=== PATIENT | male | born 1945 | race Caucasian/White ===

== ENCOUNTER 2019-05-11 13:28 | Observation (INO) | payer MEDICARE ==
[~2019-05-11 13:28] MED LIST: ISOVUE-370 76%-LOCM 1 ML ONE
[2019-05-11 14:02] LABS: #Lymphocytes 1.1 thou/uL (1.20-3.40); #Monocytes 0.6 thou/uL (0.11-0.59); #Neutrophils 6.2 thou/uL (1.40-6.50); %Basophils 0.3 % (0.0-1.0); %Eosinophils 0.6 % (0.0-10.0); %Lymphocytes 14.1 % (21.0-51.0); %Monocytes 7.1 % (0.0-10.0); Hemoglobin 13.5 g/dL (14.0-18.0); Mean Corpuscular HGB CONC 34.3 g/dL (32.0-36.0); Mean Corpuscular Hemoglobin 34.5 pg (27.0-31.0); Mean Platelet Volume 9.3 fL (7.4-10.4); Platelet Count 173 thou/uL (130-400); RBC Distribution Width 12.9 % (11.5-14.5); Red Blood Cell (RBC) Count 3.92 mill/uL (4.70-6.10); White Blood Cell (WBC) Count 7.9 thou/uL (4.8-10.8)
[2019-05-11 14:22] LABS: ALT (SGPT) 16 U/L (8-55); AST (SGOT) 32 U/L (5-34); Albumin 4.2 g/dL (3.4-4.8); Alkaline Phosphatase 74 U/L (40-150); Anion Gap 12 mmol/L (10-20); BUN (Urea Nitrogen) 15 mg/dL (8.4-25.7); Bilirubin, Total 0.6 mg/dL (0.2-1.2); Calc. Creatinine Clearance 0 mL/min (70-130); Carbon Dioxide 24 mmol/L (23-31); Chloride 108 mmol/L (98-107); Estimated GFR-MDRD 73; Globulin 2.3 g/dL (2.4-3.5); Glucose 122 mg/dL (83-110); Potassium 3.8 mmol/L (3.5-5.1); Protein, Total 6.5 g/dL (5.8-8.1); Sodium 140 mmol/L (136-145)
[2019-05-11 14:50] LABS: CKMB 19.3 ng/mL (0-6.6)
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
[2019-05-11] MEDS ORDERED: Nitroglycerin 2% Ointment 1 INCH/1 GM Packet ONE (15:46)
[2019-05-11] MEDS ORDERED: Cyclobenzaprine 10 MG TAB ONE (15:46)
[2019-05-11] MEDS ORDERED: Morphine 2 MG/ML SYRINGE SLOW IVP PRN (16:03)
[2019-05-11] MEDS ORDERED: Dextrose 5% in Water 1,000 ML IV PRN (16:03)
[2019-05-11] MEDS ORDERED: hydrALAZINE 20 MG/ML VIAL SLOW IVP PRN (16:03)
[2019-05-11] MEDS ORDERED: Promethazine HCl 25 MG/ML VIAL IM PRN (16:03)
[2019-05-11] MEDS ORDERED: Ondansetron PF 4 MG/2 ML Vial IVP PRN (16:03)
[2019-05-11] MEDS ORDERED: Dextrose 50% Abboject 50 ML SYRINGE SLOW IVP PRN (16:03)
[2019-05-11] MEDS ORDERED: Rib Fracture Protocol PO SCH (16:15)
[2019-05-11] MEDS ORDERED: Ketorolac Tromethamine 30 MG/ML VIAL ONE (17:24)
[2019-05-11 18:46] VITALS: BMI 20.4
[2019-05-11] MEDS ORDERED: Sodium Chloride 0.9% 1,000 ML IV SCH (18:46)
[2019-05-11] MEDS ORDERED: Cyclobenzaprine 10 MG TAB PO PRN (19:00)
[2019-05-11] MEDS: Famotidine 20 MG TAB PO SCH (20:04)
[2019-05-11] MEDS: Gabapentin 100 MG CAP PO SCH (20:04)
[2019-05-11 20:56] LABS: Troponin I 0.074 ng/mL (< 0.028)
[2019-05-11] MEDS: Ibuprofen 600 MG TAB PO SCH (22:20)
[2019-05-12] MEDS: Acetaminophen 500 MG TAB PO SCH ×2 (00:57→05:18)
[2019-05-12] MEDS: traMADol HCl 50 MG TAB PO SCH ×2 (00:57→05:19)
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
[2019-05-12 02:52] LABS: #Basophils 0.1 thou/uL (0.0-0.2); #Lymphocytes 1.5 thou/uL (1.20-3.40); #Monocytes 0.7 thou/uL (0.11-0.59); #Neutrophils 4.2 thou/uL (1.40-6.50); %Eosinophils 0.8 % (0.0-10.0); %Lymphocytes 23.1 % (21.0-51.0); %Neutrophils 64.1 % (42.0-75.0); Hemoglobin 12.7 g/dL (14.0-18.0); Mean Corpuscular Hemoglobin 34.4 pg (27.0-31.0); Mean Platelet Volume 9.3 fL (7.4-10.4); Platelet Count 160 thou/uL (130-400); RBC Distribution Width 13.1 % (11.5-14.5); Red Blood Cell (RBC) Count 3.68 mill/uL (4.70-6.10); White Blood Cell (WBC) Count 6.5 thou/uL (4.8-10.8)
[2019-05-12 03:19] LABS: Troponin I 0.072 ng/mL (< 0.028)
[2019-05-12 03:20] LABS: Anion Gap 13 mmol/L (10-20); BUN (Urea Nitrogen) 16 mg/dL (8.4-25.7); Calc. Creatinine Clearance 61 mL/min (70-130); Carbon Dioxide 24 mmol/L (23-31); Chloride 107 mmol/L (98-107); Estimated GFR-MDRD 76; Glucose 120 mg/dL (83-110); Phosphorus 3.8 mg/dL (2.3-4.7); Potassium 3.8 mmol/L (3.5-5.1); Sodium 140 mmol/L (136-145)
[2019-05-12] MEDS: Ibuprofen 600 MG TAB PO SCH (05:18)
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
[2019-05-12] MEDS: Gabapentin 100 MG CAP PO SCH (08:58)
[2019-05-12] MEDS: Famotidine 20 MG TAB PO SCH (08:59)
[2019-05-12] MEDS ORDERED: traMADol HCl 50 MG TAB PO PRN ×2 (09:11)
[2019-05-12 11:59] VITALS: BP 116/54
[2019-05-12 12:30] VITALS: TEMP 96.2
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
[2019-05-12] MEDS ORDERED: Prevnar 13-Val Conj/PF 0.5 ML SYRINGE IM ONE (21:00)
--- NOTE | 2019-05-16 17:06 | EKG ---
Test Reason : Blood Pressure : / mmHG Vent. Rate : 060 BPM Atrial Rate : 060 BPM P-R Int : 170 ms QRS Dur : 090 ms QT Int : 440 ms P-R-T Axes : 084 064 085 degrees QTc Int : 440 ms Normal sinus rhythm T wave abnormality, consider anterior ischemia Abnormal ECG T wave inversion V1-V3 Confirmed by KHADIJAH DUKE DO ([id number]), book editor JIMMIE CHUNG ([id number]) on 05/16/2019 5:06:34 PM Referred By: Confirmed By:KHADIJAH DUKE DO
== END 2019-05-12 12:46 | disposition home or self-care (01) ==
LOC: ERS 13:28 → 2SW 18:38
PROVIDERS: ADMIT Surgery; ATTEND Surgery
DX: S22.31XA Fracture of one rib, right side, initial encounter for closed fracture (principal); I10 Essential (primary) hypertension; I25.10 Atherosclerotic heart disease of native coronary artery without angina pectoris; Z87.891 Personal history of nicotine dependence; Z95.1 Presence of aortocoronary bypass graft; V54.5XXA Driver of pick-up truck or van injured in collision with heavy transport vehicle or bus in traffic accident, initial encounter
CPT/HCPCS: 71045; 71260; 72125; 74177; 80048; 80053; 82553; 83735; 84100; 84484 ×3; 85025 ×2; 93005; 94640 ×2; 96361 ×2; 97139; G0378 ×2; 36415; 96374; G0390; J1885; J7620

== ENCOUNTER 2020-12-06 12:41 | Inpatient (IN) | payer MEDICARE ==
--- NOTE | 2020-12-06 14:34 | RAD ---
Exam: Chest one view HISTORY:Shortness of breath. Cough. Comparison: 05/12/2019 FINDINGS: Cardiac silhouette:Normal cardiac silhouette. Stable sternotomy wires Aorta: Atherosclerotic Pulmonary vessels: Normal Costophrenic angles: Clear LUNGS: Hyperinflation with chronic changes. No mass or consolidation. Stable emphysematous changes pr edominate in the left upper lobe. Pneumothorax: None Osseous abnormalities: None IMPRESSION: 1. COPD. Emphysema. 2. Atherosclerosis.
--- NOTE | 2020-12-06 14:36 | RAD ---
Exam:3 views left hand HISTORY: Previous trauma to left thumb. COMPARISON: None FINDINGS: Severe degenerative change involving the first carpal metacarpal joint space. There is disl ocation of the first digit at the interphalangeal joint space. There is mild bone demineralization. There is narrowing of the radiocarpal joint space. No acute fractures. IMPRESSION: 1. Dislocation of the first digit at the interphalangeal joint space 2. Chronic severe degenerative changes involving the first carpometacarpal articulation.
[2020-12-06 14:38] LABS: #Lymphocytes 0.4 thou/uL (1.20-3.40); #Monocytes 0.4 thou/uL (0.11-0.59); #Neutrophils 2.9 thou/uL (1.40-6.50); %Basophils 0.3 % (0.0-1.0); %Eosinophils 0.2 % (0.0-10.0); %Lymphocytes 11.8 % (21.0-51.0); %Monocytes 9.2 % (0.0-10.0); %Neutrophils 78.5 % (42.0-75.0); Hemoglobin 12.3 g/dL (14.0-18.0); Mean Corpuscular HGB CONC 30.9 g/dL (32.0-36.0); Mean Corpuscular Hemoglobin 27.4 pg (27.0-31.0); Mean Corpuscular Volume 88.7 fL (78.0-98.0); Mean Platelet Volume 11.3 fL (7.4-10.4); Platelet Count 122 thou/uL (130-400); RBC Distribution Width 18.1 % (11.5-14.5); Red Blood Cell (RBC) Count 4.49 mill/uL (4.70-6.10); White Blood Cell (WBC) Count 3.7 thou/uL (4.8-10.8)
[2020-12-06 14:59] LABS: ALT (SGPT) 79 U/L (8-55); AST (SGOT) 84 U/L (5-34); Albumin 3.4 g/dL (3.4-4.8); Alkaline Phosphatase 118 U/L (40-110); Anion Gap 15 mmol/L (10-20); BUN (Urea Nitrogen) 16 mg/dL (8.4-25.7); CK (CPK) 119 U/L (30-200); Calc. Creatinine Clearance 0 mL/min (70-130); Calcium 8.3 mg/dL (7.8-10.44); Carbon Dioxide 22 mmol/L (23-31); Chloride 105 mmol/L (98-107); Globulin 3.5 g/dL (2.4-3.5); Glucose 93 mg/dL (83-110); Potassium 3.7 mmol/L (3.5-5.1); Protein, Total 6.9 g/dL (5.8-8.1); Sodium 138 mmol/L (136-145)
[2020-12-06] MEDS ORDERED: Vancomycin 1 GM/200 ML BAG ONE (15:14)
[2020-12-06] MEDS ORDERED: Cefepime 2 GM VIAL ONE (15:14)
[2020-12-06] MEDS ORDERED: Acetaminophen 325 MG TAB PO PRN (16:48)
[2020-12-06 16:56] LABS: SARS-CoV-2 NAA Rapid Test DETECTED (NotDetected)
[2020-12-06] MEDS ORDERED: Vancomycin HCl 1 GM in Sodium Chloride 0.9% 250 ML 250 ML IVPB SCH (17:00)
[2020-12-06] MEDS ORDERED: PROVENTIL INHALER 6.7 G (200 INHALATIONS) INH PRN (17:00)
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
[2020-12-06] MEDS ORDERED: Aspirin 81 mg Enteric Coated Tablet PO SCH (17:45)
[2020-12-06 17:52] LABS: Troponin I 0.111 ng/mL (< 0.028)
[2020-12-06 20:44] LABS: Troponin I 0.108 ng/mL (< 0.028)
[2020-12-06] MEDS: Cholecalciferol 1,000 UNITS (25 MCG) TAB PO SCH (20:52)
[2020-12-06] MEDS: Sodium Chloride 0.9% 1,000 ML IV SCH (20:52)
[2020-12-06] MEDS ORDERED: Losartan 25 MG TAB PO SCH (23:45)
[2020-12-06] MEDS ORDERED: Atorvastatin Calcium 20 MG TAB PO SCH (23:45)
[2020-12-07] MEDS: Cefepime 1 GM in Sodium Chloride 0.9% 100 ML IVPB SCH ×2 (03:20→15:51)
[2020-12-07] MEDS: Vancomycin HCl 750 MG in Sodium Chloride 0.9% 250 ML 250 ML IVPB SCH ×2 (05:08→17:18)
[2020-12-07 06:01] LABS: #Lymphocytes 0.7 thou/uL (1.20-3.40); #Monocytes 0.3 thou/uL (0.11-0.59); #Neutrophils 2.1 thou/uL (1.40-6.50); %Basophils 0.3 % (0.0-1.0); %Eosinophils 0.5 % (0.0-10.0); %Lymphocytes 21.4 % (21.0-51.0); %Neutrophils 66.8 % (42.0-75.0); Hemoglobin 9.9 g/dL (14.0-18.0); Mean Corpuscular HGB CONC 30.5 g/dL (32.0-36.0); Mean Corpuscular Hemoglobin 26.8 pg (27.0-31.0); Mean Corpuscular Volume 87.9 fL (78.0-98.0); Platelet Count 151 thou/uL (130-400); RBC Distribution Width 17.6 % (11.5-14.5); White Blood Cell (WBC) Count 3.1 thou/uL (4.8-10.8)
[2020-12-07 06:07] LABS: ALT (SGPT) 69 U/L (8-55); AST (SGOT) 76 U/L (5-34); Albumin 3.1 g/dL (3.4-4.8); Alkaline Phosphatase 100 U/L (40-110); Anion Gap 10 mmol/L (10-20); BUN (Urea Nitrogen) 15 mg/dL (8.4-25.7); Bilirubin, Total 0.9 mg/dL (0.2-1.2); Calc. Creatinine Clearance 64 mL/min (70-130); Calcium 7.8 mg/dL (7.8-10.44); Carbon Dioxide 26 mmol/L (23-31); Chloride 105 mmol/L (98-107); Globulin 3.4 g/dL (2.4-3.5); Glucose 99 mg/dL (83-110); Potassium 3.4 mmol/L (3.5-5.1); Protein, Total 6.5 g/dL (5.8-8.1); Sodium 138 mmol/L (136-145)
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
[2020-12-07] MEDS: Ascorbic Acid 500 mg Chewable Tablet PO SCH (08:11)
[2020-12-07] MEDS: Zinc Sulfate 220 MG CAP PO SCH (08:11)
[2020-12-07] MEDS: Aspirin 81 mg Enteric Coated Tablet PO SCH (08:11)
[2020-12-07] MEDS: Enoxaparin Sodium 40 MG/0.4 ML SYRINGE SC SCH (08:11)
--- NOTE | 2020-12-07 08:47 | PDOC.HOSPP ---
- Subjective Encounter Date: 12/07/20 Subjective: No acute events overnight except for mild right sided chest wall and shoulder pain. Lidocaine patch ordered. Otherwise, he is NPO pending wash out of L thumb infection - Objective Vital Signs & Weight: Vital Signs (12 hours) Temp Pulse Resp BP Pulse Ox 12/07/20 08:15 97.8 F 70 32 H 155/75 H 94 L 12/07/20 03:35 99.5 F 72 20 130/60 91 L Weight Weight 134 lb 4.8 oz I&O: 12/06/20 12/07/20 12/08/20 06:59 06:59 06:59 Intake Total 644 Output Total 100 Balance 544 Result Diagrams: 12/07/20 04:54 12/07/20 04:53 Hospitalist ROS - Medication Medications: Active Medications Generic Name Dose Route Start Last Admin Trade Name Freq PRN Reason Stop Dose Admin Acetaminophen 650 mg 12/06/20 16:48 12/07/20 08:21 Acetaminophen 325 Mg Tab PO 650 mg Q4H PRN Administration Headache/Fever/Mild Pain (1-3) Ascorbic Acid 1,000 mg 12/07/20 09:00 12/07/20 08:11 Ascorbic Acid 500 Mg Chewable Tablet PO 1,000 mg DAILY MIREILLE Administration Aspirin 81 mg 12/07/20 09:00 12/07/20 08:11 Aspirin 81 Mg Enteric Coated Tablet PO 81 mg DAILY MIREILLE Administration Cholecalciferol 1,000 units 12/06/20 21:00 12/06/20 20:52 Cholecalciferol 1,000 Units (25 Mcg) Tab PO 1,000 units HS MIREILLE Administration Enoxaparin Sodium 40 mg 12/07/20 09:00 12/07/20 08:11 Enoxaparin Sodium 40 Mg/0.4 Ml Syringe SC Not Given 0900 MIREILLE Sodium Chloride 1,000 mls @ 50 mls/hr 12/06/20 17:00 12/06/20 20:52 Normal Saline 0.9% IV 1,000 mls .Q20H MIREILLE Administration Cefepime HCl 1 gm/ Sodium 100 mls @ 200 mls/hr 12/07/20 04:00 12/07/20 03:20 Chloride IVPB 100 mls 0400,1600 MIREILLE Administration Vancomycin HCl 750 mg/ Sodium 250 mls @ 250 mls/hr 12/07/20 05:00 01/13/21 05:08 Chloride IVPB 250 mls 0500,1700 MIREILLE Administration Zinc Sulfate 220 mg 12/07/20 09:00 12/07/20 08:11 Zinc Sulfate 220 Mg Cap PO 220 mg DAILY MIREILLE Administration - Exam General Appearance: NAD, awake alert Eye: anicteric sclera ENT: normocephalic atraumatic Neck: supple, symmetric Heart: murmur present Respiratory: CTAB, no wheezes Respiratory - other findings: nasal congestion Extremities: no clubbing, no edema Neurological - other findings: Memory deficits Psychiatric: normal affect Hosp A/P (1) COVID-19 virus infection Code(s): U07.1 - COVID-19 Status: Acute (2) Coronary artery disease Code(s): I25.10 - ATHSCL HEART DISEASE OF [place] CORONARY ARTERY W/O ANG PCTRS Status: Acute (3) Dementia Code(s): F03.90 - UNSPECIFIED DEMENTIA WITHOUT BEHAVIORAL DISTURBANCE Status: Acute (4) Dislocation of left thumb Code(s): S63.105A - UNSPECIFIED DISLOCATION OF LEFT THUMB, INITIAL ENCOUNTER Status: Acute (5) Infected bite wound of finger Code(s): S61.259A - OPEN BITE OF UNSP FINGER WITHOUT DAMAGE TO NAIL, INIT ENCNTR; L08.9 - LOCAL INFECTION OF THE SKIN AND SUBCUTANEOUS TISSUE, UNSP Status: Acute (6) Elevated troponin I level Code(s): R74.8 - ABNORMAL LEVELS OF OTHER SERUM ENZYMES Status: Acute - Plan Assessment Patient is a 75 year old male with a PMH of CAD s/p CABG, Alzheimer's dementia and COPD. He was brought in by EMS after activating the emergency service. Patient is complaining of some shortness of breath and cough. During this visit, he was also found to have a dislocated and infected left thumb. Hand surgery evaluated the patient and plans for surgery on 12/07. Patient himself is a poor historian and it's unclear if there was an underlying traumatic event that can explain his symptoms. CXR was without mention of rib fractures. Dislocated L thumb and infection NPO pending OR today Holding lovenox preoperatively Continue broad spectrum antibiotics perioperatively Rib and shoulder pain I will obtain a dedicated R shoulder x-ray to assess for injuries Occupational therapy post op COVID 19 infection Without hypoxia Currently on vitamins C, D and zinc I will add thiamine today COPD Emphysematous changes as per CXR Not in acute exacerbation Will place on PRN DuoNeb Elevated troponin History of CAD Currently on ASA and atorvastatin Alzheimer's dementia Continue supportive care
[2020-12-07] MEDS ORDERED: Albuterol 200 PUFF (6.7GM INHALER) INH PRN (09:04)
--- NOTE | 2020-12-07 10:02 | RAD ---
RIGHT SHOULDER 3 VIEWS: HISTORY: Right shoulder pain. FINDINGS: There is marked arthritic change of the AC joint. Also, some mild arthritic changes of the glenohume ral joint space. There are no signs of fracture. IMPRESSION: Arthritic changes of the shoulder. No acute injury. POS: [facility]
[2020-12-07] MEDS: Thiamine 100 MG TAB PO SCH (11:41)
[2020-12-07] MEDS: Lidocaine 5% Patch TD SCH (11:41)
[2020-12-07] MEDS ORDERED: Lidocaine 1% PF 5 ML VIAL ONE (12:39)
[2020-12-07] MEDS ORDERED: ePHEDrine 50 MG/ML VIAL ONE (12:39)
[2020-12-07] MEDS ORDERED: PROPOFOL 200 MG/20 ML VIAL ONE (12:39)
[2020-12-07] MEDS ORDERED: Dexamethasone 20 MG/5 ML VIAL ONE (12:39)
[2020-12-07] MEDS ORDERED: Ondansetron PF 4 MG/2 ML Vial ONE (12:39)
[2020-12-07] MEDS ORDERED: Ketorolac Tromethamine 30 MG/ML VIAL ONE (12:39)
[2020-12-07] MEDS ORDERED: Fentanyl 100 MCG/2 ML VIAL ONE ×2 (16:04→17:46)
[2020-12-07] MEDS ORDERED: Tobramycin Sulfate 1.2 GM VIAL ONE (16:27)
[2020-12-07] MEDS ORDERED: Bupivacaine PF 0.5% 30 ML VIAL ONE (16:35)
[2020-12-07] MEDS ORDERED: Mineral Oil Sterile 10ML 10 ML UDCUP ONE (16:35)
[2020-12-07] MEDS ORDERED: Thrombin 5000 UNITS/5 ML VIAL ONE (16:36)
[2020-12-07] MEDS ORDERED: Sodium Chloride 0.9% 20 ML ONE (16:36)
[2020-12-07] MEDS: Sodium Chloride 0.9% 1,000 ML IV SCH (16:36)
[2020-12-07] MEDS ORDERED: Bacitracin Zinc Ointment 30 gm TUBE ONE (16:36)
[2020-12-07] MEDS ORDERED: Sodium Chloride 0.9% 10 ML ONE (17:18)
[2020-12-07] MEDS ORDERED: Ondansetron HCl/PF 4 MG/2 ML Vial IVP PRN (17:49)
[2020-12-07] MEDS ORDERED: Promethazine HCl 25 MG/ML VIAL SLOW IVP PRN (17:49)
[2020-12-07] MEDS ORDERED: Promethazine HCl 25 MG/ML VIAL IM PRN (17:49)
--- NOTE | 2020-12-07 18:47 | RAD ---
3 intraoperative images of the left thumb: : 12/07/2020 COMPARISON: 12/06/2020 HISTORY: ORIF FINDINGS: The previously noted dislocation of the first interphalangeal joint has been reduced and tr eated with percutaneous pinning. IMPRESSION: ORIF as above.
[2020-12-07] MEDS ORDERED: MORPHINE 5 MG/10 ML PF VIAL IV SCH (20:00)
[2020-12-07] MEDS: Atorvastatin Calcium 20 MG TAB PO SCH (20:07)
[2020-12-07] MEDS: Losartan 25 MG TAB PO SCH (20:07)
[2020-12-07] MEDS: Cholecalciferol 1,000 UNITS (25 MCG) TAB PO SCH (20:07)
[2020-12-07] MEDS: Lidocaine Patch Removal 1 EACH TOP SCH (20:12)
[2020-12-07] MEDS ORDERED: FLU VACC QS2020-21(65YR UP)/PF 240 MCG/0.7 ML SYRINGE IM ONE (21:00)
[2020-12-08] MEDS: Cefepime 1 GM in Sodium Chloride 0.9% 100 ML IVPB SCH ×2 (04:35→16:08)
[2020-12-08 05:50] LABS: Vancomycin, Trough 9.7 ug/mL
[2020-12-08] MEDS: Vancomycin HCl 750 MG in Sodium Chloride 0.9% 250 ML 250 ML IVPB SCH (06:14)
--- NOTE | 2020-12-08 07:58 | OP ---
DATE OF PROCEDURE: 12/07/2020 PREOPERATIVE DIAGNOSIS: Left thumb 1.5 cm wound with open dislocation of the interphalangeal joint (proximal phalanx with palmar and the distal phalanx with dorsal with exposed bone subacute nature because we did not know the exact etiology of the injury). POSTOPERATIVE DIAGNOSES: 1. Left thumb subacute open dorsal dislocation of the interphalangeal joint of the left thumb. 2. Volar plate rupture with missing palmar aspects/material. 3. Compression because of the locked dislocation of the neurovascular bundle leading to spasm. PROCEDURES PERFORMED: 1. Neuroplasty of digital nerve, radial and ulnar under magnification. 2. Debridement of wound and material associated with open fracture. 3. Open treatment of the dislocation, thumb interphalangeal with pinning. 4. Thumb metacarpal head chondroplasty and culture and joint culture . FINDINGS: Gross dry blood with exposed metacarpal area palmar aspect that was dislocated as well as no gross infection seen. DESCRIPTION OF PROCEDURE: After successful general endotracheal anesthesia, the limb was prepped and draped. The patient had the laceration over what would be the volar plate area with a frame protection around it and exposure. We then, after exsanguination of the limb, extended the incision 1 cm distal and 8 mm proximally until we saw the neurovascular bundles, performed a neuroplasty, assured that the rami were intact and they were. We went deep to the metacarpal head, which would be the dorsum of the joint, did a debridement using tenotomy scissors, heavy suture, and then once we had done, identified that the volar plate was lacerated and did not have a proximal portion, we decided we need stabilization as well as debridement. In order to do that, the patient had the chondral head completely exposed. We resected with a rongeur the collateral ligament portion, which was now gunter soft tissue and we were able to remove all the chondral surface that was still stained with products of probable bleeding from the chondral exposure. We then used tenotomy scissors, Seneca blade, Adson's, 4 L of Pulsavac irrigation with antibiotics inside, continued to clear the joint and surrounding surfaces. We then noticed there was still some chondral surface still slightly discolored under magnification. We removed with a combination of rongeur and a small curette. We then were able to finish the irrigation with 2 L of normal saline with antibiotics inside and Pulsavac pressure until we had glistening surfaces on each side of the joint. We then reduced the joint and held it, but it was unstable with another interphalangeal joint extension, hyperextension of that joint. The tourniquet was deflated. We had done the chondral resection using a combination of Seneca blade, tenotomy scissors, curettes. We had some exposed cartilage on the posterior curvature and especially in the sagittal plane of the bone, but we did not have any gross infection. We finished our debridement of the neurovascular area without removing any K-wire or removing any sutures. Then, here we visualized the volar plate as being somewhat incompetent, so we felt that once reduction took place, we would need to release to protect the volar plate with partial flexion. Tourniquet was deflated. We irrigated again. At this time, the chondral surface completely clear of any gross staining as well as any potential infection, enough that we felt comfortable with closure due to inspecting and found no collateral instability, but we were able to obtain hemostasis of the available area. With tourniquet time 18 minutes, it was released. We controlled the blood flow to the point of only 10 mL blood loss and we closed with 4-0 nylon only the portion of the incision that was totally new and left the remaining transverse limb on the radial ulnar aspect completely open. The wire was advanced and pulled back 6 mm and from here, the K-wire that was used to hold reduction was inspected, no abnormality, and we were able to obtain and maintain stability. Job ID: [id number]
[2020-12-08] MEDS: Lidocaine 5% Patch TD SCH (08:03)
[2020-12-08] MEDS: Zinc Sulfate 220 MG CAP PO SCH (08:04)
[2020-12-08] MEDS: Ascorbic Acid 500 mg Chewable Tablet PO SCH (08:04)
[2020-12-08] MEDS: Aspirin 81 mg Enteric Coated Tablet PO SCH (08:04)
[2020-12-08] MEDS: Thiamine 100 MG TAB PO SCH (08:04)
[2020-12-08] MEDS: Enoxaparin Sodium 40 MG/0.4 ML SYRINGE SC SCH (08:04)
[2020-12-08] MEDS: Sodium Chloride 0.9% 1,000 ML IV SCH ×2 (08:18→14:49)
[2020-12-08 09:39] LABS: #Lymphocytes 0.2 thou/uL (1.20-3.40); #Monocytes 0.2 thou/uL (0.11-0.59); #Neutrophils 1.3 thou/uL (1.40-6.50); %Basophils 0.8 % (0.0-1.0); %Eosinophils 0.1 % (0.0-10.0); %Monocytes 11.1 % (0.0-10.0); %Neutrophils 74.9 % (42.0-75.0); Hemoglobin 9.3 g/dL (14.0-18.0); Mean Corpuscular HGB CONC 30.3 g/dL (32.0-36.0); Mean Corpuscular Hemoglobin 26.7 pg (27.0-31.0); Mean Corpuscular Volume 88.2 fL (78.0-98.0); Platelet Count 134 thou/uL (130-400); RBC Distribution Width 17.6 % (11.5-14.5); Red Blood Cell (RBC) Count 3.47 mill/uL (4.70-6.10); White Blood Cell (WBC) Count 1.7 thou/uL (4.8-10.8)
[2020-12-08 10:02] LABS: Anion Gap 13 mmol/L (10-20); BUN (Urea Nitrogen) 14 mg/dL (8.4-25.7); CRP (Inflammatory) 10.02 mg/dL (= or < 0.5); Calc. Creatinine Clearance 68 mL/min (70-130); Calcium 7.6 mg/dL (7.8-10.44); Carbon Dioxide 21 mmol/L (23-31); Chloride 109 mmol/L (98-107); Glucose 138 mg/dL (83-110); Potassium 3.5 mmol/L (3.5-5.1); Sodium 139 mmol/L (136-145)
--- NOTE | 2020-12-08 13:43 | PDOC.HOSPP ---
- Subjective Encounter Date: 12/08/20 Subjective: POD #1 s/p repair of L thumb dislocation, and I&D. Procedure well tolerated. RN suspects that he's having issues swallowing. - Objective Vital Signs & Weight: Vital Signs (12 hours) Temp Pulse Resp BP Pulse Ox 12/08/20 06:15 95 12/08/20 03:45 97.6 F 63 24 H 144/65 H 95 Weight Admit Weight 134 lb 4.8 oz Weight 134 lb 4.8 oz I&O: 12/07/20 12/08/20 12/09/20 06:59 06:59 06:59 Intake Total 644 628 Output Total 100 Balance 544 628 Result Diagrams: 12/08/20 09:29 12/08/20 09:29 Hospitalist ROS - Medication Medications: Active Medications Generic Name Dose Route Start Last Admin Trade Name Freq PRN Reason Stop Dose Admin Acetaminophen 650 mg 12/06/20 16:48 12/07/20 08:21 Acetaminophen 325 Mg Tab PO 650 mg Q4H PRN Administration Headache/Fever/Mild Pain (1-3) Ascorbic Acid 1,000 mg 12/07/20 09:00 12/08/20 08:04 Ascorbic Acid 500 Mg Chewable Tablet PO 1,000 mg DAILY MIREILLE Administration Aspirin 81 mg 12/07/20 09:00 12/08/20 08:04 Aspirin 81 Mg Enteric Coated Tablet PO 81 mg DAILY MIREILLE Administration Atorvastatin Calcium 20 mg 12/07/20 21:00 12/07/20 20:07 Atorvastatin Calcium 20 Mg Tab PO 20 mg HS MIREILLE Administration Cholecalciferol 1,000 units 12/06/20 21:00 12/07/20 20:07 Cholecalciferol 1,000 Units (25 Mcg) Tab PO 1,000 units HS MIREILLE Administration Enoxaparin Sodium 40 mg 12/07/20 09:00 12/08/20 08:04 Enoxaparin Sodium 40 Mg/0.4 Ml Syringe SC 40 mg 0900 MIREILLE Administration Sodium Chloride 1,000 mls @ 50 mls/hr 12/06/20 17:00 12/08/20 08:18 Normal Saline 0.9% IV Not Given .Q20H MIREILLE Cefepime HCl 1 gm/ Sodium 100 mls @ 200 mls/hr 12/07/20 04:00 12/08/20 04:35 Chloride IVPB 100 mls 0400,1600 MIREILLE Administration Lidocaine 2 patch 12/07/20 09:00 12/08/20 08:03 Lidocaine 5% Patch TD 2 patch DAILY MIREILLE Administration Losartan Potassium 25 mg 12/07/20 21:00 12/07/20 20:07 Losartan 25 Mg Tab PO 25 mg HS MIREILLE Administration Miscellaneous Medication 2 each 12/07/20 21:00 12/07/20 20:12 Lidocaine Patch Removal 1 Each TOP Not Given 2100 MIREILLE Thiamine HCl 100 mg 12/07/20 09:00 12/08/20 08:04 Thiamine 100 Mg Tab PO 100 mg DAILY MIREILLE Administration Zinc Sulfate 220 mg 12/07/20 09:00 12/08/20 08:04 Zinc Sulfate 220 Mg Cap PO 220 mg DAILY MIREILLE Administration - Exam General Appearance: NAD ENT: normocephalic atraumatic Neck: supple, symmetric Heart: murmur present Respiratory: CTAB, no wheezes, no rales, no ronchi Extremities: no cyanosis, no clubbing, no edema Extremities - other findings: L thumb wrapped. Gauze clean and dry. Musculoskeletal: normal strength Psychiatric: normal affect, normal behavior Hosp A/P (1) COVID-19 virus infection Code(s): U07.1 - COVID-19 Status: Acute (2) Coronary artery disease Code(s): I25.10 - ATHSCL HEART DISEASE OF [place] CORONARY ARTERY W/O ANG PCTRS Status: Acute (3) Dementia Code(s): F03.90 - UNSPECIFIED DEMENTIA WITHOUT BEHAVIORAL DISTURBANCE Status: Acute (4) Dislocation of left thumb Code(s): S63.105A - UNSPECIFIED DISLOCATION OF LEFT THUMB, INITIAL ENCOUNTER Status: Acute (5) Infected bite wound of finger Code(s): S61.259A - OPEN BITE OF UNSP FINGER WITHOUT DAMAGE TO NAIL, INIT ENCNTR; L08.9 - LOCAL INFECTION OF THE SKIN AND SUBCUTANEOUS TISSUE, UNSP Status: Acute (6) Elevated troponin I level Code(s): R74.8 - ABNORMAL LEVELS OF OTHER SERUM ENZYMES Status: Acute - Plan Assessment Patient is a 75 year old male with a PMH of CAD s/p CABG, Alzheimer's dementia and COPD. He was brought in by EMS after activating the emergency service. Found to have dislocated L thumb on arrival, s/p ORIF and I&D on 12/07. Hypoxic on arrival, tested + for COVID 19. NO consolidations on CXR. He is requiring supplemental O2. Patient himself is a poor historian and it's unclear if there was an underlying traumatic event that can explain his symptoms. Dislocated L thumb and infection POD#1 s/p ORIF and I&D Continue MMP regimen Resume lovenox due to DVT ppx Follow up IOP cultures Continue broad spectrum antibiotics perioperatively Rib and shoulder pain Fractures or injuries have been ruled out Occupational therapy and PT ordered on 12/07 Acute hypoxemic respiratory failure No consolidation on CXR except for emphysematous changes Now with increased O2 requirement I will order a CTA chest due to high D dimers in the setting of COVID 19 infection Continue supplemental O2 COVID 19 pna Currently on vitamins B1, C, D and zinc I will start him on dexamethasone on 12/08 Suspected Dysphagia 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
[2020-12-08] MEDS ORDERED: Dexamethasone 6 MG in Sodium Chloride 0.9% 50 ML IVPB SCH (14:00)
[2020-12-08] MEDS ORDERED: Iopamidol-370 76% 500 ML 1 ML ONE (14:24)
[2020-12-08] MEDS ORDERED: Lorazepam 2 MG/ML VIAL SLOW IVP SCH (16:00)
[2020-12-08] MEDS: Vancomycin HCl 1.25 GM in Sodium Chloride 0.9% 250 ML 250 ML IVPB SCH (17:27)
--- NOTE | 2020-12-08 17:44 | CT ---
CT arteriogram chest with IV contrast and 3-D imaging HISTORY: Dyspnea. COVID positive. COMPARISON: 05/11/2019. FINDINGS: There is good contrast opacification of the pulmonary arteries. Aortic arch not opacified. Normal branching great vessels. Stents within the aortic valve and coronary arteries. Injected IV contrast extends into the inferior vena cava and hepatic veins. Peripheral interstitial scarring and thickening is more pronounced in the right lung than the left. L ungs are hyperinflated with linear interstitial scarring. No lobar consolidation. Nonenlarged, nonspecific mediastinal lymph nodes. No pleural fluid or pneumothorax. IMPRESSION : No evidence of pulmonary embolus. Pulmonary hyperinflation with interval progression of bilateral interstitial scarring, right greater than left. Acute inflammation not reliably demonstrated. Reflux of IV contrast into the hepatic veins suggestive of poor cardiac output.
[2020-12-08] MEDS: Losartan 25 MG TAB PO SCH (22:18)
[2020-12-08] MEDS: Lidocaine Patch Removal 1 EACH TOP SCH (22:19)
[2020-12-08] MEDS: Cholecalciferol 1,000 UNITS (25 MCG) TAB PO SCH (22:19)
[2020-12-08] MEDS: Atorvastatin Calcium 20 MG TAB PO SCH (22:19)
[2020-12-09] MEDS: Sodium Chloride 0.9% 1,000 ML IV SCH (03:22)
[2020-12-09] MEDS: Cefepime 1 GM in Sodium Chloride 0.9% 100 ML IVPB SCH ×2 (05:07→15:27)
[2020-12-09] MEDS: Vancomycin HCl 1.25 GM in Sodium Chloride 0.9% 250 ML 250 ML IVPB SCH ×2 (06:10→17:49)
[2020-12-09] MEDS: Ascorbic Acid 500 mg Chewable Tablet PO SCH (07:54)
[2020-12-09] MEDS: Dexamethasone 4 mg/ml Vial SLOW IVP SCH (07:54)
[2020-12-09] MEDS: Aspirin 81 mg Enteric Coated Tablet PO SCH (07:54)
[2020-12-09] MEDS: Lidocaine 5% Patch TD SCH (07:55)
[2020-12-09] MEDS: Enoxaparin Sodium 40 MG/0.4 ML SYRINGE SC SCH (07:55)
[2020-12-09] MEDS: Zinc Sulfate 220 MG CAP PO SCH (07:56)
[2020-12-09] MEDS: Thiamine 100 MG TAB PO SCH (07:56)
[2020-12-09] MEDS ORDERED: Dexamethasone 6 MG in Sodium Chloride 0.9% 50 ML IVPB SCH (09:00)
[2020-12-09 11:56] LABS: #Lymphocytes 0.4 thou/uL (1.20-3.40); #Monocytes 0.3 thou/uL (0.11-0.59); #Neutrophils 5.4 thou/uL (1.40-6.50); %Eosinophils 0.1 % (0.0-10.0); %Lymphocytes 6.1 % (21.0-51.0); %Monocytes 5.6 % (0.0-10.0); %Neutrophils 88.2 % (42.0-75.0); Hemoglobin 9.9 g/dL (14.0-18.0); Mean Corpuscular Hemoglobin 28.5 pg (27.0-31.0); Mean Corpuscular Volume 89.1 fL (78.0-98.0); Mean Platelet Volume 11.6 fL (7.4-10.4); Platelet Count 146 thou/uL (130-400); RBC Distribution Width 17.6 % (11.5-14.5); Red Blood Cell (RBC) Count 3.48 mill/uL (4.70-6.10); White Blood Cell (WBC) Count 6.1 thou/uL (4.8-10.8)
[2020-12-09 12:17] LABS: ALT (SGPT) 54 U/L (8-55); AST (SGOT) 60 U/L (5-34); Albumin 3.2 g/dL (3.4-4.8); Alkaline Phosphatase 117 U/L (40-110); Bilirubin, Direct 0.6 mg/dL (0.1-0.3); Bilirubin, Total 0.8 mg/dL (0.2-1.2); Protein, Total 6.3 g/dL (5.8-8.1)
[2020-12-09 12:22] LABS: Troponin I 0.102 ng/mL (< 0.028)
--- NOTE | 2020-12-09 15:54 | PDOC.HOSPP ---
- Subjective Encounter Date: 12/09/20 Subjective: Overnight. Patient is currently on room air and comfortable. He is however confused due to underlying dementia. I have consulted case management because I am concerned about his ability to care for himself. Is very tangential when you talk to him, hardly staying on subject. - Objective Vital Signs & Weight: Vital Signs (12 hours) Temp Pulse Resp BP Pulse Ox 12/09/20 10:35 97.4 F L 65 24 H 138/64 95 12/09/20 08:26 96.2 F L 64 24 H 158/68 H 98 Weight Admit Weight 134 lb 4.8 oz Weight 134 lb 4.8 oz I&O: 12/08/20 12/09/20 12/10/20 06:59 06:59 06:59 Intake Total 628 2223 480 Output Total 1773 300 Balance 628 450 180 Result Diagrams: 12/09/20 11:32 12/08/20 09:29 Hospitalist ROS - Medication Medications: Active Medications Generic Name Dose Route Start Last Admin Trade Name Freq PRN Reason Stop Dose Admin Acetaminophen 650 mg 12/06/20 16:48 12/07/20 08:21 Acetaminophen 325 Mg Tab PO 650 mg Q4H PRN Administration Headache/Fever/Mild Pain (1-3) Ascorbic Acid 1,000 mg 12/07/20 09:00 12/09/20 07:54 Ascorbic Acid 500 Mg Chewable Tablet PO 1,000 mg DAILY MIREILLE Administration Aspirin 81 mg 12/07/20 09:00 12/09/20 07:54 Aspirin 81 Mg Enteric Coated Tablet PO 81 mg DAILY MIREILLE Administration Atorvastatin Calcium 20 mg 12/07/20 21:00 12/08/20 22:19 Atorvastatin Calcium 20 Mg Tab PO 20 mg HS MIREILLE Administration Cholecalciferol 1,000 units 12/06/20 21:00 12/08/20 22:19 Cholecalciferol 1,000 Units (25 Mcg) Tab PO 1,000 units HS MIREILLE Administration Dexamethasone 6 mg 12/09/20 09:00 12/09/20 07:54 Dexamethasone 4 Mg/Ml Vial SLOW IVP 6 mg DAILY MIREILLE Administration Enoxaparin Sodium 40 mg 12/07/20 09:00 12/09/20 07:55 Enoxaparin Sodium 40 Mg/0.4 Ml Syringe SC 40 mg 0900 MIREILLE Administration Sodium Chloride 1,000 mls @ 50 mls/hr 12/06/20 17:00 12/09/20 03:22 Normal Saline 0.9% IV 1,000 mls .Q20H MIREILLE Administration Cefepime HCl 1 gm/ Sodium 100 mls @ 200 mls/hr 12/07/20 04:00 12/09/20 15:27 Chloride IVPB 100 mls 0400,1600 MIREILLE Administration Vancomycin HCl 1.25 gm/ Sodium 250 mls @ 166.667 mls/hr 12/08/20 17:00 12/09/20 06:10 Chloride IVPB 250 mls 0500,1700 MIREILLE Administration Lidocaine 2 patch 12/07/20 09:00 12/09/20 07:55 Lidocaine 5% Patch TD 2 patch DAILY MIREILLE Administration Losartan Potassium 25 mg 12/07/20 21:00 12/08/20 22:18 Losartan 25 Mg Tab PO 25 mg HS MIREILLE Administration Miscellaneous Medication 2 each 12/07/20 21:00 12/08/20 22:19 Lidocaine Patch Removal 1 Each TOP 2 each 2100 MIREILLE Administration Thiamine HCl 100 mg 12/07/20 09:00 12/09/20 07:56 Thiamine 100 Mg Tab PO 100 mg DAILY MIREILLE Administration Zinc Sulfate 220 mg 12/07/20 09:00 12/09/20 07:56 Zinc Sulfate 220 Mg Cap PO 220 mg DAILY MIREILLE Administration - Exam General Appearance: NAD, awake alert Eye: PERRL ENT: normocephalic atraumatic Neck: supple, symmetric Heart: RRR, no murmur, no gallops, no rubs Respiratory: no wheezes, rhonchi Gastrointestinal: soft, non-tender, non-distended, normal bowel sounds Extremities: no cyanosis, no clubbing, no edema Musculoskeletal: normal tone, normal strength, no muscle wasting Psychiatric - other findings: Demented Hosp A/P (1) COVID-19 virus infection Code(s): U07.1 - COVID-19 Status: Acute (2) Coronary artery disease Code(s): I25.10 - ATHSCL HEART DISEASE OF [place] CORONARY ARTERY W/O ANG PCTRS Status: Acute (3) Dementia Code(s): F03.90 - UNSPECIFIED DEMENTIA WITHOUT BEHAVIORAL DISTURBANCE Status: Acute (4) Dislocation of left thumb Code(s): S63.105A - UNSPECIFIED DISLOCATION OF LEFT THUMB, INITIAL ENCOUNTER Status: Acute (5) Infected bite wound of finger Code(s): S61.259A - OPEN BITE OF UNSP FINGER WITHOUT DAMAGE TO NAIL, INIT ENCNTR; L08.9 - LOCAL INFECTION OF THE SKIN AND SUBCUTANEOUS TISSUE, UNSP Status: Acute (6) Elevated troponin I level Code(s): R74.8 - ABNORMAL LEVELS OF OTHER SERUM ENZYMES Status: Acute - Plan Assessment Patient is a 75 year old male with a PMH of CAD s/p CABG, Alzheimer's dementia and COPD. He was brought in by EMS after activating the emergency service. Found to have dislocated L thumb on arrival, s/p ORIF and I&D on 12/07. Hypoxic on arrival, tested + for COVID 19. NO consolidations on CXR. Is currently on systemic steroids and has been weaned off supplemental oxygen. Patient is a poor historian and it's unclear if there was an underlying traumatic event that can explain his symptoms. Dislocated L thumb and infection POD#2 s/p ORIF and I&D Broad-spectrum antibiotics pending finalization of intraoperative cultures Continue MMP regimen Lovenox for DVT prophylaxis Resume lovenox due to DVT ppx Rib and shoulder pain Other x-ray ruled out fractures or injuries Occupational therapy and PT board corporate operations compliance manager has been consulted and we are contemplating SNF placement Appreciate assistance from case management Acute hypoxemic respiratory failure No consolidation on CXR except for emphysematous changes Currently on room air. Pulmonary embolism ruled out. COVID 19 pna Day 2 of dexamethasone Continue multivitamins and zinc DVT prophylaxis with Lovenox currently on vitamins B1, C, D and zinc Suspected Dysphagia CAT HOOKER ordered COPD Emphysematous changes as per CXR Not in acute exacerbation As needed albuterol sulfate inhaler on board Elevated troponin History of CAD Currently on ASA and atorvastatin Alzheimer's dementia Continue supportive care
[2020-12-09] MEDS: Haloperidol Lactate 5 MG/ML VIAL SLOW IVP PRN ×2 (16:28→21:49)
--- NOTE | 2020-12-09 17:37 | RAD ---
XR Chest 1 View HISTORY: Chest pain COMPARISON: 12/06/2020 FINDINGS: The heart size is normal. Changes of median sternotomy again seen. The aorta is tortuous. T here are changes of COPD. The lungs are well expanded without focal areas of consolidation, pneumothorax or pleural effusions. IMPRESSION: No radiographic evidence of acute cardiopulmonary process.
[2020-12-09 18:26] LABS: Troponin I 0.104 ng/mL (< 0.028)
[2020-12-09] MEDS ORDERED: Mag-Al Plus 1200 MG/1200 MG/120 MG/30 ML UDCUP PO PRN (18:28)
[2020-12-09] MEDS ORDERED: Nitroglycerin 0.4 MG TAB (25 Tab Bottle) SL PRN (18:33)
[2020-12-09 18:58] LABS: #Lymphocytes 0.5 thou/uL (1.20-3.40); #Monocytes 0.6 thou/uL (0.11-0.59); %Basophils 0.1 % (0.0-1.0); %Eosinophils 0.2 % (0.0-10.0); %Lymphocytes 5.3 % (21.0-51.0); %Monocytes 6.1 % (0.0-10.0); %Neutrophils 88.4 % (42.0-75.0); Hemoglobin 10.9 g/dL (14.0-18.0); Mean Corpuscular HGB CONC 31.8 g/dL (32.0-36.0); Mean Corpuscular Hemoglobin 27.8 pg (27.0-31.0); Mean Corpuscular Volume 87.6 fL (78.0-98.0); Mean Platelet Volume 11.2 fL (7.4-10.4); Platelet Count 236 thou/uL (130-400); RBC Distribution Width 17.9 % (11.5-14.5); Red Blood Cell (RBC) Count 3.91 mill/uL (4.70-6.10); White Blood Cell (WBC) Count 10.2 thou/uL (4.8-10.8)
[2020-12-09] MEDS: Atorvastatin Calcium 20 MG TAB PO SCH (19:51)
[2020-12-09] MEDS: Losartan 25 MG TAB PO SCH (19:51)
[2020-12-09] MEDS: Cholecalciferol 1,000 UNITS (25 MCG) TAB PO SCH (19:52)
[2020-12-09] MEDS ORDERED: Pantoprazole 40 MG VIAL IVP SCH (20:00)
[2020-12-09] MEDS ORDERED: Metoprolol Tartrate 25 MG TAB PO SCH (20:00)
[2020-12-09] MEDS ORDERED: Lorazepam 2 MG/ML VIAL SLOW IVP SCH (23:45)
--- NOTE | 2020-12-09 23:45 | PDOC.EVN ---
Event Note - Event Note Event Note: Nursing called, patient anxious, s/p haldol without improvement of symptoms. EKG showed prolong QT. D/Cd haldol. Check Mag level. Gave ativan 0.25mg IVP x 1 dose.
[2020-12-10] MEDS: Lidocaine Patch Removal 1 EACH TOP SCH ×2 (00:14→21:09)
[2020-12-10 01:44] LABS: Troponin I 0.217 ng/mL (< 0.028)
[2020-12-10] MEDS ORDERED: Albuterol 200 PUFF (6.7GM INHALER) INH PRN (04:20)
[2020-12-10] MEDS ORDERED: Furosemide 40 MG/4 ML VIAL SLOW IVP SCH ×2 (04:30→09:00)
[2020-12-10 04:54] LABS: Vancomycin, Trough 20.5 ug/mL
[2020-12-10 04:56] LABS: Anion Gap 15 mmol/L (10-20); BUN (Urea Nitrogen) 18 mg/dL (8.4-25.7); CRP (Inflammatory) 4.73 mg/dL (= or < 0.5); Calc. Creatinine Clearance 67 mL/min (70-130); Carbon Dioxide 23 mmol/L (23-31); Chloride 111 mmol/L (98-107); Glucose 161 mg/dL (83-110); Magnesium 2.1 mg/dL (1.6-2.6); Potassium 3.5 mmol/L (3.5-5.1); Sodium 145 mmol/L (136-145)
[2020-12-10 05:08] LABS: Actual Bicarbonate (HCO3a) 23.7 mEq/L (22-28); Base Excess (BEa) -1.1 mEq/L (-2.0 to +3.0); CO2 Tension 39.7 mmHg (35.0-45.0); Calcium, Ionized (arterial) 1.13 mmol/L (1.12-1.30); Carboxyhemoglobin (COHb) 0.7 gm% (0.0-3.0); Hemoglobin (Hb) 12.4 g/dL (14.0-18.0); O2 Tension (PaO2), arterial 95.5 mmHg (> 70.0); Potassium - ABG Lab 4.16 mmol/L (3.70-5.30); pH, Arterial 7.39 (7.35-7.45)
[2020-12-10 05:11] LABS: ALV-art Gradient 567.875 mmHg (0-20); Puncture Site RBA
[2020-12-10] MEDS: Cefepime 1 GM in Sodium Chloride 0.9% 100 ML IVPB SCH ×2 (05:48→15:56)
[2020-12-10] MEDS: Vancomycin HCl 1.25 GM in Sodium Chloride 0.9% 250 ML 250 ML IVPB SCH (05:49)
[2020-12-10 08:58] LABS: Cardiac Risk 3.4 (Less than 4.5)
[2020-12-10] MEDS ORDERED: Metoprolol Tartrate 25 MG TAB PO SCH (09:00)
[2020-12-10 09:04] LABS: Troponin I 0.439 ng/mL (< 0.028)
[2020-12-10] MEDS: Ascorbic Acid 500 mg Chewable Tablet PO SCH (10:21)
[2020-12-10] MEDS: Zinc Sulfate 220 MG CAP PO SCH (10:22)
[2020-12-10] MEDS: Aspirin 81 mg Enteric Coated Tablet PO SCH (10:22)
[2020-12-10] MEDS: Thiamine 100 MG TAB PO SCH (10:22)
[2020-12-10] MEDS: Dexamethasone 4 mg/ml Vial SLOW IVP SCH (10:24)
[2020-12-10] MEDS: Enoxaparin Sodium 40 MG/0.4 ML SYRINGE SC SCH (10:26)
[2020-12-10] MEDS: Pantoprazole 40 MG VIAL IVP SCH (10:27)
[2020-12-10] MEDS: Lidocaine 5% Patch TD SCH (10:27)
--- NOTE | 2020-12-10 11:44 | PDOC.HOSPP ---
- Subjective Encounter Date: 12/10/20 Subjective: Agitated over the past 24 hours. Received low dose IV haldol. He unforunatley developed chest pain afterwards. EKG showing QT prolongation and Twi, troponin jarrod to 0.41. - Objective Vital Signs & Weight: Vital Signs (12 hours) Temp Pulse Resp BP Pulse Ox 12/10/20 10:35 60 28 H 143/67 H 100 12/10/20 08:46 97 12/10/20 08:40 92 38 H 153/75 H 95 12/10/20 08:00 143/75 H 12/10/20 07:29 97.0 F L 94 30 H 143/65 H 95 12/10/20 07:22 100 12/10/20 03:47 88 46 H 155/77 H 83 L Weight Admit Weight 134 lb 4.8 oz Weight 134 lb 4.8 oz I&O: 12/09/20 12/10/20 12/11/20 06:59 06:59 06:59 Intake Total 2223 600 Output Total 1773 600 500 Balance 450 0 -500 Result Diagrams: 12/09/20 18:49 12/10/20 04:15 Hospitalist ROS - Medication Medications: Active Medications Generic Name Dose Route Start Last Admin Trade Name Freq PRN Reason Stop Dose Admin Acetaminophen 650 mg 12/06/20 16:48 12/07/20 08:21 Acetaminophen 325 Mg Tab PO 650 mg Q4H PRN Administration Headache/Fever/Mild Pain (1-3) Albuterol Sulfate 1 puff 12/10/20 04:20 12/10/20 04:34 Albuterol 200 Puff (6.7gm Inhaler) INH 1 puff Q4H PRN Administration SOB/WHEEZE Ascorbic Acid 1,000 mg 12/07/20 09:00 12/10/20 10:21 Ascorbic Acid 500 Mg Chewable Tablet PO Not Given DAILY MIREILLE Aspirin 81 mg 12/07/20 09:00 12/10/20 10:22 Aspirin 81 Mg Enteric Coated Tablet PO Not Given DAILY MIRE[facility]LE Atorvastatin Calcium 20 mg 12/07/20 21:00 12/09/20 19:51 Atorvastatin Calcium 20 Mg Tab PO 20 mg HS MIREILLE Administration Cholecalciferol 1,000 units 12/06/20 21:00 12/09/20 19:52 Cholecalciferol 1,000 Units (25 Mcg) Tab PO 1,000 units HS MIRE[facility]LE Administration Dexamethasone 6 mg 12/09/20 09:00 12/10/20 10:24 Dexamethasone 4 Mg/Ml Vial SLOW IVP 6 mg DAILY MIRE[facility]LE Administration Enoxaparin Sodium 40 mg 12/07/20 09:00 12/10/20 10:26 Enoxaparin Sodium 40 Mg/0.4 Ml Syringe SC 40 mg 0900 [facility] Administration Cefepime HCl 1 gm/ Sodium 100 mls @ 200 mls/hr 12/07/20 04:00 12/10/20 05:48 Chloride IVPB 100 mls 0400,1600 [facility]RE[facility] Administration Lidocaine 2 patch 12/07/20 09:00 12/10/20 10:27 Lidocaine 5% Patch TD 2 patch DAILY MIRE[facility]LE Administration Losartan Potassium 25 mg 12/07/20 21:00 12/09/20 19:51 Losartan 25 Mg Tab PO 25 mg HS MIRE[facility]LE Administration Metoprolol Tartrate 25 mg 12/10/20 09:00 12/10/20 10:22 Metoprolol Tartrate 25 Mg Tab PO Not Given BID [facility] Miscellaneous Medication 2 each 12/07/20 21:00 12/10/20 00:14 Lidocaine Patch Removal 1 Each TOP Not Given 2100 [facility]RE[place] Pantoprazole Sodium 40 mg 12/10/20 09:00 12/10/20 10:27 Pantoprazole 40 Mg Vial IVP 40 mg DAILY MIRE[facility]LE Administration Thiamine HCl 100 mg 12/07/20 09:00 12/10/20 10:22 Thiamine 100 Mg Tab PO Not Given DAILY MIRE[facility] Zinc Sulfate 220 mg 12/07/20 09:00 12/10/20 10:22 Zinc Sulfate 220 Mg Cap PO Not Given DAILY MIRE[place]LE - Exam General - other findings: Lethargic and somnolent. Neck: JVD Heart: murmur present Respiratory: rhonchi Respiratory - other findings: Moderate respiratory distress Gastrointestinal: soft, non-tender, non-distended Extremities: no cyanosis, no clubbing, no edema Psychiatric: somnolent Hosp A/P (1) COVID-19 virus infection Code(s): U07.1 - COVID-19 Status: Acute (2) Coronary artery disease Code(s): I25.10 - ATHSCL HEART DISEASE OF [place] CORONARY ARTERY W/O ANG PCTRS Status: Acute (3) Dementia Code(s): F03.90 - UNSPECIFIED DEMENTIA WITHOUT BEHAVIORAL DISTURBANCE Status: Acute (4) Dislocation of left thumb Code(s): S63.105A - UNSPECIFIED DISLOCATION OF LEFT THUMB, INITIAL ENCOUNTER Status: Acute (5) Infected bite wound of finger Code(s): S61.259A - OPEN BITE OF UNSP FINGER WITHOUT DAMAGE TO NAIL, INIT ENCNTR; L08.9 - LOCAL INFECTION OF THE SKIN AND SUBCUTANEOUS TISSUE, UNSP Status: Acute (6) Elevated troponin I level Code(s): R74.8 - ABNORMAL LEVELS OF OTHER SERUM ENZYMES Status: Acute - Plan Assessment Patient is a 75 year old male with a PMH of CAD s/p CABG, Alzheimer's dementia and COPD. He was brought in by EMS after activating the emergency service. Found to have dislocated L thumb on arrival, s/p ORIF and I&D on 12/07. Hypoxic on arrival, tested + for COVID 19. Hospital course complicated by acute decline in mental status and respiratory failure. He has been complaining of chest pain and shortness of breath. Cardiology was consulted due to rising troponins NSTEMI 0.4 troponin, acute Twi V3-V5 Having chest pain Currently on ASA, atorvastatin and PRN nitroglycerin Echo was ordered due to hx of CAD. I also consulted cardiology today Continue telemetry monitoring for now Acute hypoxemic respiratory failure Cardiac vs pulmonary due to worsening COVID 19 infection His cxr has no consolidation, only emphysematous changes PE has been rule dout Doing better on BiPAP at this time Patient given diuresis challenge due to ronchorous breath sounds this morning Will wean down as tolerated COVID 19 pna Day 3 of dexamethasone I will add remdesivir due to acute worsening of symptoms Continue multivitamins and zinc Delirium S/P haldol, poorly tolerated Will discontinue haldol Monitor QT QT prologation Medication-induced as evidenced by serial EKG Dislocated L thumb and infection POD#3 s/p ORIF and I&D, IOP showing polymicrobial infection and yeast He is currently on broad-spectrum antibiotics Im hesitant to start fluconazole due to high QT and torsade Continue MMP regimen and Lovenox for DVT prophylaxis Rib and shoulder pain Other x-ray ruled out fractures or injuries Occupational therapy and PT board rail manager has been consulted and we are contemplating SNF placement Dysphagia Passed swallow evaluation I will keep NPO for now due to AMS COPD Emphysematous changes as per CXR Not in acute exacerbation As needed albuterol sulfate inhaler on board Alzheimer's dementia Continue supportive care
[2020-12-10] MEDS: Furosemide 40 MG/4 ML VIAL SLOW IVP SCH (11:51)
[2020-12-10] MEDS ORDERED: REMDESIVIR (EUA) 200 MG in Sodium Chloride 0.9% 250 ML 210 ML IV SCH (12:15)
--- NOTE | 2020-12-10 14:21 | EKG ---
Test Reason : CP Blood Pressure : / mmHG Vent. Rate : 084 BPM Atrial Rate : 084 BPM P-R Int : 130 ms QRS Dur : 104 ms QT Int : 452 ms P-R-T Axes : 058 086 082 degrees QTc Int : 534 ms Normal sinus rhythm Prolonged QT Abnormal ECG Confirmed by KRYSTAL MIKE DO ([id number]), news videotape editor JIMMIE CHUNG ([id number]) on 12/10/2020 2:20:44 PM Referred By: Confirmed By:KRYSTAL MIKE DO
[2020-12-10 14:25] LABS: Troponin I 0.656 ng/mL (< 0.028)
[2020-12-10] MEDS: Vancomycin 1 GM in Premix Bag 1 BAG IVPB SCH (17:28)
[2020-12-10] MEDS ORDERED: Potassium Chloride 20 MEQ TAB PO SCH (17:30)
[2020-12-10] MEDS ORDERED: Magnesium Sulfate 3 GM in Sodium Chloride 0.9% 100 ML IVPB SCH (17:45)
--- NOTE | 2020-12-10 17:57 | CON ---
DATE OF CONSULTATION: CONSULTING PHYSICIAN: Hospitalist Group. REASON FOR CONSULTATION: COVID-19 pneumonia and acute respiratory failure requiring BiPAP. HISTORY OF PRESENT ILLNESS: This patient is a 75-year-old male who was admitted on 12/06/2020 with some shortness of breath. COVID test was positive. He was found to have a dislocation of his left thumb, which required operative therapy. Today, he decompensated to the point where he had to be placed on BiPAP. It was not really hypoxia as much as it was rapid respiratory rate. He is only requiring about 35% oxygen on a BiPAP. PAST MEDICAL HISTORY: Coronary artery disease. He has dementia. PAST SURGICAL HISTORY: Coronary artery bypass grafting surgery. FAMILY MEDICAL HISTORY: Unremarkable. SOCIAL HISTORY: Former smoker. Apparently does drink alcohol at home, but not sure how much. MEDICATIONS: Prior to admission: 1. Tamsulosin. 2. Potassium. 3. Vitamin C. 4. Protonix. 5. Toprol. 6. Mag oxide. 7. Iron complex. 8. Eliquis. 9. Pacerone. 10. Losartan. Current inpatient medications reviewed. See active medication section in chart. REVIEW OF SYSTEMS: Cannot be obtained as he is disoriented. PHYSICAL EXAMINATION: VITAL SIGNS: Temperature pulse 69, respirations 30, O2 saturation 98% on BiPAP 36%, blood pressure 126/69. HEENT: Unremarkable. NECK: No adenopathy or JVD. LUNGS: Fairly clear. CARDIAC: S1 and S2. Regular. ABDOMEN: Soft and nontender. EXTREMITIES: No edema. He has severe muscle wasting. LABORATORY DATA: White blood cell count 10.2, hematocrit 34.2, and platelet count 236. Sodium 145, potassium 3.5, chloride 111, CO2 of 23, BUN 18, creatinine 0.8, glucose 161. BNP was 3776. X-ray shows scant infiltrate, actually fairly clear x-ray for a COVID patient. ASSESSMENT: 1. COVID-19 pneumonia. 2. Encephalopathy/delirium, which is likely aggravated by use of the Haldol and Ativan. RECOMMENDATION: 1. Continue BiPAP as you are. 2. Judicious use of steroids. 3. Anticoagulation. 4. If he gets worse, I think the next step would be to put him on a Precedex drip, but that would necessitate transfer to the critical care unit. Thank you for the referral. Job ID: [id number]
[2020-12-10] MEDS: Nitroglycerin 2% Ointment 1 INCH/1 GM Packet TOP SCH (18:18)
--- NOTE | 2020-12-10 19:53 | CON ---
DATE OF CONSULTATION: 12/10/2020 REASON FOR CONSULTATION: [id number] myocardial infarction in a patient with COVID-19. HISTORY OF PRESENT ILLNESS: Mr. Kat is a 75-year-old gentleman admitted to the hospital with weakness and fatigue, found to have COVID. The patient has deteriorated since he has been here. Now, he is on BiPAP, is not responding, and is found to have a non-ST elevation infarction. The patient as mentioned is unresponsive. PAST HISTORY: He has had a history of coronary artery bypass grafting. Details not available. REVIEW OF SYSTEMS: Not available. He is not responsive. PHYSICAL EXAMINATION: VITAL SIGNS: Blood pressure 120/60, pulse 60. NECK: Veins are normal. Carotid, normal upstrokes. LUNGS: Somewhat distant breath sounds. I do not hear any wheezing. Does have some scattered rales. CARDIAC: Somewhat distant. I do not hear any murmur, rub, or gallop. ABDOMEN: Soft, nontender. EXTREMITIES: Warm, dry. No clubbing, cyanosis, or edema. PERTINENT LABORATORY DATA: Troponin is 0.65. Serology positive for COVID. EKG does show what looks like ischemia especially on the EKG on 10/13. There is QT prolongation with T-wave inversion. ASSESSMENT: 1. COVID infection. 2. Ischemic heart disease with probably diffuse ischemia based on EKG. 3. Unresponsive. PLAN: 1. Unable to take aspirin. He is unresponsive. 2. We will increase Lovenox. 3. Did take aspirin yesterday. 4. We will give him magnesium in view of the prolonged QT. 5. Add nitroglycerin paste. 6. Would consider code status if prognosis appears very poor in this unfortunate gentleman. Conservative medical therapy appears most appropriate in this gentleman. There is also history of dementia per the records, but as mentioned, he is unresponsive currently. Job ID: [id number]
[2020-12-10] MEDS: Atorvastatin Calcium 20 MG TAB PO SCH (21:08)
[2020-12-10] MEDS: Cholecalciferol 1,000 UNITS (25 MCG) TAB PO SCH (21:09)
[2020-12-10] MEDS: Losartan 25 MG TAB PO SCH (21:10)
[2020-12-10] MEDS: Enoxaparin Sodium 60 MG/0.6 ML SYRINGE SC SCH (22:02)
[2020-12-11] MEDS: Nitroglycerin 2% Ointment 1 INCH/1 GM Packet TOP SCH ×3 (01:49→17:25)
[2020-12-11] MEDS: Cefepime 1 GM in Sodium Chloride 0.9% 100 ML IVPB SCH ×2 (04:15→15:38)
[2020-12-11] MEDS: Vancomycin 1 GM in Premix Bag 1 BAG IVPB SCH ×2 (05:30→17:25)
[2020-12-11] MEDS: Lidocaine 5% Patch TD SCH (07:20)
[2020-12-11] MEDS: Enoxaparin Sodium 60 MG/0.6 ML SYRINGE SC SCH ×2 (07:20→21:12)
[2020-12-11] MEDS: Pantoprazole 40 MG VIAL IVP SCH (07:20)
[2020-12-11] MEDS: Dexamethasone 4 mg/ml Vial SLOW IVP SCH (07:20)
[2020-12-11 07:51] LABS: #Lymphocytes 0.4 thou/uL (1.20-3.40); #Monocytes 0.4 thou/uL (0.11-0.59); #Neutrophils 6.5 thou/uL (1.40-6.50); %Basophils 0.1 % (0.0-1.0); %Lymphocytes 5.9 % (21.0-51.0); %Monocytes 5.4 % (0.0-10.0); %Neutrophils 88.7 % (42.0-75.0); Hemoglobin 10.9 g/dL (14.0-18.0); Mean Corpuscular HGB CONC 30.5 g/dL (32.0-36.0); Mean Corpuscular Hemoglobin 27.3 pg (27.0-31.0); Mean Corpuscular Volume 89.5 fL (78.0-98.0); Mean Platelet Volume 11.5 fL (7.4-10.4); Platelet Count 191 thou/uL (130-400); RBC Distribution Width 18.2 % (11.5-14.5); Red Blood Cell (RBC) Count 3.98 mill/uL (4.70-6.10); White Blood Cell (WBC) Count 7.4 thou/uL (4.8-10.8)
[2020-12-11] MEDS: Aspirin 81 mg Enteric Coated Tablet PO SCH (09:28)
[2020-12-11] MEDS: Thiamine 100 MG TAB PO SCH (09:28)
[2020-12-11] MEDS: Ascorbic Acid 500 mg Chewable Tablet PO SCH (09:28)
[2020-12-11] MEDS: Zinc Sulfate 220 MG CAP PO SCH (09:28)
--- NOTE | 2020-12-11 11:29 | PDOC.HOSPP ---
- Subjective Encounter Date: 12/11/20 Subjective: Patient is doing significantly better. Calm, no agitation. His mental status is back to baseline, which is dementia. He is still - Objective Vital Signs & Weight: Vital Signs (12 hours) Temp Pulse Resp BP Pulse Ox 12/11/20 09:55 84 38 H 173/77 H 94 L 12/11/20 07:45 98.3 F 96 28 H 164/70 H 97 12/11/20 06:00 97.9 F 74 30 H 149/65 H 94 L 12/11/20 04:30 98 12/11/20 04:00 97.9 F 60 30 H 117/58 L 98 12/11/20 02:00 97.3 F L 56 L 24 H 96/50 L 100 12/11/20 01:33 59 L 100 12/11/20 00:00 97.9 F 60 20 115/56 L 100 Weight Admit Weight 134 lb 4.8 oz Weight 132 lb 8 oz I&O: 12/10/20 12/11/20 12/12/20 06:59 06:59 06:59 Intake Total 600 720 Output Total 600 1400 Balance 0 -680 Result Diagrams: 12/11/20 04:41 12/10/20 04:15 Hospitalist ROS - Medication Medications: Active Medications Generic Name Dose Route Start Last Admin Trade Name Freq PRN Reason Stop Dose Admin Acetaminophen 650 mg 12/06/20 16:48 12/07/20 08:21 Acetaminophen 325 Mg Tab PO 650 mg Q4H PRN Administration Headache/Fever/Mild Pain (1-3) Albuterol Sulfate 1 puff 12/10/20 04:20 12/10/20 04:34 Albuterol 200 Puff (6.7gm Inhaler) INH 1 puff Q4H PRN Administration SOB/WHEEZE Ascorbic Acid 1,000 mg 12/07/20 09:00 12/11/20 09:28 Ascorbic Acid 500 Mg Chewable Tablet PO 1,000 mg DAILY [place]RE[place] Administration Aspirin 81 mg 12/07/20 09:00 12/11/20 09:28 Aspirin 81 Mg Enteric Coated Tablet PO 81 mg DAILY [place] Administration Atorvastatin Calcium 20 mg 12/07/20 21:00 12/10/20 21:08 Atorvastatin Calcium 20 Mg Tab PO Not Given HS [facility] Cholecalciferol 1,000 units 12/06/20 21:00 12/10/20 21:09 Cholecalciferol 1,000 Units (25 Mcg) Tab PO Not Given HS [place]RE[place] Dexamethasone 6 mg 12/09/20 09:00 12/11/20 07:20 Dexamethasone 4 Mg/Ml Vial SLOW IVP 6 mg DAILY [place] Administration Enoxaparin Sodium 60 mg 12/10/20 21:00 12/11/20 07:20 Enoxaparin Sodium 60 Mg/0.6 Ml Syringe SC 60 mg 0900,2100 [place] Administration Furosemide 40 mg 12/10/20 12:00 12/10/20 11:51 Furosemide 40 Mg/4 Ml Vial SLOW IVP 40 mg 1200 [place] Administration Cefepime HCl 1 gm/ Sodium 100 mls @ 200 mls/hr 12/07/20 04:00 12/11/20 04:15 Chloride IVPB 100 mls 0400,1600 [facility] Administration Vancomycin HCl 1 gm/ Device 200 mls @ 200 mls/hr 12/10/20 17:00 12/11/20 05:30 IVPB 200 mls 0500,1700 [place] Administration Lidocaine 2 patch 12/07/20 09:00 12/11/20 07:20 Lidocaine 5% Patch TD 2 patch DAILY [place] Administration Losartan Potassium 25 mg 12/07/20 21:00 12/10/20 21:10 Losartan 25 Mg Tab PO Not Given HS [facility] Miscellaneous Medication 2 each 12/07/20 21:00 12/10/20 21:09 Lidocaine Patch Removal 1 Each TOP Not Given 2100 [facility] Nitroglycerin 1 inch 12/10/20 18:00 12/11/20 09:29 Nitroglycerin 2% Ointment 1 Inch/1 Gm Packet TOP 1 inch 0200,1000,1800 [place] Administration Pantoprazole Sodium 40 mg 12/10/20 09:00 12/11/20 07:20 Pantoprazole 40 Mg Vial IVP 40 mg DAILY [place] Administration Sodium Chloride 10 ml 12/09/20 20:00 12/11/20 07:21 Flush - Normal Saline 10 Ml Syringe IVF 10 ml PRN PRN Administration Saline Flush Thiamine HCl 100 mg 12/07/20 09:00 12/11/20 09:28 Thiamine 100 Mg Tab PO 100 mg DAILY [place] Administration Zinc Sulfate 220 mg 12/07/20 09:00 12/11/20 09:28 Zinc Sulfate 220 Mg Cap PO 220 mg DAILY [place]RE[place] Administration - Exam General - other findings: In mild respiratory distress ENT: normocephalic atraumatic Heart: RRR, murmur present Respiratory: no wheezes, rales Respiratory - other findings: Bilateral crackles Gastrointestinal: soft, non-tender, non-distended Extremities: no clubbing, no edema Psychiatric: normal affect, normal behavior Psychiatric - other findings: Dementia Hosp A/P (1) COVID-19 virus infection Code(s): U07.1 - COVID-19 Status: Acute (2) Coronary artery disease Code(s): I25.10 - ATHSCL HEART DISEASE OF [place] CORONARY ARTERY W/O ANG PCTRS Status: Acute (3) Dementia Code(s): F03.90 - UNSPECIFIED DEMENTIA WITHOUT BEHAVIORAL DISTURBANCE Status: Acute (4) Dislocation of left thumb Code(s): S63.105A - UNSPECIFIED DISLOCATION OF LEFT THUMB, INITIAL ENCOUNTER Status: Acute (5) Infected bite wound of finger Code(s): S61.259A - OPEN BITE OF UNSP FINGER WITHOUT DAMAGE TO NAIL, INIT ENCNTR; L08.9 - LOCAL INFECTION OF THE SKIN AND SUBCUTANEOUS TISSUE, UNSP Status: Acute (6) Elevated troponin I level Code(s): R74.8 - ABNORMAL LEVELS OF OTHER SERUM ENZYMES Status: Acute - Plan Assessment Patient is a 75 year old male with a PMH of CAD s/p CABG, Alzheimer's dementia and COPD. He was brought in by EMS after activating the emergency service. Found to have dislocated L thumb on arrival, s/p ORIF and I&D on 12/07. Hypoxic on arrival, tested + for COVID 19. Hospital course complicated by acute decline in mental status and respiratory failure. He has also been complaining of chest pain and shortness of breath shortly after receiving haldol injection for agitation. Cardiology was consulted. Acute QT prolongation on jasso bsequent EKGs, troponin rise (max 0.6). He received 3 g MagSO4. He is significantly better today NSTEMI with Hx of CAD s/p CABG 0.4 troponin, acute Twi V3-V5 Chest pain resolved for the most part Cardiology recommends medical therapy Currently on ASA, atorvastatin, metoprolol and PRN nitroglycerin Also on full dose lovenox Case management/Palliative care consulted for goals of care discussion QT prologation Medication-induced as evidenced by serial EKG Received 3 g of MagSO4 Repeat EKG pending Acute hypoxemic respiratory failure Cardiac vs pulmonary due to worsening COVID 19 infection His cxr has no consolidation, only emphysematous changes PE has been ruled out Successfully transitioned from BIPAP to nasal cannula Responded to diuresis challenge yesterday I will give another dose today, and recheck BNP Will wean down as tolerated COVID 19 pna Day 4 of dexamethasone Did not qualify for Remdesivir as per pharmacy I will continue multivitamins and zinc Trend CRP and D dimers Delirium Possibly haldol-induced Medication discontinued Monitor QT Dislocated L thumb and infection POD#4 s/p ORIF and I&D, IOP showing polymicrobial infection and yeast He is currently on broad-spectrum antibiotics Im hesitant to start fluconazole due to high QT and torsade ID consulted to recommend anti-fungal treatment Continue MMP regimen and Lovenox for DVT prophylaxis Rib and shoulder pain Other x-ray ruled out fractures or injuries Occupational therapy and PT board greenhouse manager has been consulted and we are contemplating SNF placement Dysphagia Passed swallow evaluation Resume diet as mental status improved COPD Emphysematous changes as per CXR Not in acute exacerbation As needed albuterol sulfate inhaler on board Alzheimer's dementia Continue supportive care
--- NOTE | 2020-12-11 11:59 | PRG ---
DATE OF SERVICE: 12/11/2020 SUBJECTIVE: Mr. Kat is much improved today. He is now responsive. He is still confused and disoriented, but is responsive. He is able to stand up at the bedside with the respiratory therapist. OBJECTIVE: VITAL SIGNS: Blood pressure is variable, earlier today it was 196/50, then most recently 160 systolic, pulse is in the 80s. LUNGS: Clear. CARDIAC: Normal S1, normal S2. ABDOMEN: Soft, nontender. EXTREMITIES: There is no edema. Reviewing the records, he is on apixaban and amiodarone indicating he likely has paroxysmal atrial fibrillation. He has also had previous bypass. The QT interval on the EKG has improved. ASSESSMENT: 1. COVID infection. 2. Prolonged QT, improved, probably related to ischemic heart disease. 3. History of paroxysmal atrial fibrillation based on the medicines he is on. PLAN: 1. Resume beta eddy. 2. Continue to give potassium and can intake oral potassium. 3. He got magnesium yesterday. 4. Resume amiodarone tomorrow. Job ID: [id number]
[2020-12-11] MEDS ORDERED: Potassium Chloride 20 MEQ TAB PO SCH (12:00)
[2020-12-11] MEDS ORDERED: Furosemide 20 MG/2 ML VIAL SLOW IVP SCH (12:15)
[2020-12-11] MEDS ORDERED: REMDESIVIR (EUA) 100 MG in Sodium Chloride 0.9% 250 ML 230 ML IV SCH (12:15)
[2020-12-11] MEDS: Furosemide 40 MG/4 ML VIAL SLOW IVP SCH (12:27)
--- NOTE | 2020-12-11 14:18 | PDOC.PALCO ---
Palliative Care Consult - Consult Details Requesting Physician: Dr Dickson Reason for Consult: goals of care, complex decision-making - Pertinent HPI 75 year old male with dementia who lives independently in an apartment setting. MPOA and friend who lives by and assists with ADL Maria Alejandra. In review of history it was noted he activated EMS secondary to shortness of breath, Maria Alejandra and her spouse are Covid + and have not been able to assist Mr Kat. Transported to [facility] for evaluation. Identified to be Covid + in the emergency room and admitted for further care and medical management. Surgery to left thumb wound, dressing currently intact. Increase in agitation was given Haldol. event of Bradycardia 12/10. Palliative care RN initiated contact with ISREAL Bess 12/10/2020. - Pertinent PMH CAD, CABG, Dementia - Social History Smoking Status: Former smoker Smoking: no tobacco exposure Alcohol Use: occasional Drug Use History: none Living Situation: independent - Medications MAR Reviewed: Yes - Allergies Allergies/Adverse Reactions: Allergies Allergy/AdvReac Type Severity Reaction Status Date / Time No Known Allergies Allergy Verified 12/06/20 20:14 - Subjective Ill appearing, confused. Verbal, but answers nonsensical. Weakness. Assist for ADL. Not a reliable source in review of systems - ROS Non Response: due to mental status - Objective Vital Signs: Vital Signs - Most Recent Temp Pulse Resp BP Pulse Ox 98.3 F 78 38 H 152/67 H 94 L 12/11/20 07:45 12/11/20 12:45 12/11/20 12:45 12/11/20 12:45 12/11/20 09:55 Palliative Performance Scale: 30 - Physical Exam Constitutional: cachectic, emaciated, ill appearing HEENT: EOMI, moist MMs, PERRLA, poor dentition Respiratory: diminished lung sound Deviation from normal: bilaterally adventicious Cardiovascular: RRR Gastrointestinal: soft, non-tender, incontinent Genitourinary: rodriguez catheter Musculoskeletal: no clubbing, diffuse muscle atrophy Neurology: no focal deficits Skin: fragile Deviation from normal: Dressing to left hand Psychiatric: normal mood - Problem List (1) Palliative care encounter Code(s): Z51.5 - ENCOUNTER FOR PALLIATIVE CARE Current Visit: Yes Status: Acute (2) COVID-19 virus infection Code(s): U07.1 - COVID-19 Current Visit: Yes Status: Acute (3) Coronary artery disease Code(s): I25.10 - ATHSCL HEART DISEASE OF [place] CORONARY ARTERY W/O ANG PCTRS Current Visit: Yes Status: Acute (4) Dementia Code(s): F03.90 - UNSPECIFIED DEMENTIA WITHOUT BEHAVIORAL DISTURBANCE Current Visit: Yes Status: Acute (5) Dislocation of left thumb Code(s): S63.105A - UNSPECIFIED DISLOCATION OF LEFT THUMB, INITIAL ENCOUNTER Current Visit: Yes Status: Acute - Plan/Recommendations Plan: Palliative care initiated contact with ISREAL Maria Alejandra De Dios [phone] Revisited resuscitation status and consideration for DNAR, will follow up 12/12/2020. Hope for patient to transition to skilled setting then return to home setting after 30 days. Discussed disease trajectory and potential of new baseline secondary to weakness, confusion, and currently total assist for ADL. Patient will need to be restraint free for 24 hours prior to transfer to skilled setting. Maria Alejandra relayed Patient is a [place]et and would "get lost at times". He has had 6 hospitalizations in the past year. Relayed history of COPD Will revisit Goal and resuscitation 12/12 [50] minutes spent on this encounter with >50% of the time in counseling and coordination of care. Thank you for this very appropriate consult.
--- NOTE | 2020-12-11 15:09 | PRG ---
DATE OF SERVICE: 12/11/2020 SUBJECTIVE: The patient is doing much better than yesterday. He has been weaned down to 2 L nasal cannula. OBJECTIVE: VITAL SIGNS: His O2 sats are about 94%, temperature 98.3, blood pressure 152/67. HEENT: Unremarkable. NECK: No adenopathy or JVD. CHEST: Clear. CARDIAC: S1 and S2. Regular. ABDOMEN: Soft. EXTREMITIES: No edema. ASSESSMENT: 1. COVID pneumonia. 2. Delirium. PLAN: Wean oxygen as tolerated. Continue anticoagulation and steroids. Job ID: [id number]
[2020-12-11 17:09] LABS: Vancomycin, Trough 23.6 ug/mL
[2020-12-11] MEDS ORDERED: Vancomycin 1 GM in Premix Bag 1 BAG IVPB SCH (18:00)
[2020-12-11] MEDS: Cholecalciferol 1,000 UNITS (25 MCG) TAB PO SCH (21:11)
[2020-12-11] MEDS: Losartan 25 MG TAB PO SCH (21:11)
[2020-12-11] MEDS: Lidocaine Patch Removal 1 EACH TOP SCH (21:12)
[2020-12-11] MEDS: Atorvastatin Calcium 20 MG TAB PO SCH (21:12)
--- NOTE | 2020-12-11 21:13 | CON ---
DATE OF CONSULTATION: 12/11/2020 REASON: Finger infection in the setting of COVID-19. 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 On arrival, his left thumb was injured. There was erythema in the exposed bone of uncertain duration. It could be for quite long time. He has some cognitive issues and could not be precise in the nature and duration of the event that led to this manifestation. Initial findings, his BP 140/60, temperature 98.8, and he was saturating 94 on room air, and on arrival, he was described as confused, answering to verbal stimuli, but in no distress. There was exposed joint of left thumb. Initial findings also demonstrated white cell count 3.7, hemoglobin 12.3, platelets 122 with 78% neutrophils. D-dimer 2.03. Chemistry, creatinine 0.91. CRP was 20.57. Albumin 3.4. SARS-CoV was detected on admission. PCR test positive. Imaging studies: On admission, there was a chest x-ray with emphysema, COPD, hyperinflation. Two days later, CTA was completed and it showed no pulmonary embolism and progression of bilateral interstitial scarring, right greater than left, but no acute inflammatory changes noted. Dr. Fuchs carried out surgical intervention on December 08, which consisted of neuroplasty of digital nerve, debridement of wound and material associated with open treatment of this location with pinning, chondroplasty and culture of the area. So basically, there was exposed metacarpal area, palmar aspect, dislocated, but no gross infection seen. No samples for pathology, but microbiology samples have been submitted and seems to be a polymicrobial beth as expected with anaerobes, gram-positive cocci, and yeast. Two different separate samples with yeast and gram-positive cocci in pairs and clusters. Currently, Mr. Kat is in bed. He is a bit confused. He is restrained in upper extremities. He has a Gamble catheter in place. Peripheral IV access. He knows his name, but he could not tell me where he was or the date. He has no diarrhea. Denied any abdominal pain. He complains of pain in the left lower extremity. The review of systems was hindered by his cognitive impairment. PAST MEDICAL HISTORY: Coronary artery disease, cognitive impairment of uncertain age, laminectomy, bypass graft surgery, one vessel. SOCIAL HISTORY: Lives by himself. Former smoker, quit less than 10 years ago. ALLERGIES: NONE. MEDICATIONS: Medication list, 1. Proventil. 2. Cordarone. 3. Lipitor. 4. Decadron. 5. Toprol. 6. Vancomycin. 7. Cefepime. PHYSICAL EXAMINATION: VITAL SIGNS: He has been afebrile since admission. Blood pressure 140/60, heart rate 79, respirations 23-38, saturating 98% on 2 L nasal cannula. SKIN: The left thumb dressing not removed. Has a peripheral IV access, Gamble catheter. HEENT: Ocular movements conjugate. Oral cavity with still quite a few teeth in place with desiccated enamel. Oral mucosa is somewhat dry. No jugular vein distention. LUNGS: With some scattered inspiratory crackles. HEART: S1, S2, regular rate. ABDOMEN: Not distended. No ascites. No bladder distention or organomegaly. No tenderness. EXTREMITIES: Pulses 1+ in dorsalis pedis. He is able to move extremities equally. Awake, knows his name, but could not tell me the location or date. It was hard to communicate with him. He does not recall much of his recent past history. LABORATORY DATA: Followup labs, white cell count is 7.4, hemoglobin 10.9, platelets 191, and creatinine is at 0.8, bilirubin 0.6, AST 60, ALT 54, alkaline phosphatase 117, albumin 3.2, globulin 3.4. Vancomycin trough 20.5. Last chest x-ray from December 09 with changes of COPD, well-expanded lungs without focal areas of consolidation. ASSESSMENT: 1. Coronary artery disease. 2. Cognitive dysfunction of uncertain age. 3. COVID-19 of uncertain age. 4. Chest x-ray with chronic findings, but no acute inflammatory process. 5. Fall with metacarpal left first toe exposure, status post surgical intervention with pin fixation and some other interventions, and now we have polymicrobial beth retrieved from the site including yeast. DISCUSSION: We will submit SARS-CoV-2 antibody to attempt to ascertain the age of this infection. At same time, he will need to continue protracted antimicrobial therapy and hopefully will be able to devise an oral regimen to replace the current regimen down the road. We do not know the nature of the yeast isolated, the Umu is more likely scenario. We will have to wait for the final identification. In the meantime, add Diflucan to regimen. Once we have the final identification of the organisms, we will switch to the definitive treatment, add Flagyl as well, or transition to Zosyn or meropenem in view of the anaerobes that were isolated at the site. Job ID: [id number]
[2020-12-11] MEDS: metroNIDAZOLE 500 MG in Premix Bag 1 BAG IVPB SCH (22:20)
[2020-12-12] MEDS: Nitroglycerin 2% Ointment 1 INCH/1 GM Packet TOP SCH ×3 (01:45→16:58)
[2020-12-12] MEDS: hydrALAZINE 20 MG/ML VIAL SLOW IVP PRN (04:18)
[2020-12-12] MEDS: metroNIDAZOLE 500 MG in Premix Bag 1 BAG IVPB SCH ×3 (05:08→20:20)
[2020-12-12] MEDS: Vancomycin HCl 750 MG in Sodium Chloride 0.9% 250 ML 250 ML IVPB SCH ×2 (05:59→16:57)
[2020-12-12] MEDS: Ascorbic Acid 500 mg Chewable Tablet PO SCH (08:09)
[2020-12-12] MEDS: Fluconazole In NaCl,Iso-Osm 400 MG in Premix Bag 1 BAG IVPB SCH ×2 (08:09→09:09)
[2020-12-12] MEDS: Aspirin 81 mg Enteric Coated Tablet PO SCH (08:09)
[2020-12-12] MEDS: Thiamine 100 MG TAB PO SCH (08:09)
[2020-12-12] MEDS: Lidocaine 5% Patch TD SCH (08:10)
[2020-12-12] MEDS: Zinc Sulfate 220 MG CAP PO SCH (08:10)
[2020-12-12] MEDS: Amiodarone 200 MG TAB PO SCH (08:10)
[2020-12-12] MEDS: Enoxaparin Sodium 60 MG/0.6 ML SYRINGE SC SCH ×2 (08:10→20:19)
[2020-12-12] MEDS: Pantoprazole 40 MG VIAL IVP SCH (08:10)
[2020-12-12] MEDS: Dexamethasone 4 mg/ml Vial SLOW IVP SCH (08:11)
[2020-12-12] MEDS ORDERED: Fluconazole 100 MG TAB PO SCH (10:30)
--- NOTE | 2020-12-12 11:23 | PDOC.PALPN ---
Palliative Progress Note - Subjective Flat affect, confused/remains poor historian. Remains restrained, no PRN medications required for agitation. Continues to require assist with meals/ADL's. Remains on Covid precautions. - Objective Vital Signs: Vital Signs - Most Recent Temp Pulse Resp BP Pulse Ox 98.6 F 81 31 H 139/63 92 L 12/12/20 10:31 12/12/20 10:31 12/12/20 10:31 12/12/20 10:31 12/12/20 10:31 - Physical Exam Constitutional: cachectic, ill appearing HEENT: moist MMs, poor dentition Respiratory: no wheezing, unlabored breathing, diminished lung sound Cardiovascular: RRR Gastrointestinal: soft, non-tender Genitourinary: rodriguez catheter Musculoskeletal: no cyanosis, no clubbing, no edema Skin: cap refill <2 seconds, fragile Deviation from normal: Dressing to wound to left hand Psychiatric: flat affect Deviation from normal: lethargic - Assessment (1) Palliative care encounter Code(s): Z51.5 - ENCOUNTER FOR PALLIATIVE CARE Current Visit: Yes Status: Acute (2) COVID-19 virus infection Code(s): U07.1 - COVID-19 Current Visit: Yes Status: Acute (3) Coronary artery disease Code(s): I25.10 - ATHSCL HEART DISEASE OF [place] CORONARY ARTERY W/O ANG PCTRS Current Visit: Yes Status: Acute (4) Dementia Code(s): F03.90 - UNSPECIFIED DEMENTIA WITHOUT BEHAVIORAL DISTURBANCE Current Visit: Yes Status: Acute (5) Dislocation of left thumb Code(s): S63.105A - UNSPECIFIED DISLOCATION OF LEFT THUMB, INITIAL ENCOUNTER Current Visit: Yes Status: Acute - Plan Plan: Patient assessed. Palliative care communicated with patient ISREAL Bess. Revisited resuscitation status and Goal of care. Emotional support offered. Hopeful for continued recovery and transition to skilled setting prior to transition to home. Introduced "Hope for the best and Plan for the worst" and to consider options if Mr Kta is not able to return to the home setting even after care at a skilled setting. Please also refer to Palliative Care notes in note section [30] minutes spent on this encounter with >50% of the time in counseling and coordination of care. - ROS Non Response: due to mental status
--- NOTE | 2020-12-12 12:10 | PDOC.HOSPP ---
- Subjective Encounter Date: 12/12/20 Subjective: Patient appears slightly more somnolent today. Review of medication over the past 24 hours revealed that he did not receive any sedating drugs. However he had a urine output of 3 L. We will hold diuresis for now. - Objective Vital Signs & Weight: Vital Signs (12 hours) Temp Pulse Resp BP Pulse Ox 12/12/20 10:31 98.6 F 81 31 H 139/63 92 L 12/12/20 08:45 99.9 F H 99 36 H 158/65 H 94 L 12/12/20 06:00 91 23 H 167/72 H 91 L 12/12/20 05:00 115 H 145/72 H 12/12/20 04:18 80 12/12/20 04:13 98.6 F 12/12/20 04:00 80 23 H 188/79 H 98 12/12/20 02:00 81 22 H 177/82 H 95 Weight Admit Weight 134 lb 4.8 oz Weight 125 lb 9.6 oz I&O: 12/11/20 12/12/20 12/13/20 06:59 06:59 06:59 Intake Total 720 1270 Output Total 1400 3425 Balance -680 -2155 Result Diagrams: 12/11/20 04:41 12/10/20 04:15 Hospitalist ROS - Medication Medications: Active Medications Generic Name Dose Route Start Last Admin Trade Name Freq PRN Reason Stop Dose Admin Acetaminophen 650 mg 12/06/20 16:48 12/07/20 08:21 Acetaminophen 325 Mg Tab PO 650 mg Q4H PRN Administration Headache/Fever/Mild Pain (1-3) Albuterol Sulfate 1 puff 12/10/20 04:20 12/10/20 04:34 Albuterol 200 Puff (6.7gm Inhaler) INH 1 puff Q4H PRN Administration SOB/WHEEZE Amiodarone HCl 200 mg 12/12/20 09:00 12/12/20 08:10 Amiodarone 200 Mg Tab PO 200 mg DAILY [place]RE[place] Administration Ascorbic Acid 1,000 mg 12/07/20 09:00 12/12/20 08:09 Ascorbic Acid 500 Mg Chewable Tablet PO 1,000 mg DAILY [place]RE[place] Administration Aspirin 81 mg 12/07/20 09:00 12/12/20 08:09 Aspirin 81 Mg Enteric Coated Tablet PO 81 mg DAILY [place] Administration Atorvastatin Calcium 20 mg 12/07/20 21:00 12/11/20 21:12 Atorvastatin Calcium 20 Mg Tab PO 20 mg HS [place] Administration Cholecalciferol 1,000 units 12/06/20 21:00 12/11/20 21:11 Cholecalciferol 1,000 Units (25 Mcg) Tab PO 1,000 units HS [place]RE[place] Administration Dexamethasone 6 mg 12/09/20 09:00 12/12/20 08:11 Dexamethasone 4 Mg/Ml Vial SLOW IVP 6 mg DAILY [place]RE[place]LE Administration Enoxaparin Sodium 60 mg 12/10/20 21:00 12/12/20 08:10 Enoxaparin Sodium 60 Mg/0.6 Ml Syringe SC 60 mg 0900,2100 [place] Administration Fluconazole 400 mg 12/12/20 10:30 12/12/20 10:30 Fluconazole 100 Mg Tab PO 12/12/20 13:00 400 mg NOW MIRE[place]LE Administration Furosemide 40 mg 12/10/20 12:00 12/11/20 12:27 Furosemide 40 Mg/4 Ml Vial SLOW IVP 40 mg 1200 [place] Administration Hydralazine HCl 10 mg 12/12/20 04:05 12/12/20 04:18 Hydralazine 20 Mg/Ml Vial SLOW IVP 10 mg Q4H PRN Administration SBP Greater Than 180 Metronidazole 500 mg/ Device 100 mls @ 100 mls/hr 12/11/20 22:00 12/12/20 05:08 IVPB 100 mls Q8HR [place] Administration Vancomycin HCl 750 mg/ Sodium 250 mls @ 250 mls/hr 12/12/20 05:00 12/12/20 05:59 Chloride IVPB 250 mls 0500,1700 [place] Administration Lidocaine 2 patch 12/07/20 09:00 12/12/20 08:10 Lidocaine 5% Patch TD 2 patch DAILY [place] Administration Losartan Potassium 25 mg 12/07/20 21:00 12/11/20 21:11 Losartan 25 Mg Tab PO 25 mg HS [facility] Administration Metoprolol Succinate 25 mg 12/12/20 09:00 12/12/20 08:10 Metoprolol Succinate Xl 25 Mg Tab PO 25 mg DAILY [place] Administration Miscellaneous Medication 2 each 12/07/20 21:00 12/11/20 21:12 Lidocaine Patch Removal 1 Each TOP Not Given 2100 [facility] Nitroglycerin 1 inch 12/10/20 18:00 12/12/20 10:31 Nitroglycerin 2% Ointment 1 Inch/1 Gm Packet TOP 1 inch 0200,1000,1800 [place] Administration Pantoprazole Sodium 40 mg 12/10/20 09:00 12/12/20 08:10 Pantoprazole 40 Mg Vial IVP 40 mg DAILY [place] Administration Sodium Chloride 10 ml 12/09/20 20:00 12/12/20 08:10 Flush - Normal Saline 10 Ml Syringe IVF 10 ml PRN PRN Administration Saline Flush Thiamine HCl 100 mg 12/07/20 09:00 12/12/20 08:09 Thiamine 100 Mg Tab PO 100 mg DAILY [place] Administration Zinc Sulfate 220 mg 12/07/20 09:00 12/12/20 08:10 Zinc Sulfate 220 Mg Cap PO 220 mg DAILY [place]RE[place] Administration - Exam General - other findings: Lethargic and less interactive Eye: anicteric sclera ENT: normocephalic atraumatic Heart: RRR, murmur present Respiratory: no wheezes, no ronchi Respiratory - other findings: Bilateral crackles Gastrointestinal: soft, non-tender, non-distended Extremities: no clubbing, no edema Psychiatric: lethargic Hosp A/P (1) COVID-19 virus infection Code(s): U07.1 - COVID-19 Status: Acute (2) Coronary artery disease Code(s): I25.10 - ATHSCL HEART DISEASE OF [place] CORONARY ARTERY W/O ANG PCTRS Status: Acute (3) Dementia Code(s): F03.90 - UNSPECIFIED DEMENTIA WITHOUT BEHAVIORAL DISTURBANCE Status: Acute (4) Dislocation of left thumb Code(s): S63.105A - UNSPECIFIED DISLOCATION OF LEFT THUMB, INITIAL ENCOUNTER Status: Acute (5) Infected bite wound of finger Code(s): S61.259A - OPEN BITE OF UNSP FINGER WITHOUT DAMAGE TO NAIL, INIT ENCNTR; L08.9 - LOCAL INFECTION OF THE SKIN AND SUBCUTANEOUS TISSUE, UNSP Status: Acute (6) Elevated troponin I level Code(s): R74.8 - ABNORMAL LEVELS OF OTHER SERUM ENZYMES Status: Acute - Plan Assessment Patient is a 75 year old male with a PMH of CAD s/p CABG, Alzheimer's dementia and COPD. He was brought in by EMS after activating the emergency service. Found to have dislocated L thumb on arrival, s/p ORIF and I&D on 12/07. Hypoxic on arrival, tested + for COVID 19. Hospital course complicated by acute decline in mental status and respiratory failure. He has also been complaining of chest pain and shortness of breath shortly after receiving haldol injection for agitation. Cardiology was consulted. Acute QT prolongation on subsequent EKGs, troponin rise (max 0.6). He received 3 g MagSO4. His mental status is fluctuating over the past 2 days. Infectious disease was consulted to help with the fungal infection yielded from his intraoperative wound cultures. Acute encephalopathy Believed to be medication induced Was previously on Haldol, which prolong this QT presentation Did better after receiving 3 g of mag sulfate as per cardiology recommendation I voiced my concern to ID regarding use of fluconazole and QT prolongation Other issues to consider include aggressive diuresis. Patient appears particularly lethargic today We will hold his Lasix, avoid chemical sedation, monitor on telemetry In case of agitation, I will proceed with restraints Fungal infection of hand Intraoperative wound culture yielded yeast ID has been consulted and recommend waiting for final speciation to determine if it candidal In the meantime ID recommended micafungin if there was concern for QT pr olongation with fluconazole NSTEMI with Hx of CAD s/p CABG Provoked Experienced chest pain shortly after haldol injections Morning jarrod to 0.65, acute Twi V3-V5 QT prolongation EKG Currently on medical therapy as per cardiology recommendation: Aspirin, atorvastatin, metoprolol and as needed nitroglycerin Is also on full dose anticoagulation Case management/Palliative care consulted for goals of care discussion Acute hypoxemic respiratory failure Cardiac vs pulmonary due to worsening COVID 19 infection His cxr has no consolidation, only emphysematous changes PE has been ruled out Successfully transitioned from BIPAP to nasal cannula Will wean down as tolerated COVID 19 pneumonia Day 5 of dexamethasone Did not qualify for Remdesivir as per pharmacy I will continue multivitamins and zinc CRP has trended down for the most part Continue supportive care Dislocated L thumb and infection POD#5 s/p ORIF and I&D, IOP showing polymicrobial infection and yeast He is currently on broad-spectrum antibiotics Im hesitant to start fluconazole due to high QT and torsade ID consulted to recommend anti-fungal treatment Continue MMP regimen and Lovenox for DVT prophylaxis Rib and shoulder pain Other x-ray ruled out fractures or injuries 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
[2020-12-12] MEDS: Furosemide 40 MG/4 ML VIAL SLOW IVP SCH (13:14)
--- NOTE | 2020-12-12 13:39 | EKG ---
Test Reason : Blood Pressure : / mmHG Vent. Rate : 092 BPM Atrial Rate : 092 BPM P-R Int : 284 ms QRS Dur : 096 ms QT Int : 502 ms P-R-T Axes : 000 076 107 degrees QTc Int : 620 ms Sinus rhythm Non-specific intra-ventricular conduction delay Moderate voltage criteria for LVH, may be normal variant Prolonged QT Nonspecific ST and T wave abnormality Abnormal ECG Confirmed by AYO ROSAS ([id number]) on 12/12/2020 1:39:00 PM Referred By: MERI Confirmed By:AYO ROSAS
[2020-12-12] MEDS ORDERED: Potassium Chloride 20 MEQ TAB PO SCH (14:00)
--- NOTE | 2020-12-12 14:04 | PRG ---
DATE OF SERVICE: 12/12/2020 SUBJECTIVE: Mr. Kat is confused and disoriented, but he is sleeping when I went in the room, but he wakes up easily. OBJECTIVE: VITAL SIGNS: His blood pressure 129/60, pulse 70. LUNGS: Clear. CARDIAC: Normal S1, normal S2. I do not hear murmur, rub, or gallop. The QT interval is down to 0.42 on the finished goods inspector. ASSESSMENT: 1. Prolonged QT, improved, possibly related to ischemic heart disease. 2. Positive for COVID infection. PLAN: 1. He is on amiodarone. He was on that as an outpatient. 2. Aspirin. 3. Statin. 4. We will reduce enoxaparin dose. 5. We will give additional potassium today. Check basic metabolic tomorrow. Otherwise, I will sign off. Job ID: [id number]
[2020-12-12 14:50] VITALS: BMI 17.0
[2020-12-12 17:49] LABS: SARS-CoV-2 IgG Ab Reactive (NonReactive); SARS-CoV-2 IgG Index 1.42 S/CO (< 1.40)
[2020-12-12] MEDS: Cholecalciferol 1,000 UNITS (25 MCG) TAB PO SCH (20:19)
[2020-12-12] MEDS: Atorvastatin Calcium 20 MG TAB PO SCH (20:19)
[2020-12-12] MEDS: Lidocaine Patch Removal 1 EACH TOP SCH (20:20)
[2020-12-12] MEDS: Losartan 25 MG TAB PO SCH (20:20)
[2020-12-13] MEDS: Nitroglycerin 2% Ointment 1 INCH/1 GM Packet TOP SCH ×3 (02:02→18:00)
[2020-12-13] MEDS: Vancomycin HCl 750 MG in Sodium Chloride 0.9% 250 ML 250 ML IVPB SCH ×3 (05:28→21:35)
[2020-12-13 05:48] LABS: Anion Gap 15 mmol/L (10-20); BUN (Urea Nitrogen) 28 mg/dL (8.4-25.7); Calc. Creatinine Clearance 62 mL/min (70-130); Calcium 8.4 mg/dL (7.8-10.44); Carbon Dioxide 34 mmol/L (23-31); Glucose 141 mg/dL (83-110); Potassium 3.1 mmol/L (3.5-5.1)
[2020-12-13 06:04] LABS: Chloride 111 mmol/L (98-107); Sodium 157 mmol/L (136-145)
[2020-12-13] MEDS: metroNIDAZOLE 500 MG in Premix Bag 1 BAG IVPB SCH ×3 (06:30→20:37)
[2020-12-13] MEDS ORDERED: Sodium Chloride 0.9% 500 ML IV SCH (07:45)
[2020-12-13] MEDS ORDERED: Potassium Chloride 20 MEQ TAB PO SCH (07:45)
[2020-12-13] MEDS ORDERED: Dextrose 5 %-0.45 % NaCl 1,000 ML IV SCH (07:45)
[2020-12-13] MEDS ORDERED: Fluconazole 100 MG TAB PO SCH (09:00)
[2020-12-13 09:01] LABS: Anion Gap 18 mmol/L (10-20); BUN (Urea Nitrogen) 28 mg/dL (8.4-25.7); Calc. Creatinine Clearance 65 mL/min (70-130); Calcium 8.1 mg/dL (7.8-10.44); Carbon Dioxide 30 mmol/L (23-31); Chloride 114 mmol/L (98-107); Glucose 126 mg/dL (83-110); Potassium 3.2 mmol/L (3.5-5.1); Sodium 159 mmol/L (136-145)
[2020-12-13] MEDS: Dexamethasone 4 mg/ml Vial SLOW IVP SCH (10:35)
[2020-12-13] MEDS: Enoxaparin Sodium 60 MG/0.6 ML SYRINGE SC SCH (10:35)
[2020-12-13] MEDS: Dextrose 5 %-0.45 % NaCl 1,000 ML IV SCH (10:35)
[2020-12-13] MEDS: Pantoprazole 40 MG VIAL IVP SCH (10:37)
[2020-12-13] MEDS: Ascorbic Acid 500 mg Chewable Tablet PO SCH (10:39)
[2020-12-13] MEDS: Aspirin 81 mg Enteric Coated Tablet PO SCH (10:40)
[2020-12-13] MEDS: Zinc Sulfate 220 MG CAP PO SCH (10:40)
[2020-12-13] MEDS: Amiodarone 200 MG TAB PO SCH (10:40)
[2020-12-13] MEDS: Thiamine 100 MG TAB PO SCH (10:40)
[2020-12-13] MEDS: Lidocaine 5% Patch TD SCH (10:41)
--- NOTE | 2020-12-13 11:22 | PDOC.HOSPP ---
- Subjective Encounter Date: 12/13/20 Subjective: Patient's mental status is slowly picking up. Although lethargic, he can still open his eyes and answer questions appropriately. Found to have severe hypernatremia with a sodium of 157 - Objective Vital Signs & Weight: Vital Signs (12 hours) Temp Pulse Resp BP BP BP Pulse Ox 12/13/20 08:00 98.1 F 67 23 H 171/75 H 95 12/13/20 07:46 93 L 12/13/20 06:00 71 170/75 H 12/13/20 04:00 98.2 F 70 26 H 170/77 H 93 L 12/13/20 02:00 71 31 H 158/70 H 98 12/13/20 00:00 96.9 F L 69 37 H 182/81 H 91 L Weight Admit Weight 134 lb 4.8 oz Weight 125 lb 9.6 oz I&O: 12/12/20 12/13/20 12/14/20 06:59 06:59 06:59 Intake Total 1270 1250 Output Total 3425 925 Balance -2155 325 Result Diagrams: 12/11/20 04:41 12/13/20 08:36 Additional Labs: Accuchecks 12/12/20 22:28 POC Glucose 270 H Hospitalist ROS - Medication Medications: Active Medications Generic Name Dose Route Start Last Admin Trade Name Freq PRN Reason Stop Dose Admin Acetaminophen 650 mg 12/06/20 16:48 12/07/20 08:21 Acetaminophen 325 Mg Tab PO 650 mg Q4H PRN Administration Headache/Fever/Mild Pain (1-3) Albuterol Sulfate 1 puff 12/10/20 04:20 12/10/20 04:34 Albuterol 200 Puff (6.7gm Inhaler) INH 1 puff Q4H PRN Administration SOB/WHEEZE Amiodarone HCl 200 mg 12/12/20 09:00 12/12/20 08:10 Amiodarone 200 Mg Tab PO 200 mg DAILY [place]RE[place] Administration Ascorbic Acid 1,000 mg 12/07/20 09:00 12/12/20 08:09 Ascorbic Acid 500 Mg Chewable Tablet PO 1,000 mg DAILY [place] Administration Aspirin 81 mg 12/07/20 09:00 12/12/20 08:09 Aspirin 81 Mg Enteric Coated Tablet PO 81 mg DAILY [place] Administration Atorvastatin Calcium 20 mg 12/07/20:00 12/12/20 20:19 Atorvastatin Calcium 20 Mg Tab PO 20 mg HS [place] Administration Cholecalciferol 1,000 units 12/06/20 21:00 12/12/20 20:19 Cholecalciferol 1,000 Units (25 Mcg) Tab PO 1,000 units HS [place] Administration Dexamethasone 6 mg 12/09/20 09:00 12/12/20 08:11 Dexamethasone 4 Mg/Ml Vial SLOW IVP 6 mg DAILY [place] Administration Hydralazine HCl 10 mg 12/12/20 04:05 12/12/20 04:18 Hydralazine 20 Mg/Ml Vial SLOW IVP 10 mg Q4H PRN Administration SBP Greater Than 180 Metronidazole 500 mg/ Device 100 mls @ 100 mls/hr 12/11/20 22:00 12/13/20 06:30 IVPB 100 mls Q8HR [place] Administration Vancomycin HCl 750 mg/ Sodium 250 mls @ 250 mls/hr 12/12/20 05:00 12/13/20 05:28 Chloride IVPB 250 mls 0500,1700 [place] Administration Lidocaine 2 patch 12/07/20 09:00 12/12/20 08:10 Lidocaine 5% Patch TD 2 patch DAILY [place] Administration Losartan Potassium 25 mg 12/07/20 21:00 12/12/20 20:20 Losartan 25 Mg Tab PO 25 mg HS [place] Administration Miscellaneous Medication 2 each 12/07/20 21:00 12/12/20 20:20 Lidocaine Patch Removal 1 Each TOP 2 each 2100 [place] Administration Nitroglycerin 1 inch 12/10/20 18:00 12/13/20 02:02 Nitroglycerin 2% Ointment 1 Inch/1 Gm Packet TOP 1 inch 0200,1000,1800 [place] Administration Pantoprazole Sodium 40 mg 12/10/20 09:00 12/12/20 08:10 Pantoprazole 40 Mg Vial IVP 40 mg DAILY [place] Administration Sodium Chloride 10 ml 12/09/20 20:00 12/13/20 05:28 Flush - Normal Saline 10 Ml Syringe IVF 10 ml PRN PRN Administration Saline Flush Thiamine HCl 100 mg 12/07/20 09:00 12/12/20 08:09 Thiamine 100 Mg Tab PO 100 mg DAILY [place] Administration Zinc Sulfate 220 mg 12/07/20 09:00 12/12/20 08:10 Zinc Sulfate 220 Mg Cap PO 220 mg DAILY [place] Administration - Exam General - other findings: Lethargic ENT: normocephalic atraumatic Heart: RRR, murmur present Respiratory: no wheezes, no ronchi Respiratory - other findings: Mild bilateral crackles Gastrointestinal: non-tender, non-distended Gastrointestinal - other findings: Scaphoid abdomen Extremities: no clubbing, no edema Psychiatric: lethargic Hosp A/P (1) COVID-19 virus infection Code(s): U07.1 - COVID-19 Status: Acute (2) Coronary artery disease Code(s): I25.10 - ATHSCL HEART DISEASE OF [place] CORONARY ARTERY W/O ANG PCTRS Status: Acute (3) Dementia Code(s): F03.90 - UNSPECIFIED DEMENTIA WITHOUT BEHAVIORAL DISTURBANCE Status: Acute (4) Dislocation of left thumb Code(s): S63.105A - UNSPECIFIED DISLOCATION OF LEFT THUMB, INITIAL ENCOUNTER Status: Acute (5) Infected bite wound of finger Code(s): S61.259A - OPEN BITE OF UNSP FINGER WITHOUT DAMAGE TO NAIL, INIT ENCNTR; L08.9 - LOCAL INFECTION OF THE SKIN AND SUBCUTANEOUS TISSUE, UNSP Status: Acute (6) Elevated troponin I level Code(s): R74.8 - ABNORMAL LEVELS OF OTHER SERUM ENZYMES Status: Acute - Plan Assessment Patient is a 75 year old male with a PMH of CAD s/p CABG, Alzheimer's dementia and COPD. He was brought in by EMS after activating the emergency service. Found to have dislocated L thumb on arrival, s/p ORIF and I&D on 12/07 wound culture yielding yeast. Patient was also hypoxic on arrival, tested + for COVID 19. His hospital course complicated by acute decline in mental status and respiratory failure. He was given Haldol and developed worsened mental status and QT prolongation, T wave inversions and NSTEMI with maximum troponin of 0.65. I consulted cardiology as he was having chest pain and shortness of breath. Medical management was recommended. He also received 3 g of magnesium sulfate. The last 2 days patient has been slightly lethargic. He was found to have a sodium of 157 and is currently on volume repletion. Overall, patient is not appropriate to go back home when medically cleared. I have consulted the case management to help me with placement. Acute encephalopathy Metabolic encephalopathy due to hypernatremia, and Haldol-induced Taken off Haldol, avoid QT prolonging drugs Manage hypernatremia I will avoid medications such as benzodiazepines and antipsychotics for agitation since he is responding poorly to dose I voiced my concern to ID regarding use of fluconazole and QT prolongation Acute hypernatremia Bolus challenged with NS today Also started on free water replacement and D5 half NS for hypernatremia Monitor BMP every 4 hours Fungal infection of hand Intraoperative wound culture yielded yeast ID has been consulted and recommend waiting for final speciation to determine if it candidal infection In the meantime ID recommended micafungin if there was concern for QT prolongation with fluconazole NSTEMI with Hx of CAD s/p CABG Experienced chest pain shortly after haldol injections Morning jarrod to 0.65, acute Twi V3-V5 QT prolongation EKG Currently on medical therapy as per cardiology recommendation: Aspirin, atorvastatin, metoprolol and as needed nitroglycerin Also on anticoagulation Case management/Palliative care consulted for goals of care discussion Acute hypoxemic respiratory failure Cardiac vs pulmonary due to worsening COVID 19 infection His cxr has no consolidation, only emphysematous changes PE has been ruled out Successfully transitioned from BIPAP to nasal cannula Will wean down as tolerated COVID 19 pneumonia Day 6 of dexamethasone Did not qualify for Remdesivir as per pharmacy I will continue multivitamins and zinc CRP has trended down for the most part Continue supportive care Dislocated L thumb and infection POD#6 s/p ORIF and I&D, IOP showing polymicrobial infection and yeast He is currently on broad-spectrum antibiotics Infectious disease has been consulted for antibiotics Continue MMP regimen and Lovenox for DVT prophylaxis Rib and shoulder pain Other x-ray ruled out fractures or injuries Occupational therapy and PT board customer acquisition manager has been consulted and we are contemplating SNF placement Dysphagia Passed swallow evaluation Resume diet as mental status improved COPD Emphysematous changes as per CXR Not in acute exacerbation As needed albuterol sulfate inhaler on board Alzheimer's dementia Continue supportive care
--- NOTE | 2020-12-13 15:11 | PDOC.PALPN ---
Palliative Progress Note - Subjective Continues with confusion, more verbal today. Continues to require loose restraints secondary to unable to understand need for IV/RODRIGUEZ/Dressing to surgical hand and poses safety risk. Appetite remains poor, eating less that 50% requiring assistance. Remains incontinent and total max assist for ADL. Hypernatremia, BP medications altered by Hospitalist secondary to labile BP. Not a reliable source for review of systems. No complaints expressed. - Objective Vital Signs: Vital Signs - Most Recent Temp Pulse Resp BP Pulse Ox 97.7 F 64 26 H 152/69 H 97 12/13/20 14:00 12/13/20 14:00 12/13/20 14:00 12/13/20 14:00 12/13/20 14:00 - Physical Exam Constitutional: cachectic, ill appearing HEENT: EOMI, moist MMs, sclera anicteric Respiratory: no wheezing, unlabored breathing, diminished lung sound Cardiovascular: no significant murmur, RRR Gastrointestinal: soft, non-tender Genitourinary: rodriguez catheter Musculoskeletal: no cyanosis, no clubbing, diffuse muscle atrophy Skin: cap refill <2 seconds, fragile Deviation from normal: Dressing over left hand Deviation from normal: Unable to fully appreciate orientation - Assessment (1) Palliative care encounter Code(s): Z51.5 - ENCOUNTER FOR PALLIATIVE CARE Current Visit: Yes Status: Acute (2) COVID-19 virus infection Code(s): U07.1 - COVID-19 Current Visit: Yes Status: Acute (3) Coronary artery disease Code(s): I25.10 - ATHSCL HEART DISEASE OF [place] CORONARY ARTERY W/O ANG PCTRS Current Visit: Yes Status: Acute (4) Dementia Code(s): F03.90 - UNSPECIFIED DEMENTIA WITHOUT BEHAVIORAL DISTURBANCE Current Visit: Yes Status: Acute (5) Dislocation of left thumb Code(s): S63.105A - UNSPECIFIED DISLOCATION OF LEFT THUMB, INITIAL ENCOUNTER Current Visit: Yes Status: Acute - Plan Plan: Maria Alejandra patient surrogate decision maker is electing to remain with full resuscitation measures. However, if he declines would like to revisit. Goal: Full resuscitation and aggressive therapies currently to attempt to return to prior baseline. Hope to transition to skilled setting for continued rehab/strength. Discussed to consider alternate plan if patient does not return to prior baseline and continues to require total assist for all ADL Emotional support and Therapeutic listening offered. Palliative care will sign off at this time. If we can assist in the future to readdress patient Goal of Care, complex decision making, prognosis disease assist secondary to patient change in status please re consult our team. Thank you for this very appropriate consult, it has been our pleasure to participate in the care of Mr Kat. Please also refer to Palliative Care notes in note section. [30] minutes spent on this encounter with >50% of the time in counseling and coordination of care. - ROS Non Response: due to mental status
[2020-12-13 19:23] LABS: Anion Gap 16 mmol/L (10-20); BUN (Urea Nitrogen) 25 mg/dL (8.4-25.7); Calc. Creatinine Clearance 62 mL/min (70-130); Carbon Dioxide 26 mmol/L (23-31); Chloride 115 mmol/L (98-107); Glucose 255 mg/dL (83-110); Potassium 3.7 mmol/L (3.5-5.1); Sodium 153 mmol/L (136-145)
[2020-12-13 19:54] LABS: Vancomycin, Trough 14.5 ug/mL
[2020-12-13] MEDS: Losartan 25 MG TAB PO SCH (20:37)
[2020-12-13] MEDS: Cholecalciferol 1,000 UNITS (25 MCG) TAB PO SCH (20:37)
[2020-12-13] MEDS: Atorvastatin Calcium 20 MG TAB PO SCH (20:37)
[2020-12-13] MEDS: Lidocaine Patch Removal 1 EACH TOP SCH (21:42)
[2020-12-13 22:29] LABS: Anion Gap 12 mmol/L (10-20); BUN (Urea Nitrogen) 24 mg/dL (8.4-25.7); Calc. Creatinine Clearance 65 mL/min (70-130); Carbon Dioxide 26 mmol/L (23-31); Chloride 115 mmol/L (98-107); Glucose 244 mg/dL (83-110); Potassium 3.6 mmol/L (3.5-5.1); Sodium 149 mmol/L (136-145)
[2020-12-14] MEDS: Dextrose 5 %-0.45 % NaCl 1,000 ML IV SCH ×3 (01:01→23:13)
[2020-12-14 01:31] LABS: Anion Gap 15 mmol/L (10-20); BUN (Urea Nitrogen) 24 mg/dL (8.4-25.7); Calc. Creatinine Clearance 67 mL/min (70-130); Calcium 7.9 mg/dL (7.8-10.44); Carbon Dioxide 23 mmol/L (23-31); Chloride 117 mmol/L (98-107); Glucose 191 mg/dL (83-110); Potassium 3.6 mmol/L (3.5-5.1); Sodium 151 mmol/L (136-145)
[2020-12-14] MEDS: Nitroglycerin 2% Ointment 1 INCH/1 GM Packet TOP SCH ×3 (02:10→17:53)
[2020-12-14 05:42] LABS: Anion Gap 12 mmol/L (10-20); BUN (Urea Nitrogen) 22 mg/dL (8.4-25.7); Calc. Creatinine Clearance 67 mL/min (70-130); Calcium 8.1 mg/dL (7.8-10.44); Carbon Dioxide 28 mmol/L (23-31); Chloride 113 mmol/L (98-107); Glucose 184 mg/dL (83-110); Potassium 3.4 mmol/L (3.5-5.1); Sodium 150 mmol/L (136-145)
[2020-12-14] MEDS: metroNIDAZOLE 500 MG in Premix Bag 1 BAG IVPB SCH ×3 (06:00→22:05)
[2020-12-14] MEDS: Aspirin 81 mg Enteric Coated Tablet PO SCH ×3 (08:48→10:56)
[2020-12-14] MEDS: Ascorbic Acid 500 mg Chewable Tablet PO SCH ×3 (08:48→10:18)
[2020-12-14] MEDS: Amiodarone 200 MG TAB PO SCH ×3 (08:48→10:56)
[2020-12-14] MEDS: Lidocaine 5% Patch TD SCH (08:50)
[2020-12-14] MEDS: Dexamethasone 4 mg/ml Vial SLOW IVP SCH (08:50)
[2020-12-14] MEDS: Enoxaparin Sodium 60 MG/0.6 ML SYRINGE SC SCH (08:50)
[2020-12-14] MEDS: Zinc Sulfate 220 MG CAP PO SCH ×3 (08:52→10:19)
[2020-12-14] MEDS: Pantoprazole 40 MG VIAL IVP SCH (08:52)
[2020-12-14] MEDS: Thiamine 100 MG TAB PO SCH ×3 (08:52→10:19)
[2020-12-14] MEDS: Vancomycin HCl 750 MG in Sodium Chloride 0.9% 250 ML 250 ML IVPB SCH ×2 (09:00→20:39)
[2020-12-14] MEDS: Potassium Chloride 20 MEQ TAB PO SCH ×2 (09:41→10:56)
[2020-12-14 11:09] LABS: Anion Gap 15 mmol/L (10-20); BUN (Urea Nitrogen) 20 mg/dL (8.4-25.7); Calc. Creatinine Clearance 67 mL/min (70-130); Carbon Dioxide 25 mmol/L (23-31); Chloride 114 mmol/L (98-107); Glucose 128 mg/dL (83-110); Potassium 3.7 mmol/L (3.5-5.1); Sodium 150 mmol/L (136-145)
[2020-12-14 14:25] LABS: Anion Gap 14 mmol/L (10-20); BUN (Urea Nitrogen) 21 mg/dL (8.4-25.7); Calc. Creatinine Clearance 65 mL/min (70-130); Calcium 7.9 mg/dL (7.8-10.44); Carbon Dioxide 23 mmol/L (23-31); Chloride 115 mmol/L (98-107); Glucose 200 mg/dL (83-110); Potassium 4.3 mmol/L (3.5-5.1); Sodium 148 mmol/L (136-145)
--- NOTE | 2020-12-14 18:08 | PDOC.HOSPP ---
- Subjective Encounter Date: 12/14/20 Encounter Time: 10:00 Subjective: pt up in bed confused - Objective Vital Signs & Weight: Vital Signs (12 hours) Temp Pulse Resp BP Pulse Ox 12/14/20 16:00 97.5 F L 66 20 179/76 H 99 12/14/20 14:41 97.7 F 68 20 163/74 H 98 12/14/20 12:10 97.6 F 64 20 153/72 H 100 12/14/20 09:48 97.8 F 69 20 165/70 H 95 12/14/20 07:50 96 12/14/20 07:45 97.4 F L 69 20 169/74 H 96 12/14/20 07:02 95 Weight Admit Weight 134 lb 4.8 oz Weight 125 lb 9.6 oz I&O: 12/13/20 12/14/20 12/15/20 06:59 06:59 06:59 Intake Total 1250 3942.5 100 Output Total 925 955 200 Balance 325 2987.5 -100 Result Diagrams: 12/11/20 04:41 12/14/20 14:02 Additional Labs: Accuchecks 12/13/20 20:06 POC Glucose 346 H Hospitalist ROS - Review of Systems Other: Patient confused in restraints - Medication Medications: Active Medications Generic Name Dose Route Start Last Admin Trade Name Freq PRN Reason Stop Dose Admin Acetaminophen 650 mg 12/06/20 16:48 12/07/20 08:21 Acetaminophen 325 Mg Tab PO 650 mg Q4H PRN Administration Headache/Fever/Mild Pain (1-3) Albuterol Sulfate 1 puff 12/10/20 04:20 12/10/20 04:34 Albuterol 200 Puff (6.7gm Inhaler) INH 1 puff Q4H PRN Administration SOB/WHEEZE Amiodarone HCl 200 mg 12/12/20 09:00 12/14/20 10:56 Amiodarone 200 Mg Tab PO 200 mg DAILY [place] Administration Ascorbic Acid 1,000 mg 12/07/20 09:00 12/14/20 10:18 Ascorbic Acid 500 Mg Chewable Tablet PO Not Given DAILY [place] Aspirin 81 mg 12/07/20 09:00 12/14/20 10:56 Aspirin 81 Mg Enteric Coated Tablet PO 81 mg DAILY [place] Administration Atorvastatin Calcium 20 mg 12/07/20 21:00 12/13/20 20:37 Atorvastatin Calcium 20 Mg Tab PO 20 mg HS [place] Administration Cholecalciferol 1,000 units 12/06/20 21:00 12/13/20 20:37 Cholecalciferol 1,000 Units (25 Mcg) Tab PO 1,000 units HS [place] Administration Dexamethasone 6 mg 12/09/20 09:00 12/14/20 08:50 Dexamethasone 4 Mg/Ml Vial SLOW IVP 6 mg DAILY [place] Administration Enoxaparin Sodium 60 mg 12/13/20 09:00 12/14/20 08:50 Enoxaparin Sodium 60 Mg/0.6 Ml Syringe SC 60 mg DAILY [place] Administration Hydralazine HCl 10 mg 12/12/20 04:05 12/12/20 04:18 Hydralazine 20 Mg/Ml Vial SLOW IVP 10 mg Q4H PRN Administration SBP Greater Than 180 Metronidazole 500 mg/ Device 100 mls @ 100 mls/hr 12/11/20 22:00 12/14/20 13:55 IVPB 100 mls Q8HR [place] Administration Dextrose/Sodium Chloride 1,000 mls @ 100 mls/hr 12/13/20 07:45 12/14/20 12:03 D5 1/2 Ns IV 1,000 mls .Q10H [place] Administration Vancomycin HCl 750 mg/ Sodium 250 mls @ 250 mls/hr 12/13/20 21:00 12/14/20 09:00 Chloride IVPB 250 mls 0900,2100 [place] Administration Lidocaine 2 patch 12/07/20 09:00 12/14/20 08:50 Lidocaine 5% Patch TD 2 patch DAILY [place] Administration Losartan Potassium 25 mg 12/07/20 21:00 12/13/20 20:37 Losartan 25 Mg Tab PO 25 mg HS [place] Administration Metoprolol Succinate 50 mg 12/13/20 09:00 12/14/20 10:56 Metoprolol Succinate Xl 50 Mg Tab PO 50 mg DAILY [place] Administration Miscellaneous Medication 2 each 12/07/20 21:00 12/13/20 21:42 Lidocaine Patch Removal 1 Each TOP 2 each 2100 [place] Administration Nitroglycerin 1 inch 12/10/20 18:00 12/14/20 17:53 Nitroglycerin 2% Ointment 1 Inch/1 Gm Packet TOP 1 inch 0200,1000,1800 [place] Administration Pantoprazole Sodium 40 mg 12/10/20 09:00 12/14/20 08:52 Pantoprazole 40 Mg Vial IVP 40 mg DAILY [place] Administration Sodium Chloride 10 ml 12/09/20 20:00 12/13/20 21:36 Flush - Normal Saline 10 Ml Syringe IVF 10 ml PRN PRN Administration Saline Flush Thiamine HCl 100 mg 12/07/20 09:00 12/14/20 10:19 Thiamine 100 Mg Tab PO Not Given DAILY [place] Zinc Sulfate 220 mg 12/07/20 09:00 12/14/20 10:19 Zinc Sulfate 220 Mg Cap PO Not Given DAILY [place] - Exam Neck: negative: supple, symmetric, no JVD, no thyromegaly, no lymphadenopathy, no carotid bruit, JVD Heart: negative: RRR, no murmur, no gallops, no rubs, normal peripheral pulses, irregular, diminshed peripheral pulses, murmur present, II/IV, III/IV Respiratory: negative: CTAB, no wheezes, no rales, no ronchi, normal chest expansion, no tachypnea, normal percussion, rales, rhonchi, tachypneic, wheezes Gastrointestinal: negative: soft, non-tender, non-distended, normal bowel sounds, no palpable masses, no hepatomegaly, no splenomegaly, no bruit, no guarding, no rigidity, tender to palpation, distended, diminished bowl sounds, voluntary guarding Hosp A/P (1) COVID-19 virus infection Code(s): U07.1 - COVID-19 Status: Acute (2) Dementia Code(s): F03.90 - UNSPECIFIED DEMENTIA WITHOUT BEHAVIORAL DISTURBANCE Status: Acute (3) Dislocation of left thumb Code(s): S63.105A - UNSPECIFIED DISLOCATION OF LEFT THUMB, INITIAL ENCOUNTER Status: Acute - Plan (1) COVID-19 virus infection Code(s): U07.1 - COVID-19 Status: Acute (2) Coronary artery disease Code(s): I25.10 - ATHSCL HEART DISEASE OF [place] CORONARY ARTERY W/O ANG PCTRS Status: Acute (3) Dementia Code(s): F03.90 - UNSPECIFIED DEMENTIA WITHOUT BEHAVIORAL DISTURBANCE Status: Acute (4) Dislocation of left thumb Code(s): S63.105A - UNSPECIFIED DISLOCATION OF LEFT THUMB, INITIAL ENCOUNTER Status: Acute (5) Infected bite wound of finger Code(s): S61.259A - OPEN BITE OF UNSP FINGER WITHOUT DAMAGE TO NAIL, INIT ENCNTR; L08.9 - LOCAL INFECTION OF THE SKIN AND SUBCUTANEOUS TISSUE, UNSP Status: Acute (6) Elevated troponin I level Code(s): R74.8 - ABNORMAL LEVELS OF OTHER SERUM ENZYMES Status: Acute - Plan Assessment Patient is a 75 year old male with a PMH of CAD s/p CABG, Alzheimer's dementia and COPD. He was brought in by EMS after activating the emergency service. Found to have dislocated L thumb on arrival, s/p ORIF and I&D on 12/07 wound culture yielding yeast. Patient was also hypoxic on arrival, tested + for COVID 19. His hospital course complicated by acute decline in mental status and respiratory failure. He was given Haldol and developed worsened mental status and QT prolongation, T wave inversions and NSTEMI with maximum troponin of 0.65. I consulted cardiology as he was having chest pain and shortness of breath. Medical management was recommended. He also received 3 g of magnesium sulfate. The last 2 days patient has been slightly lethargic. He was found to have a sodium of 157 and is currently on volume repletion. Overall, patient is not appropriate to go back home when medically cleared. I have consulted the case management to help me with placement. Acute encephalopathy Metabolic encephalopathy due to hypernatremia, and Haldol-induced Taken off Haldol, avoid QT prolonging drugs Manage hypernatremia I will avoid medications such as benzodiazepines and antipsychotics for agitation since he is responding poorly to dose I voiced my concern to ID regarding use of fluconazole and QT prolongation will start pt on seroquel tonight Acute hypernatremia Bolus challenged with NS today Also started on free water replacement and D5 half NS for hypernatremia Monitor BMP every 4 hours Fungal infection of hand Intraoperative wound culture yielded yeast ID has been consulted and recommend waiting for final speciation to determine if it candidal infection In the meantime ID recommended micafungin if there was concern for QT prolongation with fluconazole NSTEMI with Hx of CAD s/p CABG Experienced chest pain shortly after haldol injections Morning jarrod to 0.65, acute Twi V3-V5 QT prolongation EKG Currently on medical therapy as per cardiology recommendation: Aspirin, atorvastatin, metoprolol and as needed nitroglycerin Also on anticoagulation Case management/Palliative care consulted for goals of care discussion Acute hypoxemic respiratory failure Cardiac vs pulmonary due to worsening COVID 19 infection His cxr has no consolidation, only emphysematous changes PE has been ruled out Successfully transitioned from BIPAP to nasal cannula Will wean down as tolerated COVID 19 pneumonia Day 6 of dexamethasone Did not qualify for Remdesivir as per pharmacy I will continue multivitamins and zinc CRP has trended down for the most part Continue supportive care Dislocated L thumb and infection s/p ORIF and I&D, IOP showing polymicrobial infection and yeast He is currently on broad-spectrum antibiotics Infectious disease has been consulted for antibiotics Continue MMP regimen and Lovenox for DVT prophylaxis Rib and shoulder pain Other x-ray ruled out fractures or injuries Occupational therapy and PT board desk manager has been consulted and we are contemplating SNF placement Dysphagia Passed swallow evaluation Resume diet as mental status improved COPD Emphysematous changes as per CXR Not in acute exacerbation As needed albuterol sulfate inhaler on board Alzheimer's dementia Continue supportive care
[2020-12-14] MEDS: Atorvastatin Calcium 20 MG TAB PO SCH (20:10)
[2020-12-14] MEDS: Losartan 25 MG TAB PO SCH (20:10)
[2020-12-14] MEDS: Lidocaine Patch Removal 1 EACH TOP SCH (20:10)
[2020-12-14] MEDS: Cholecalciferol 1,000 UNITS (25 MCG) TAB PO SCH (20:10)
[2020-12-15] MEDS: Nitroglycerin 2% Ointment 1 INCH/1 GM Packet TOP SCH ×3 (02:00→17:05)
[2020-12-15] MEDS: metroNIDAZOLE 500 MG in Premix Bag 1 BAG IVPB SCH ×2 (05:04→14:01)
[2020-12-15 08:54] LABS: Vancomycin, Trough 12.5 ug/mL
[2020-12-15] MEDS ORDERED: Vancomycin 1 GM in Premix Bag 1 BAG IVPB SCH (09:00)
[2020-12-15] MEDS: Dextrose 5 %-0.45 % NaCl 1,000 ML IV SCH ×2 (09:09→23:09)
[2020-12-15] MEDS: Enoxaparin Sodium 60 MG/0.6 ML SYRINGE SC SCH (09:12)
[2020-12-15] MEDS: Thiamine 100 MG TAB PO SCH (09:14)
[2020-12-15] MEDS: Aspirin 81 mg Enteric Coated Tablet PO SCH (09:14)
[2020-12-15] MEDS: Zinc Sulfate 220 MG CAP PO SCH (09:14)
[2020-12-15] MEDS: Vancomycin HCl 750 MG in Sodium Chloride 0.9% 250 ML 250 ML IVPB SCH (09:14)
[2020-12-15] MEDS: Ascorbic Acid 500 mg Chewable Tablet PO SCH (09:14)
[2020-12-15] MEDS: Dexamethasone 4 mg/ml Vial SLOW IVP SCH (09:14)
[2020-12-15] MEDS: Amiodarone 200 MG TAB PO SCH (09:14)
[2020-12-15] MEDS: Pantoprazole 40 MG VIAL IVP SCH (09:15)
[2020-12-15] MEDS: Lidocaine 5% Patch TD SCH (09:17)
--- NOTE | 2020-12-15 09:23 | EKG ---
Test Reason : Blood Pressure : / mmHG Vent. Rate : 067 BPM Atrial Rate : 067 BPM P-R Int : 166 ms QRS Dur : 102 ms QT Int : 556 ms P-R-T Axes : -01 061 077 degrees QTc Int : 587 ms Normal sinus rhythm Non-specific intra-ventricular conduction delay Prolonged QT Abnormal ECG Confirmed by AYO ROSAS ([id number]) on 12/15/2020 9:23:12 AM Referred By: [email or web address] Confirmed By:AYO ROSAS
--- NOTE | 2020-12-15 13:30 | PDOC.HOSPP ---
- Subjective Encounter Date: 12/15/20 Encounter Time: 11:00 Subjective: Patient up in bed confused - Objective Vital Signs & Weight: Vital Signs (12 hours) Temp Pulse Resp BP Pulse Ox 12/15/20 12:00 96.3 F L 62 22 H 157/68 H 97 12/15/20 10:00 97.1 F L 97 24 H 175/76 H 97 12/15/20 09:55 99 12/15/20 08:00 97.0 F L 61 24 H 169/71 H 90 L 12/15/20 06:27 97 F L 71 18 162/74 H 95 12/15/20 04:00 98 F 67 18 159/72 H 96 12/15/20 02:17 71 18 161/72 H 94 L Weight Admit Weight 134 lb 4.8 oz Weight 125 lb 9.6 oz I&O: 12/14/20 12/15/20 12/16/20 06:59 06:59 06:59 Intake Total 3942.5 1300 Output Total 955 200 Balance 2987.5 1100 Result Diagrams: 12/11/20 04:41 12/14/20 14:02 Hospitalist ROS - Review of Systems Other: confused - Medication Medications: Active Medications Generic Name Dose Route Start Last Admin Trade Name Freq PRN Reason Stop Dose Admin Acetaminophen 650 mg 12/06/20 16:48 12/07/20 08:21 Acetaminophen 325 Mg Tab PO 650 mg Q4H PRN Administration Headache/Fever/Mild Pain (1-3) Albuterol Sulfate 1 puff 12/10/20 04:20 12/10/20 04:34 Albuterol 200 Puff (6.7gm Inhaler) INH 1 puff Q4H PRN Administration SOB/WHEEZE Amiodarone HCl 200 mg 12/12/20 09:00 12/15/20 09:14 Amiodarone 200 Mg Tab PO 200 mg DAILY [place] Administration Ascorbic Acid 1,000 mg 12/07/20 09:00 12/15/20 09:14 Ascorbic Acid 500 Mg Chewable Tablet PO 1,000 mg DAILY [place] Administration Aspirin 81 mg 12/07/20 09:00 12/15/20 09:14 Aspirin 81 Mg Enteric Coated Tablet PO 81 mg DAILY [place] Administration Atorvastatin Calcium 20 mg 12/07/20 21:00 12/14/20 20:10 Atorvastatin Calcium 20 Mg Tab PO 20 mg HS [place] Administration Cholecalciferol 1,000 units 12/06/20 21:00 12/14/20 20:10 Cholecalciferol 1,000 Units (25 Mcg) Tab PO 1,000 units HS [place] Administration Dexamethasone 6 mg 12/09/20 09:00 12/15/20 09:14 Dexamethasone 4 Mg/Ml Vial SLOW IVP 6 mg DAILY [place] Administration Enoxaparin Sodium 60 mg 12/13/20 09:00 12/15/20 09:12 Enoxaparin Sodium 60 Mg/0.6 Ml Syringe SC 60 mg DAILY [place] Administration Hydralazine HCl 10 mg 12/12/20 04:05 12/12/20 04:18 Hydralazine 20 Mg/Ml Vial SLOW IVP 10 mg Q4H PRN Administration SBP Greater Than 180 Metronidazole 500 mg/ Device 100 mls @ 100 mls/hr 12/11/20 22:00 12/15/20 05:04 IVPB 100 mls Q8HR [place] Administration Dextrose/Sodium Chloride 1,000 mls @ 100 mls/hr 12/13/20 07:45 12/15/20 09:09 D5 1/2 Ns IV 1,000 mls .Q10H [place] Administration Vancomycin HCl 1 gm/ Device 200 mls @ 250 mls/hr 12/15/20 09:00 12/15/20 10:01 IVPB Not Given 0900,2099 [place] Lidocaine 2 patch 12/07/20 09:00 12/15/20 09:17 Lidocaine 5% Patch TD 2 patch DAILY [place] Administration Losartan Potassium 25 mg 12/07/20 21:00 12/14/20 20:10 Losartan 25 Mg Tab PO 25 mg HS [place] Administration Metoprolol Succinate 50 mg 12/13/20 09:00 12/15/20 09:12 Metoprolol Succinate Xl 50 Mg Tab PO 50 mg DAILY [place] Administration Miscellaneous Medication 2 each 12/07/20 21:00 12/14/20 20:10 Lidocaine Patch Removal 1 Each TOP 2 each 2100 [place] Administration Nitroglycerin 1 inch 12/10/20 18:00 12/15/20 09:17 Nitroglycerin 2% Ointment 1 Inch/1 Gm Packet TOP 1 inch 0200,1000,1800 [place] Administration Pantoprazole Sodium 40 mg 12/10/20 09:00 12/15/20 09:15 Pantoprazole 40 Mg Vial IVP 40 mg DAILY [place] Administration Quetiapine Fumarate 25 mg 12/15/20 09:00 12/15/20 09:13 Quetiapine Fumarate 25 Mg Tab PO 25 mg DAILY [place] Administration Sodium Chloride 10 ml 12/09/20 20:00 12/13/20 21:36 Flush - Normal Saline 10 Ml Syringe IVF 10 ml PRN PRN Administration Saline Flush Thiamine HCl 100 mg 12/07/20 09:00 12/15/20 09:14 Thiamine 100 Mg Tab PO 100 mg DAILY [place] Administration Zinc Sulfate 220 mg 12/07/20 09:00 12/15/20 09:14 Zinc Sulfate 220 Mg Cap PO 220 mg DAILY [place] Administration - Exam Neck: negative: supple, symmetric, no JVD, no thyromegaly, no lymphadenopathy, no carotid bruit, JVD Heart: negative: RRR, no murmur, no gallops, no rubs, normal peripheral pulses, irregular, diminshed peripheral pulses, murmur present, II/IV, III/IV Respiratory: negative: CTAB, no wheezes, no rales, no ronchi, normal chest expansion, no tachypnea, normal percussion, rales, rhonchi, tachypneic, wheezes Gastrointestinal: negative: soft, non-tender, non-distended, normal bowel sounds, no palpable masses, no hepatomegaly, no splenomegaly, no bruit, no guarding, no rigidity, tender to palpation, distended, diminished bowl sounds, voluntary guarding Hosp A/P (1) COVID-19 virus infection Code(s): U07.1 - COVID-19 Status: Acute (2) Dementia Code(s): F03.90 - UNSPECIFIED DEMENTIA WITHOUT BEHAVIORAL DISTURBANCE Status: Acute (3) Dislocation of left thumb Code(s): S63.105A - UNSPECIFIED DISLOCATION OF LEFT THUMB, INITIAL ENCOUNTER Status: Acute - Plan (1) COVID-19 virus infection Code(s): U07.1 - COVID-19 Status: Acute (2) Coronary artery disease Code(s): I25.10 - ATHSCL HEART DISEASE OF [place] CORONARY ARTERY W/O ANG PCTRS Status: Acute (3) Dementia Code(s): F03.90 - UNSPECIFIED DEMENTIA WITHOUT BEHAVIORAL DISTURBANCE Status: Acute (4) Dislocation of left thumb Code(s): S63.105A - UNSPECIFIED DISLOCATION OF LEFT THUMB, INITIAL ENCOUNTER Status: Acute (5) Infected bite wound of finger Code(s): S61.259A - OPEN BITE OF UNSP FINGER WITHOUT DAMAGE TO NAIL, INIT ENCNTR; L08.9 - LOCAL INFECTION OF THE SKIN AND SUBCUTANEOUS TISSUE, UNSP Status: Acute (6) Elevated troponin I level Code(s): R74.8 - ABNORMAL LEVELS OF OTHER SERUM ENZYMES Status: Acute - Plan Assessment Patient is a 75 year old male with a PMH of CAD s/p CABG, Alzheimer's dementia and COPD. He was brought in by EMS after activating the emergency service. Found to have dislocated L thumb on arrival, s/p ORIF and I&D on 12/07 wound culture yielding yeast. Patient was also hypoxic on arrival, tested + for COVID 19. His hospital course complicated by acute decline in mental status and respiratory failure. He was given Haldol and developed worsened mental status and QT prolongation, T wave inversions and NSTEMI with maximum troponin of 0.65. I consulted cardiology as he was having chest pain and shortness of breath. Medical management was recommended. He also received 3 g of magnesium sulfate. The last 2 days patient has been slightly lethargic. He was found to have a sodium of 157 and is currently on volume repletion. Overall, patient is not appropriate to go back home when medically cleared. I have consulted the case management to help me with placement. Acute encephalopathy Metabolic encephalopathy due to hypernatremia, and Haldol-induced Taken off Haldol, avoid QT prolonging drugs Manage hypernatremia I will avoid medications such as benzodiazepines and antipsychotics for agitation since he is responding poorly to dose I voiced my concern to ID regarding use of fluconazole and QT prolongation will start pt on seroquel tonight Acute hypernatremia Bolus challenged with NS today Also started on free water replacement and D5 half NS for hypernatremia Monitor BMP every 4 hours Fungal infection of hand Intraoperative wound culture yielded yeast ID has been consulted and recommend waiting for final speciation to determine if it candidal infection In the meantime ID recommended micafungin if there was concern for QT prolongation with fluconazole NSTEMI with Hx of CAD s/p CABG Experienced chest pain shortly after haldol injections Morning jarrod to 0.65, acute Twi V3-V5 QT prolongation EKG Currently on medical therapy as per cardiology recommendation: Aspirin, atorvastatin, metoprolol and as needed nitroglycerin Also on anticoagulation Case management/Palliative care consulted for goals of care discussion Acute hypoxemic respiratory failure Cardiac vs pulmonary due to worsening COVID 19 infection His cxr has no consolidation, only emphysematous changes PE has been ruled out Successfully transitioned from BIPAP to nasal cannula Will wean down as tolerated COVID 19 pneumonia Day 6 of dexamethasone Did not qualify for Remdesivir as per pharmacy I will continue multivitamins and zinc CRP has trended down for the most part Continue supportive care Dislocated L thumb and infection s/p ORIF and I&D, IOP showing polymicrobial infection and yeast He is currently on broad-spectrum antibiotics Infectious disease has been consulted for antibiotics Continue MMP regimen and Lovenox for DVT prophylaxis Rib and shoulder pain Other x-ray ruled out fractures or injuries Occupational therapy and PT board manager sign has been consulted and we are contemplating SNF placement Dysphagia Passed swallow evaluation Resume diet as mental status improved COPD Emphysematous changes as per CXR Not in acute exacerbation As needed albuterol sulfate inhaler on board Alzheimer's dementia Continue supportive care 12/15 waiting for placement. will ask nursing staff to remove his restraints and see how he does. Hypernatremia improving. will stop iv fluids in am if his hypernatremia improves.
[2020-12-15] MEDS: cefTRIAXone\\ROCEPHIN 2 GM in Sodium Chloride 0.9% 100 ML IVPB SCH (20:50)
[2020-12-15] MEDS: Atorvastatin Calcium 20 MG TAB PO SCH (20:51)
[2020-12-15] MEDS: Tamsulosin HCl 0.4 MG CAP PO SCH (20:51)
[2020-12-15] MEDS: Losartan 25 MG TAB PO SCH (20:51)
[2020-12-15] MEDS: Lidocaine Patch Removal 1 EACH TOP SCH (20:51)
[2020-12-15] MEDS: Cholecalciferol 1,000 UNITS (25 MCG) TAB PO SCH (20:51)
[2020-12-15] MEDS: Apixaban 2.5 MG TAB PO SCH (20:51)
[2020-12-16] MEDS: Nitroglycerin 2% Ointment 1 INCH/1 GM Packet TOP SCH ×3 (01:50→18:30)
[2020-12-16] MEDS: Dextrose 5 %-0.45 % NaCl 1,000 ML IV SCH ×2 (04:30→10:55)
[2020-12-16 05:28] LABS: Anion Gap 13 mmol/L (10-20); BUN (Urea Nitrogen) 21 mg/dL (8.4-25.7); Calc. Creatinine Clearance 63 mL/min (70-130); Calcium 7.8 mg/dL (7.8-10.44); Carbon Dioxide 23 mmol/L (23-31); Chloride 113 mmol/L (98-107); Glucose 174 mg/dL (83-110); Magnesium 2.1 mg/dL (1.6-2.6); Potassium 3.6 mmol/L (3.5-5.1); Sodium 145 mmol/L (136-145)
[2020-12-16] MEDS: hydrALAZINE 20 MG/ML VIAL SLOW IVP PRN (05:38)
--- NOTE | 2020-12-16 06:18 | PRG ---
DATE OF SERVICE: 12/15/2020 SUBJECTIVE: [place] is kind of confused, unable to interact with examiner, mumbles unintelligible sounds, looks around sometimes and he will not follow commands. Temperature is normal, O2 saturation 98. His left first toe is dressed. I have a photo from the dressing changes. He has a peripheral IV access, and he had an indwelling Gam[place], which was removed. OBJECTIVE: HEENT: Pupils are equal. His ocular movements are intact. LUNGS: Symmetric, clear breath sounds ABDOMEN: Soft and not distended. Bladder appears to be distended. LABORATORY DATA: White cell count 7.9, hemoglobin 10.9, platelets 191. Creatinine 0.77. DISCUSSION: Yeast in the toe, unfortunately there was a specimen still for the lab to submit, but they were not going to submit for further identification and testing. So, I asked the microbiologist to submit the sample to referral lab for further identification and susceptibility testing of the yeast. He does have other organisms there, but I think we can discontinue the vancomycin at this point in time since no Staphylococcal growth was obtained, it is probably just skin bacteria, and with yeast as the predominant pathogen, so we will continue Rocephin and Diflucan until we have further identification to assist with determination of the subsequent regimen. His saturations are excellent on room air, so should not have any problems with SARS-CoV-2 infection anymore. Job ID: [id number] MTDD
[2020-12-16] MEDS ORDERED: Potassium Chloride 20 MEQ TAB PO SCH (08:00)
[2020-12-16] MEDS: Iron Polysaccharides Complex 150 MG CAP PO SCH (09:00)
[2020-12-16] MEDS: Zinc Sulfate 220 MG CAP PO SCH (09:04)
[2020-12-16] MEDS: Magnesium Oxide 400 MG TAB PO SCH ×2 (09:04→18:29)
[2020-12-16] MEDS: Ascorbic Acid 500 mg Chewable Tablet PO SCH (09:04)
[2020-12-16] MEDS: Dexamethasone 4 mg/ml Vial SLOW IVP SCH (09:05)
[2020-12-16] MEDS: Aspirin 81 mg Enteric Coated Tablet PO SCH (09:05)
[2020-12-16] MEDS: Apixaban 2.5 MG TAB PO SCH ×2 (09:05→21:35)
[2020-12-16] MEDS: Amiodarone 200 MG TAB PO SCH (09:05)
[2020-12-16] MEDS: Thiamine 100 MG TAB PO SCH (09:05)
[2020-12-16] MEDS: Lidocaine 5% Patch TD SCH (10:55)
[2020-12-16] MEDS: Tamsulosin HCl 0.4 MG CAP PO SCH (20:32)
[2020-12-16] MEDS: Atorvastatin Calcium 20 MG TAB PO SCH (20:32)
[2020-12-16] MEDS: Losartan 25 MG TAB PO SCH (20:32)
[2020-12-16] MEDS: cefTRIAXone\\ROCEPHIN 2 GM in Sodium Chloride 0.9% 100 ML IVPB SCH (21:34)
[2020-12-16] MEDS: Lidocaine Patch Removal 1 EACH TOP SCH (22:49)
[2020-12-17] MEDS: hydrALAZINE 20 MG/ML VIAL SLOW IVP PRN (00:48)
[2020-12-17] MEDS: Dextrose 5 %-0.45 % NaCl 1,000 ML IV SCH ×2 (03:00→07:31)
[2020-12-17] MEDS: Nitroglycerin 2% Ointment 1 INCH/1 GM Packet TOP SCH ×3 (03:47→17:33)
[2020-12-17] MEDS: Cholecalciferol 1,000 UNITS (25 MCG) TAB PO SCH ×2 (03:49→20:49)
[2020-12-17 05:22] LABS: #Lymphocytes 0.7 thou/uL (1.20-3.40); #Monocytes 0.7 thou/uL (0.11-0.59); #Neutrophils 8.7 thou/uL (1.40-6.50); %Basophils 0.3 % (0.0-1.0); %Eosinophils 0.1 % (0.0-10.0); %Lymphocytes 6.4 % (21.0-51.0); %Neutrophils 86.1 % (42.0-75.0); Hemoglobin 9.9 g/dL (14.0-18.0); Mean Corpuscular HGB CONC 30.9 g/dL (32.0-36.0); Mean Corpuscular Volume 87.4 fL (78.0-98.0); Mean Platelet Volume 11.2 fL (7.4-10.4); Platelet Count 227 thou/uL (130-400); RBC Distribution Width 18.6 % (11.5-14.5); Red Blood Cell (RBC) Count 3.67 mill/uL (4.70-6.10); White Blood Cell (WBC) Count 10.1 thou/uL (4.8-10.8)
[2020-12-17 05:50] LABS: ALT (SGPT) 30 U/L (8-55); AST (SGOT) 26 U/L (5-34); Albumin 2.6 g/dL (3.4-4.8); Alkaline Phosphatase 98 U/L (40-110); Anion Gap 12 mmol/L (10-20); BUN (Urea Nitrogen) 17 mg/dL (8.4-25.7); Bilirubin, Total 0.7 mg/dL (0.2-1.2); CRP (Inflammatory) 7.86 mg/dL (= or < 0.5); Calc. Creatinine Clearance 69 mL/min (70-130); Calcium 7.8 mg/dL (7.8-10.44); Carbon Dioxide 22 mmol/L (23-31); Chloride 113 mmol/L (98-107); Globulin 2.9 g/dL (2.4-3.5); Glucose 151 mg/dL (83-110); Potassium 3.7 mmol/L (3.5-5.1); Protein, Total 5.5 g/dL (5.8-8.1); Sodium 143 mmol/L (136-145)
[2020-12-17] MEDS: Aspirin 81 mg Enteric Coated Tablet PO SCH (08:25)
[2020-12-17] MEDS: Magnesium Oxide 400 MG TAB PO SCH ×2 (08:25→17:10)
[2020-12-17] MEDS: Zinc Sulfate 220 MG CAP PO SCH (08:25)
[2020-12-17] MEDS: Ascorbic Acid 500 mg Chewable Tablet PO SCH (08:25)
[2020-12-17] MEDS: Lidocaine 5% Patch TD SCH (08:26)
[2020-12-17] MEDS: Amiodarone 200 MG TAB PO SCH (08:26)
[2020-12-17] MEDS: Apixaban 2.5 MG TAB PO SCH ×2 (08:26→20:51)
[2020-12-17] MEDS: Iron Polysaccharides Complex 150 MG CAP PO SCH (08:26)
[2020-12-17] MEDS: Thiamine 100 MG TAB PO SCH (08:26)
[2020-12-17] MEDS: Dexamethasone 4 mg/ml Vial SLOW IVP SCH (08:27)
--- NOTE | 2020-12-17 09:43 | PDOC.HOSPP ---
- Subjective Encounter Date: 12/16/20 - Objective Vital Signs & Weight: Vital Signs (12 hours) Temp Pulse Resp BP BP BP Pulse Ox 12/17/20 08:30 96.7 F L 65 18 156/69 H 94 L 12/17/20 04:00 98.6 F 61 14 153/67 H 94 L 12/17/20 02:00 67 16 163/73 H 94 L 12/17/20 00:48 70 173/107 H 12/17/20 00:00 97.6 F 72 14 173/107 H 97 12/16/20 22:00 70 14 172/72 H 97 Weight Admit Weight 134 lb 4.8 oz Weight 125 lb 9.6 oz I&O: 12/16/20 12/17/20 12/18/20 06:59 06:59 06:59 Intake Total 2520 3443 Output Total 1100 Balance 1420 3443 Result Diagrams: 12/17/20 05:03 12/17/20 05:03 Hospitalist ROS - Medication Medications: Active Medications Generic Name Dose Route Start Last Admin Trade Name Freq PRN Reason Stop Dose Admin Acetaminophen 650 mg 12/06/20 16:48 12/07/20 08:21 Acetaminophen 325 Mg Tab PO 650 mg Q4H PRN Administration Headache/Fever/Mild Pain (1-3) Albuterol Sulfate 1 puff 12/10/20 04:20 12/10/20 04:34 Albuterol 200 Puff (6.7gm Inhaler) INH 1 puff Q4H PRN Administration SOB/WHEEZE Amiodarone HCl 200 mg 12/12/20 09:00 12/17/20 08:26 Amiodarone 200 Mg Tab PO 200 mg DAILY [place] Administration Apixaban 2.5 mg 12/15/20 21:00 12/17/20 08:26 Apixaban 2.5 Mg Tab PO 2.5 mg BID [place] Administration Ascorbic Acid 1,000 mg 12/07/20 09:00 12/17/20 08:25 Ascorbic Acid 500 Mg Chewable Tablet PO 1,000 mg DAILY [place] Administration Aspirin 81 mg 12/07/20 09:00 12/17/20 08:25 Aspirin 81 Mg Enteric Coated Tablet PO 81 mg DAILY [place] Administration Atorvastatin Calcium 20 mg 12/07/20 21:00 12/16/20 20:32 Atorvastatin Calcium 20 Mg Tab PO 20 mg HS [place] Administration Cholecalciferol 1,000 units 12/06/20 21:00 12/17/20 03:49 Cholecalciferol 1,000 Units (25 Mcg) Tab PO Not Given HS [place] Dexamethasone 6 mg 12/09/20 09:00 12/17/20 08:27 Dexamethasone 4 Mg/Ml Vial SLOW IVP 6 mg DAILY [place] Administration Hydralazine HCl 10 mg 12/12/20 04:05 12/17/20 00:48 Hydralazine 20 Mg/Ml Vial SLOW IVP 10 mg Q4H PRN Administration SBP Greater Than 180 Ceftriaxone Sodium 2 gm/ 100 mls @ 200 mls/hr 12/15/20 20:00 12/16/20 21:34 Sodium Chloride IVPB 100 mls Q24HR [place] Administration Dextrose/Sodium Chloride 1,000 mls @ 50 mls/hr 12/16/20 09:05 12/17/20 07:31 D5 1/2 Ns IV Not Given .Q20H [place] Lidocaine 2 patch 12/07/20 09:00 12/17/20 08:26 Lidocaine 5% Patch TD 2 patch DAILY [place] Administration Losartan Potassium 50 mg 12/16/20 21:00 12/16/20 20:32 Losartan 25 Mg Tab PO 50 mg HS [place] Administration Magnesium Oxide 200 mg 12/16/20 08:00 12/17/20 08:25 Magnesium Oxide 400 Mg Tab PO 200 mg BID-WM [place] Administration Metoprolol Succinate 50 mg 12/13/20 09:00 12/17/20 08:25 Metoprolol Succinate Xl 50 Mg Tab PO 50 mg DAILY [place] Administration Miscellaneous Medication 2 each 12/07/20 21:00 12/16/20 22:49 Lidocaine Patch Removal 1 Each TOP 2 each 2100 [place] Administration Nitroglycerin 1 inch 12/10/20 18:00 12/17/20 03:47 Nitroglycerin 2% Ointment 1 Inch/1 Gm Packet TOP 1 inch 0200,1000,1800 [place] Administration Pantoprazole Sodium 40 mg 12/16/20 09:00 12/17/20 08:26 Pantoprazole 40 Mg Tab PO 40 mg DAILY [place] Administration Polysaccharide Iron Complex 150 mg 12/16/20 09:00 12/17/20 08:26 Iron Polysaccharides Complex 150 Mg Cap PO 150 mg DAILY [place] Administration Quetiapine Fumarate 25 mg 12/16/20 21:00 12/16/20 20:32 Quetiapine Fumarate 25 Mg Tab PO 25 mg HS [place] Administration Sodium Chloride 10 ml 12/09/20 20:00 12/13/20 21:36 Flush - Normal Saline 10 Ml Syringe IVF 10 ml PRN PRN Administration Saline Flush Tamsulosin HCl 0.4 mg 12/15/20 21:00 12/16/20 20:32 Tamsulosin Hcl 0.4 Mg Cap PO 0.4 mg HS [place] Administration Thiamine HCl 100 mg 12/07/20 09:00 12/17/20 08:26 Thiamine 100 Mg Tab PO 100 mg DAILY [place] Administration Zinc Sulfate 220 mg 12/07/20 09:00 12/17/20 08:25 Zinc Sulfate 220 Mg Cap PO 220 mg DAILY [place] Administration Hosp A/P (1) COVID-19 virus infection Code(s): U07.1 - COVID-19 Status: Acute (2) Dementia Code(s): F03.90 - UNSPECIFIED DEMENTIA WITHOUT BEHAVIORAL DISTURBANCE Status: Acute (3) Dislocation of left thumb Code(s): S63.105A - UNSPECIFIED DISLOCATION OF LEFT THUMB, INITIAL ENCOUNTER Status: Acute - Plan (1) COVID-19 virus infection Code(s): U07.1 - COVID-19 Status: Acute (2) Coronary artery disease Code(s): I25.10 - ATHSCL HEART DISEASE OF [place] CORONARY ARTERY W/O ANG PCTRS Status: Acute (3) Dementia Code(s): F03.90 - UNSPECIFIED DEMENTIA WITHOUT BEHAVIORAL DISTURBANCE Status: Acute (4) Dislocation of left thumb Code(s): S63.105A - UNSPECIFIED DISLOCATION OF LEFT THUMB, INITIAL ENCOUNTER Status: Acute (5) Infected bite wound of finger Code(s): S61.259A - OPEN BITE OF UNSP FINGER WITHOUT DAMAGE TO NAIL, INIT ENCNTR; L08.9 - LOCAL INFECTION OF THE SKIN AND SUBCUTANEOUS TISSUE, UNSP Status: Acute (6) Elevated troponin I level Code(s): R74.8 - ABNORMAL LEVELS OF OTHER SERUM ENZYMES Status: Acute - Plan Assessment Patient is a 75 year old male with a PMH of CAD s/p CABG, Alzheimer's dementia and COPD. He was brought in by EMS after activating the emergency service. Found to have dislocated L thumb on arrival, s/p ORIF and I&D on 12/07 wound culture yielding yeast. Patient was also hypoxic on arrival, tested + for COVID 19. His hospital course complicated by acute decline in mental status and respiratory failure. He was given Haldol and developed worsened mental status and QT prolongation, T wave inversions and NSTEMI with maximum troponin of 0.65. I consulted cardiology as he was having chest pain and shortness of breath. Medical management was recommended. He also received 3 g of magnesium sulfate. The last 2 days patient has been slightly lethargic. He was found to have a sodium of 157 and is currently on volume repletion. Overall, patient is not appropriate to go back home when medically cleared. I have consulted the case management to help me with placement. Acute encephalopathy Metabolic encephalopathy due to hypernatremia, and Haldol-induced Taken off Haldol, avoid QT prolonging drugs Manage hypernatremia I will avoid medications such as benzodiazepines and antipsychotics for agitation since he is responding poorly to dose I voiced my concern to ID regarding use of fluconazole and QT prolongation will start pt on seroquel tonight Acute hypernatremia Bolus challenged with NS today Also started on free water replacement and D5 half NS for hypernatremia Monitor BMP every 4 hours Fungal infection of hand Intraoperative wound culture yielded yeast ID has been consulted and recommend waiting for final speciation to determine if it candidal infection In the meantime ID recommended micafungin if there was concern for QT prolongation with fluconazole NSTEMI with Hx of CAD s/p CABG Experienced chest pain shortly after haldol injections Morning jarrod to 0.65, acute Twi V3-V5 QT prolongation EKG Currently on medical therapy as per cardiology recommendation: Aspirin, atorvastatin, metoprolol and as needed nitroglycerin Also on anticoagulation Case management/Palliative care consulted for goals of care discussion Acute hypoxemic respiratory failure Cardiac vs pulmonary due to worsening COVID 19 infection His cxr has no consolidation, only emphysematous changes PE has been ruled out Successfully transitioned from BIPAP to nasal cannula Will wean down as tolerated COVID 19 pneumonia Day 6 of dexamethasone Did not qualify for Remdesivir as per pharmacy I will continue multivitamins and zinc CRP has trended down for the most part Continue supportive care Dislocated L thumb and infection s/p ORIF and I&D, IOP showing polymicrobial infection and yeast He is currently on broad-spectrum antibiotics Infectious disease has been consulted for antibiotics Continue MMP regimen and Lovenox for DVT prophylaxis Rib and shoulder pain Other x-ray ruled out fractures or injuries Occupational therapy and PT board associate sales manager has been consulted and we are contemplating SNF placement Dysphagia Passed swallow evaluation Resume diet as mental status improved COPD Emphysematous changes as per CXR Not in acute exacerbation As needed albuterol sulfate inhaler on board Alzheimer's dementia Continue supportive care
--- NOTE | 2020-12-17 10:32 | RAD ---
PORTABLE CHEST: Date: 12/17/2020 PROVIDED CLINICAL HISTORY: Shortness of breath. FINDINGS: Comparison with 12/09/2020. Cardiac silhouette appears prominent, likely at least partially on the basis of cortical technique. M edian sternotomy changes are again demonstrated. Development of patchy bilateral air space disease. T here is no pleural fluid or pneumothorax apparent. There is stable blunting of the left costophrenic angle. There is no evidence for pneumothorax. IMPRESSION: Development of patchy bilateral air space disease. Correlate for pneumonia versus edema. POS: RICH
[2020-12-17] MEDS ORDERED: metroNIDAZOLE 500 MG in Premix Bag 1 BAG IVPB SCH (14:00)
[2020-12-17 15:56] LABS: Actual Bicarbonate (HCO3a) 22.7 mEq/L (22-28); CO2 Tension 47.8 mmHg (35.0-45.0); Calcium, Ionized (arterial) 1.19 mmol/L (1.12-1.30); Carboxyhemoglobin (COHb) 0.9 gm% (0.0-3.0); Hemoglobin (Hb) 12.2 g/dL (14.0-18.0); O2 Tension (PaO2), arterial 70.7 mmHg (> 70.0); Potassium - ABG Lab 4.13 mmol/L (3.70-5.30); pH, Arterial 7.29 (7.35-7.45)
[2020-12-17] MEDS ORDERED: Meropenem 1 GM in Sodium Chloride 0.9% 100 ML IVPB SCH (16:00)
[2020-12-17 16:08] LABS: Puncture Site RBA
--- NOTE | 2020-12-17 16:19 | PDOC.HOSPP ---
- Subjective Encounter Date: 12/17/20 Encounter Time: 10:30 Subjective: Patient up in bed appears more obtunded and tachypneic - Objective Vital Signs & Weight: Vital Signs (12 hours) Temp Pulse Resp BP Pulse Ox 12/17/20 15:53 148/70 H 12/17/20 15:22 96.5 F L 68 32 H 158/70 H 92 L 12/17/20 13:40 66 30 H 125/60 99 12/17/20 12:05 97.6 F 69 28 H 163/70 H 97 12/17/20 10:04 72 22 H 162/76 H 93 L 12/17/20 08:36 94 L 12/17/20 08:30 96.7 F L 65 18 156/69 H 94 L Weight Admit Weight 134 lb 4.8 oz Weight 125 lb 9.6 oz I&O: 12/16/20 12/17/20 12/18/20 06:59 06:59 06:59 Intake Total 2520 3443 Output Total 1100 Balance 1420 3443 Result Diagrams: 12/17/20 05:03 12/17/20 05:03 Hospitalist ROS - Review of Systems Other: Unable to obtain - Medication Medications: Active Medications Generic Name Dose Route Start Last Admin Trade Name Freq PRN Reason Stop Dose Admin Acetaminophen 650 mg 12/06/20 16:48 12/07/20 08:21 Acetaminophen 325 Mg Tab PO 650 mg Q4H PRN Administration Headache/Fever/Mild Pain (1-3) Albuterol Sulfate 2 puff 12/06/20 17:00 12/17/20 11:02 Proventil Inhaler 6.7 G (200 Inhalations) INH 2 puff [id number] PRN Administration Wheezing Albuterol Sulfate 1 puff 12/10/20 04:20 12/10/20 04:34 Albuterol 200 Puff (6.7gm Inhaler) INH 1 puff Q4H PRN Administration SOB/WHEEZE Amiodarone HCl 200 mg 12/12/20 09:00 12/17/20 08:26 Amiodarone 200 Mg Tab PO 200 mg DAILY MIRIELLE Administration Apixaban 2.5 mg 12/15/20 21:00 12/17/20 08:26 Apixaban 2.5 Mg Tab PO 2.5 mg BID MIREILLE Administration Ascorbic Acid 1,000 mg 12/07/20 09:00 12/17/20 08:25 Ascorbic Acid 500 Mg Chewable Tablet PO 1,000 mg DAILY MIREILLE Administration Aspirin 81 mg 12/07/20 09:00 12/17/20 08:25 Aspirin 81 Mg Enteric Coated Tablet PO 81 mg DAILY MIREILLE Administration Atorvastatin Calcium 20 mg 12/07/20 21:00 12/16/20 20:32 Atorvastatin Calcium 20 Mg Tab PO 20 mg HS MIREILLE Administration Cholecalciferol 1,000 units 12/06/20 21:00 12/17/20 03:49 Cholecalciferol 1,000 Units (25 Mcg) Tab PO Not Given HS MIREILLE Dexamethasone 6 mg 12/09/20 09:00 12/17/20 08:27 Dexamethasone 4 Mg/Ml Vial SLOW IVP 6 mg DAILY MIREILLE Administration Hydralazine HCl 10 mg 12/12/20 04:05 12/17/20 00:48 Hydralazine 20 Mg/Ml Vial SLOW IVP 10 mg Q4H PRN Administration SBP Greater Than 180 Lidocaine 2 patch 12/07/20 09:00 12/17/20 08:26 Lidocaine 5% Patch TD 2 patch DAILY MIREILLE Administration Losartan Potassium 50 mg 12/16/20 21:00 12/16/20 20:32 Losartan 25 Mg Tab PO 50 mg HS [facility] Administration Magnesium Oxide 200 mg 12/16/20 08:00 12/17/20 08:25 Magnesium Oxide 400 Mg Tab PO 200 mg BID-WM MIREILLE Administration Metoprolol Succinate 50 mg 12/13/20 09:00 12/17/20 08:25 Metoprolol Succinate Xl 50 Mg Tab PO 50 mg DAILY MIREILLE Administration Miscellaneous Medication 2 each 12/07/20 21:00 12/16/20 22:49 Lidocaine Patch Removal 1 Each TOP 2 each 2100 MIREILLE Administration Nitroglycerin 1 inch 12/10/20 18:00 12/17/20 09:54 Nitroglycerin 2% Ointment 1 Inch/1 Gm Packet TOP 1 inch 0200,1000,1800 MIREILLE Administration Pantoprazole Sodium 40 mg 12/16/20 09:00 12/17/20 08:26 Pantoprazole 40 Mg Tab PO 40 mg DAILY MIREILLE Administration Polysaccharide Iron Complex 150 mg 12/16/20 09:00 12/17/20 08:26 Iron Polysaccharides Complex 150 Mg Cap PO 150 mg DAILY MIREILLE Administration Quetiapine Fumarate 25 mg 12/16/20 21:00 12/16/20 20:32 Quetiapine Fumarate 25 Mg Tab PO 25 mg HS MIREILLE Administration Sodium Chloride 10 ml 12/09/20 20:00 12/13/20 21:36 Flush - Normal Saline 10 Ml Syringe IVF 10 ml PRN PRN Administration Saline Flush Tamsulosin HCl 0.4 mg 12/15/20 21:00 12/16/20 20:32 Tamsulosin Hcl 0.4 Mg Cap PO 0.4 mg HS MIREILLE Administration Thiamine HCl 100 mg 12/07/20 09:00 12/17/20 08:26 Thiamine 100 Mg Tab PO 100 mg DAILY MIREILLE Administration Zinc Sulfate 220 mg 12/07/20 09:00 12/17/20 08:25 Zinc Sulfate 220 Mg Cap PO 220 mg DAILY MIREILLE Administration - Exam Neck: negative: supple, symmetric, no JVD, no thyromegaly, no lymphadenopathy, no carotid bruit, JVD Heart: negative: RRR, no murmur, no gallops, no rubs, normal peripheral pulses, irregular, diminshed peripheral pulses, murmur present, II/IV, III/IV Respiratory: rales, rhonchi, wheezes Gastrointestinal: negative: soft, non-tender, non-distended, normal bowel sounds, no palpable masses, no hepatomegaly, no splenomegaly, no bruit, no guarding, no rigidity, tender to palpation, distended, diminished bowl sounds, voluntary guarding Hosp A/P (1) COVID-19 virus infection Code(s): U07.1 - COVID-19 Status: Acute (2) Dementia Code(s): F03.90 - UNSPECIFIED DEMENTIA WITHOUT BEHAVIORAL DISTURBANCE Status: Acute (3) Dislocation of left thumb Code(s): S63.105A - UNSPECIFIED DISLOCATION OF LEFT THUMB, INITIAL ENCOUNTER Status: Acute (4) Aspiration pneumonia Code(s): J69.0 - PNEUMONITIS DUE TO INHALATION OF FOOD AND VOMIT Status: Acute (5) Acute on chronic respiratory failure with hypoxia and hypercapnia Code(s): J96.21 - ACUTE AND CHRONIC RESPIRATORY FAILURE WITH HYPOXIA; J96.22 - ACUTE AND CHRONIC RESPIRATORY FAILURE WITH HYPERCAPNIA Status: Acute - Plan (1) COVID-19 virus infection Code(s): U07.1 - COVID-19 Status: Acute (2) Coronary artery disease Code(s): I25.10 - ATHSCL HEART DISEASE OF [place] CORONARY ARTERY W/O ANG PCTRS Status: Acute (3) Dementia Code(s): F03.90 - UNSPECIFIED DEMENTIA WITHOUT BEHAVIORAL DISTURBANCE Status: Acute (4) Dislocation of left thumb Code(s): S63.105A - UNSPECIFIED DISLOCATION OF LEFT THUMB, INITIAL ENCOUNTER Status: Acute (5) Infected bite wound of finger Code(s): S61.259A - OPEN BITE OF UNSP FINGER WITHOUT DAMAGE TO NAIL, INIT ENCNTR; L08.9 - LOCAL INFECTION OF THE SKIN AND SUBCUTANEOUS TISSUE, UNSP Status: Acute (6) Elevated troponin I level Code(s): R74.8 - ABNORMAL LEVELS OF OTHER SERUM ENZYMES Status: Acute - Plan Assessment Patient is a 75 year old male with a PMH of CAD s/p CABG, Alzheimer's dementia and COPD. He was brought in by EMS after activating the emergency service. Found to have dislocated L thumb on arrival, s/p ORIF and I&D on 12/07 wound culture yielding yeast. Patient was also hypoxic on arrival, tested + for COVID 19. His hospital course complicated by acute decline in mental status and respiratory failure. He was given Haldol and developed worsened mental status a nd QT prolongation, T wave inversions and NSTEMI with maximum troponin of 0.65. I consulted cardiology as he was having chest pain and shortness of breath. Medical management was recommended. He also received 3 g of magnesium sulfate. The last 2 days patient has been slightly lethargic. He was found to have a sodium of 157 and is currently on volume repletion. Overall, patient is not appropriate to go back home when medically cleared. I have consulted the case management to help me with placement. Acute encephalopathy Metabolic encephalopathy due to hypernatremia, and Haldol-induced Taken off Haldol, avoid QT prolonging drugs Manage hypernatremia I will avoid medications such as benzodiazepines and antipsychotics for agitation since he is responding poorly to dose I voiced my concern to ID regarding use of fluconazole and QT prolongation will start pt on seroquel tonight Acute hypernatremia Bolus challenged with NS today Also started on free water replacement and D5 half NS for hypernatremia Monitor BMP every 4 hours Fungal infection of hand Intraoperative wound culture yielded yeast ID has been consulted and recommend waiting for final speciation to determine if it candidal infection In the meantime ID recommended micafungin if there was concern for QT prolongation with fluconazole NSTEMI with Hx of CAD s/p CABG Experienced chest pain shortly after haldol injections Morning jarrod to 0.65, acute Twi V3-V5 QT prolongation EKG Currently on medical therapy as per cardiology recommendation: Aspirin, atorvastatin, metoprolol and as needed nitroglycerin Also on anticoagulation Case management/Palliative care consulted for goals of care discussion Acute hypoxemic respiratory failure Cardiac vs pulmonary due to worsening COVID 19 infection His cxr has no consolidation, only emphysematous changes PE has been ruled out Successfully transitioned from BIPAP to nasal cannula Will wean down as tolerated COVID 19 pneumonia Day 6 of dexamethasone Did not qualify for Remdesivir as per pharmacy I will continue multivitamins and zinc CRP has trended down for the most part Continue supportive care Dislocated L thumb and infection s/p ORIF and I&D, IOP showing polymicrobial infection and yeast He is currently on broad-spectrum antibiotics Infectious disease has been consulted for antibiotics Continue MMP regimen and Lovenox for DVT prophylaxis Rib and shoulder pain Other x-ray ruled out fractures or injuries Occupational therapy and PT board brand manager has been consulted and we are contemplating SNF placement Dysphagia Passed swallow evaluation Resume diet as mental status improved COPD Emphysematous changes as per CXR Not in acute exacerbation As needed albuterol sulfate inhaler on board Alzheimer's dementia Continue supportive care 12/17 patient became more tachypneic unable to clear his secretions sounds very gurgly. Try to deep suction couple times was not very helpful. Got a blood gas worsening acidosis and retention of CO2. At this time we will try BiPAP and see if that helps the patient. I did call the MADELYN Bess who is the patient's friend. I called her twice and updated her about patient's condition. We will also get palliative care to see the patient. I would broaden his antibiotics concern for possible aspiration. I will stop the IV fluids I will start him on PPN make him n.p.o. for now and check labs including CBC, BMP, BNP. Patient is at high risk for intubation.
[2020-12-17 16:52] LABS: Anion Gap 14 mmol/L (10-20); BUN (Urea Nitrogen) 18 mg/dL (8.4-25.7); Calc. Creatinine Clearance 65 mL/min (70-130); Calcium 8.2 mg/dL (7.8-10.44); Carbon Dioxide 23 mmol/L (23-31); Chloride 111 mmol/L (98-107); Glucose 156 mg/dL (83-110); Potassium 4.3 mmol/L (3.5-5.1); Sodium 144 mmol/L (136-145)
[2020-12-17 16:55] LABS: Hemoglobin 11.5 g/dL (14.0-18.0); Mean Corpuscular HGB CONC 30.6 g/dL (32.0-36.0); Mean Corpuscular Hemoglobin 27.3 pg (27.0-31.0); Mean Corpuscular Volume 89.1 fL (78.0-98.0); Mean Platelet Volume 11.5 fL (7.4-10.4); Platelet Count 251 thou/uL (130-400); RBC Distribution Width 18.8 % (11.5-14.5); White Blood Cell (WBC) Count 17.1 thou/uL (4.8-10.8)
[2020-12-17 16:57] LABS: Anisocytosis SLIGHT = 6-15 cells (100X) (0-5/hpf); Band 10 % (5-11); MDiff Complete? YES; Monocytes 3 % (0-10); Neutrophil 87 % (42-75); Ovalocytes SLIGHT = 2-5 cells (100X) (0-1/hpf); Platelet Morphology Comment Appears Adequate; Polychromasia SLIGHT = 2-3 cells (100X) (0-2/hpf)
[2020-12-17] MEDS ORDERED: D5W-AA 4.25% with LYTES 1,000 ML IV SCH (17:00)
[2020-12-17] MEDS: MEROPENEM 1 GM/50 ML 1 GM in Premix Bag 1 BAG IVPB SCH (17:32)
[2020-12-17] MEDS ORDERED: Furosemide 40 MG/4 ML VIAL SLOW IVP SCH (18:00)
[2020-12-17] MEDS ORDERED: Electrolyte Replacement Protocol 1 EACH IVPB ONE (18:04)
[2020-12-17] MEDS ORDERED: Ketamine 50 MG/ML (10ML VIAL) ONE (18:07)
--- NOTE | 2020-12-17 18:10 | PDOC.EVN ---
Event Note - Event Note Event Note: pt on bipap not doing well. Called Maria Alejandra who is the POA and she stated that she wants everything to be done with the pt. will go ahead and intubated the patient. I did discuss that his overall prognosis is poor but they wanted everything for now to be done.
[2020-12-17] MEDS ORDERED: Ventilator Sedation Protocol 1 EACH FS SCH (18:15)
[2020-12-17] MEDS ORDERED: Propofol 1,000 MG/100 ML VIAL IV PRN (18:15)
[2020-12-17] MEDS ORDERED: Propofol BOLUS 1,000 MG/100 ML VIAL IV PRN (18:15)
[2020-12-17] MEDS ORDERED: Electrolyte Replacement Protocol FS PRN (18:15)
[2020-12-17] MEDS ORDERED: Morphine 2 MG/ML VIAL SLOW IVP PRN (18:15)
[2020-12-17] MEDS ORDERED: Fentanyl BOLUS 250 ML IVPB PRN (18:15)
[2020-12-17] MEDS ORDERED: Fentanyl CADD 100 ML IV SCH (18:15)
[2020-12-17] MEDS ORDERED: DISCONTINUE PREVIOUS NARCOTIC PAIN MEDICATIONS AND BENZODIAZEPINES FS SCH (18:15)
[2020-12-17] MEDS ORDERED: Lorazepam 2 MG/ML VIAL SLOW IVP PRN (18:15)
[2020-12-17] MEDS ORDERED: Propofol 1,000 MG/100 ML VIAL IV ONE (18:18)
[2020-12-17] MEDS ORDERED: Norepinephrine 8 MG/0.9% NS 250 ML ONE ×2 (18:32→23:32)
--- NOTE | 2020-12-17 19:00 | RAD ---
Chest one view HISTORY: Intubated. COMPARISON: Earlier exam on the same date. FINDINGS: Cardiac silhouette is magnified by projection. Pulmonary vasculature are unremarkable. Mediastinum slightly shifted rightward with patient rotation. Tip of the endotracheal catheter projec ts over the thoracic inlet. Proximal sidehole of the nasogastric tube projects just above the level of the diaphragm. Coarsened interstitial markings and subtle patchy ill-defined areas of groundglass infiltrate are sim ilar in appearance to the prior exam. No focal consolidation. No evidence of pneumothorax. IMPRESSION : Endotracheal catheter in good radiographic position. Nasogastric tube should probably be advanced approximately 10 cm for better positioning.
[2020-12-17] MEDS: Tamsulosin HCl 0.4 MG CAP PO SCH (20:50)
[2020-12-17] MEDS: Atorvastatin Calcium 20 MG TAB PO SCH (20:50)
[2020-12-17] MEDS: Losartan 25 MG TAB PO SCH (20:50)
--- NOTE | 2020-12-17 21:17 | PDOC.CNTRL ---
Central Line Procedure Note - Procedure Date: 12/17/20 Time: 20:30 - Description Focused site: femoral vein: Right Ultrasound guidance: Yes Patient tolerated procedure: well Procedure in Details: INDICATION: Medication administration, levophed PROCEDURE OPERATING TABLE ASSEMBLER: Dr Rosaura Munson, PGY1 ATTENDING PHYSICIAN: Dr Faisal Han In Attendance Y Ultrasound Used: Y CONSENT: Consent was obtained from patient's MPOA prior to the procedure. Indications, risks, and benefits were explained at length. PROCEDURE SUMMARY: The [facility] Central Line Insertion Practices form was completed by an independent observer starting with the first handwash prior to starting sterile technique. A time out was performed. My hands were washed immediately prior to the procedure. I wore a surgical cap, mask with protective eyewear, sterile gown and sterile gloves throughout the procedure. The RIGHT inguinal region was prepped using chlorhexidine scrub and draped in sterile fashion using a full drape and sterile probe cover employed. The femoral pulse was identified. Anesthesia was achieved using 1% lidocaine. Using real-time out of plane guidance, the introducer needle was inserted into the femoral vein under direct ultrasound visualization. Venous blood was withdrawn. The syringe was removed and a guidewire was advanced into the introducer needle. A small incision was made at the skin surface with a scalpel and the introducer needle was exchanged for a dilator over the guidewire. After appropriate dilation was obtained, the dilator was exchanged over the wire for a triple lumen central venous catheter. The wire was removed and the catheter was sutured in place at 20 cm. A sterile sorbaview shield was placed over the catheter at the insertion site. The patient tolerated the p rocedure without any hemodynamic compromise. At time of procedure completion, all ports aspirated and flushed properly. Estimated blood loss is 5mL. Addendum - Attending - Attending Attestation Date/Time: 12/18/20 1140 I was present. No complications. Consent obtained prior to procedure.
[2020-12-17 21:23] LABS: Actual Bicarbonate (HCO3a) 25.4 mEq/L (22-28); Base Excess (BEa) -5.1 mEq/L (-2.0 to +3.0); Calcium, Ionized (arterial) 1.19 mmol/L (1.12-1.30); Carboxyhemoglobin (COHb) 1.1 gm% (0.0-3.0); Hemoglobin (Hb) 13.3 g/dL (14.0-18.0); O2 Tension (PaO2), arterial 69.6 mmHg (> 70.0); Potassium - ABG Lab 4.09 mmol/L (3.70-5.30)
[2020-12-17] MEDS: Lidocaine Patch Removal 1 EACH TOP SCH (21:23)
[2020-12-17 21:24] LABS: pH, Arterial 7.14 (7.35-7.45)
[2020-12-17 21:26] LABS: CO2 Tension 75.5 mmHg (35.0-45.0)
[2020-12-17 22:25] LABS: Actual Bicarbonate (HCO3a) 24.3 mEq/L (22-28); Base Excess (BEa) -4.5 mEq/L (-2.0 to +3.0); Calcium, Ionized (arterial) 1.15 mmol/L (1.12-1.30); Carboxyhemoglobin (COHb) 0.8 gm% (0.0-3.0); Hemoglobin (Hb) 13.5 g/dL (14.0-18.0); O2 Tension (PaO2), arterial 97.7 mmHg (> 70.0); Potassium - ABG Lab 4.21 mmol/L (3.70-5.30)
[2020-12-17 22:27] LABS: pH, Arterial 7.21 (7.35-7.45)
[2020-12-17 22:28] LABS: ALV-art Gradient 538.425 mmHg (0-20); CO2 Tension 61.5 mmHg (35.0-45.0)
[2020-12-18] MEDS: Norepinephrine 8 MG/0.9% NS 250 ML IVPB SCH ×3 (02:12→08:58)
[2020-12-18] MEDS ORDERED: Albumin 25% 25 GM/100 ML BOT IVPB SCH ×2 (02:30→12:00)
[2020-12-18] MEDS: MEROPENEM 1 GM/50 ML 1 GM in Premix Bag 1 BAG IVPB SCH ×2 (03:28→10:13)
[2020-12-18] MEDS: Nitroglycerin 2% Ointment 1 INCH/1 GM Packet TOP SCH ×2 (03:29→11:09)
[2020-12-18] MEDS ORDERED: Sodium Chloride 0.9% 1,000 ML IV SCH (03:30)
[2020-12-18 04:23] LABS: INR-International Normal Ratio 1.8; Prothrombin Time 20.9 sec (12.0-14.7)
[2020-12-18 04:41] LABS: ALT (SGPT) 19 U/L (8-55); AST (SGOT) 20 U/L (5-34); Albumin 2.7 g/dL (3.4-4.8); Alkaline Phosphatase 77 U/L (40-110); Anion Gap 13 mmol/L (10-20); BUN (Urea Nitrogen) 24 mg/dL (8.4-25.7); Bilirubin, Total 0.8 mg/dL (0.2-1.2); Calc. Creatinine Clearance 44 mL/min (70-130); Calcium 7.3 mg/dL (7.8-10.44); Carbon Dioxide 21 mmol/L (23-31); Chloride 114 mmol/L (98-107); Globulin 2.4 g/dL (2.4-3.5); Glucose 93 mg/dL (83-110); Potassium 3.9 mmol/L (3.5-5.1); Protein, Total 5.1 g/dL (5.8-8.1); Sodium 144 mmol/L (136-145)
[2020-12-18 04:47] LABS: Band 38 % (5-11); Hemoglobin 10.7 g/dL (14.0-18.0); Hypochromia SLIGHT = 6-15 cells (100X) (0-5/hpf); Lymphocytes 8 % (21-51); MDiff Complete? YES; Mean Corpuscular HGB CONC 28.6 g/dL (32.0-36.0); Mean Corpuscular Hemoglobin 26.4 pg (27.0-31.0); Mean Corpuscular Volume 92.4 fL (78.0-98.0); Mean Platelet Volume 11.6 fL (7.4-10.4); Monocytes 25 % (0-10); Neutrophil 29 % (42-75); Nucleated RBC 8 % (0); Platelet Count 253 thou/uL (130-400); Platelet Morphology Comment Appears Adequate; RBC Distribution Width 19.5 % (11.5-14.5); Red Blood Cell (RBC) Count 4.04 mill/uL (4.70-6.10); White Blood Cell (WBC) Count 8.6 thou/uL (4.8-10.8)
[2020-12-18] MEDS ORDERED: Magnesium 2 GM/50 ML 2 GM in Premix Bag 1 BAG IVPB SCH (06:30)
[2020-12-18] MEDS ORDERED: Fentanyl CADD 100 ML ONE (07:51)
[2020-12-18] MEDS: Dexamethasone 4 mg/ml Vial SLOW IVP SCH (08:02)
[2020-12-18] MEDS: Magnesium Oxide 400 MG TAB PO SCH (08:02)
[2020-12-18] MEDS: Ascorbic Acid 500 mg Chewable Tablet PO SCH (08:02)
[2020-12-18] MEDS: Aspirin 81 mg Enteric Coated Tablet PO SCH (08:03)
[2020-12-18] MEDS: Zinc Sulfate 220 MG CAP PO SCH (08:03)
[2020-12-18] MEDS: Thiamine 100 MG TAB PO SCH (08:03)
[2020-12-18] MEDS: Amiodarone 200 MG TAB PO SCH (08:04)
[2020-12-18] MEDS: Apixaban 2.5 MG TAB PO SCH (10:13)
[2020-12-18 10:56] VITALS: TEMP 100.2
[2020-12-18] MEDS: Lidocaine 5% Patch TD SCH (11:09)
[2020-12-18] MEDS: Iron Polysaccharides Complex 150 MG CAP PO SCH (11:26)
--- NOTE | 2020-12-18 12:28 | PDOC.EVN ---
Event Note - Event Note Event Note: spoke with Belinda pt's POA. They would like everyhthing to be done but if the pt's heart stops they do not want any cpr or compression but they still want to keep going with medical treatment.
[2020-12-18] MEDS ORDERED: Morphine 2 MG/ML VIAL SLOW IVP PRN (12:49)
[2020-12-18 14:28] VITALS: BP 108/45
[2020-12-18] MEDS ORDERED: Morphine 10 MG/0.5 ML ORAL SYRINGE ONE (14:35)
--- NOTE | 2020-12-18 16:33 | CON ---
DATE OF CONSULTATION: 12/18/2018 HISTORY OF PRESENT ILLNESS: Mendoza Kat is an unfortunate 75-year-old male. History is obtained from his power of health care her and her may have been best friends for 35 years. Mr. Kat's has passed before him. He lives on their property and they go over and check on him everyday, but they state that he has been reaching a point where they did not think he could live independently much longer. He actually told him 3 weeks ago that he was ready to pass away. He required intubation yesterday and was transferred to the ICU for COVID pneumonia. I discussed with [facility] issues surrounding dementia in a ventilated patient, pressors in a ventilated patient, and asked them what their wishes were with regard to life support, etc. They were both tearful, but stated that they wanted him to be at peace and I would agree with this. Demented patients do not do well with mechanical ventilation and cannot successfully wean for very long ever in my experience. I explained to the friends that the best way to approach this would be to stop his pressors and if he does not pass away with that, then terminally extubate him and proceed forward with comfort care. They were very appreciative and wanted to execute this plan. PAST MEDICAL HISTORY: 1. Remarkable for admission for an infected thumb on admission. 2. History of dementia. FAMILY HISTORY: Negative for lung disease in early age. As mentioned, he has already lost his . SOCIAL HISTORY: He is nonsmoker and nondrinker. PAST SURGICAL HISTORY: He has undergone operative repair of his open finger fracture/dislocation. PHYSICAL EXAMINATION: VITAL SIGNS: Heart rates in the 60s, blood pressure on high-dose Levophed was around 100 systolic, respiratory rate was in the 30s. GENERAL: He was unresponsive because of sedation. LUNGS: He had coarse equal breath sounds. HEART: Regular rhythm. ABDOMEN: Soft. EXTREMITIES: Without edema. IMPRESSION: 1. COVID pneumonia with respiratory failure. 2. Advanced dementia. We will proceed forward with [facility] health care's wishes comfort care. The hospitalist recommended Hospice consultation, but I do not feel this is appropriate. It is not possible to get Hospice up to the hospital quickly and I suspect he will succumb to this very quickly. Critical care time, 40 minute. Job ID: [id number] [email or web address]
--- NOTE | 2020-12-18 16:46 | PDOC.DS.DS ---
Provider - Provider Date of Admission: 12/06/20 16:07 Date of Discharge: 12/18/20 Admitting Provider: Patsy Rome MD Consultations: Cardiology, Infectious Disease Primary Care Physician: NO PCP PROVIDER Course - Hospital Course Hospital Course: Patient is a 75 year old male with a PMH of CAD s/p CABG, Alzheimer's dementia and COPD. He was brought in by EMS after activating the emergency service. Found to have dislocated L thumb on arrival, s/p ORIF and I&D on 12/07 wound culture yielding yeast. Patient was also hypoxic on arrival, tested + for COVID 19. His hospital course complicated by acute decline in mental status and respiratory failure. He was given Haldol and developed worsened mental status and QT prolongation, T wave inversions and NSTEMI with maximum troponin of 0.65. I consulted cardiology as he was having chest pain and shortness of breath. Medical management was recommended. He also received 3 g of magnesium sulfate. The last 2 days patient has been slightly lethargic. He was found to have a sodium of 157 and is currently on volume repletion. Patient's mentation continued to worsen at this time he was unable to clear his secretions became very tachypneic initially BiPAP was tried without success. Patient's antibiotics were broadened. Patient was deep suctioned multiple times however this did not help. We communicated multiple times with patient's MADELYN Bess. Patient at this time was intubated. He was also put on pressors. However family after talking to pulmonology wanted to withdraw care. Resuscitation Status: 12/18/20 12:17 Resuscitation Status Routine Resuscitation Status: DNAR: NO Resuscitation Discussed with: spoke with mayi JOSHI - Labs Lab Results: 12/18/20 03:30 12/18/20 03:30 Abnormal Lab Results - Last 48 hrs 12/17/20 05:03: Chloride 113 H, Carbon Dioxide 22 L, C-Reactive Protein 7.86 H, Serum Total Protein 5.5 L, Albumin 2.6 L, Albumin/Globulin Ratio 0.9 L 12/17/20 05:03: RBC 3.67 L, Hgb 9.9 L, Hct 32.0 L, MCHC 30.9 L, RDW 18.6 H, MPV 11.2 H, Neutrophils % 86.1 H, Lymphocytes % 6.4 L, Neutrophils # 8.7 H, Lymphocytes # 0.7 L, Monocytes # 0.7 H 12/17/20 15:31: ABG pH 7.29 L, ABG pCO2 47.8 H, ABG pO2 70.7 H, ABG O2 Sat (Measured) 90.1 L, ABG O2 Content 15.3 L, ABG Base Excess -4.0 L, ABG Hematocrit 36.0 L, ABG Hemoglobin 12.2 L, ABG Oxyhemoglobin 89.0 L, ABG Deoxyhemoglobin 9.8 H, A-a O2 Gradient 154.750 H, Chloride 113 H 12/17/20 16:22: Chloride 111 H 12/17/20 16:23: B-Natriuretic Peptide 1352.3 H 12/17/20 16:23: WBC 17.1 H, RBC 4.20 L, Hgb 11.5 L, Hct 37.5 L, MCHC 30.6 L, RDW 18.8 H, MPV 11.5 H, Neutrophils % (Manual) 87 H 12/17/20 21:14: ABG pH 7.14 L*, ABG pCO2 75.5 H*, ABG O2 Sat (Measured) 85.9 L*, ABG O2 Content 15.9 L, ABG Base Excess -5.1 L, ABG Hematocrit 39.0 L, ABG Hemoglobin 13.3 L, ABG Oxyhemoglobin 84.9 L, ABG Deoxyhemoglobin 13.9 H, Chloride 113 H 12/17/20 22:22: ABG pH 7.21 L*, ABG pCO2 61.5 H*, ABG pO2 97.7 H, ABG Base Excess -4.5 L, ABG Hematocrit 40.0 L, ABG Hemoglobin 13.5 L, ABG Deoxyhemoglobin 4.5 H, A-a O2 Gradient 538.425 H, Chloride 114 H 12/18/20 03:30: Chloride 114 H, Carbon Dioxide 21 L, Calcium 7.3 L, Serum Total Protein 5.1 L, Albumin 2.7 L, Albumin/Globulin Ratio 1.1 L 12/18/20 03:30: C-Reactive Protein 16.58 H 12/18/20 03:30: RBC 4.04 L, Hgb 10.7 L, Hct 37.3 L, MCH 26.4 L, MCHC 28.6 L, RDW 19.5 H, MPV 11.6 H, Neutrophils % (Manual) 29 L, Band Neuts % (Manual) 38 H, Lymphocytes % (Manual) 8 L, Monocytes % (Manual) 25 H, Nucleated RBCs # (Man) 8 H 12/18/20 03:30: PT 20.9 H Microbiology - Entire Visit 12/07/20 17:49 Tissue - Wound Bacterial Culture - Final Yeast species 12/07/20 17:49 Tissue - Wound Anaerobic Culture - Final 12/07/20 17:49 Tissue - Wound Bacterial Culture - Final Yeast species 12/07/20 17:49 Tissue - Wound Anaerobic Culture - Final 12/06/20 14:11 Venous blood - Right Arm Blood Culture - Final NO GROWTH IN 5 DAYS 12/06/20 14:15 Venous blood - Left Hand Blood Culture - Final NO GROWTH IN 5 DAYS - Physical Exam Vitals: Vital Signs (12 hours) Temp Pulse Resp BP Pulse Ox 12/18/20 12:15 64 108/45 L 12/18/20 12:00 22 H 12/18/20 10:00 100.2 F H 22 H 12/18/20 08:00 22 H 100 12/18/20 07:28 68 12/18/20 06:00 23 H Weight Admit Weight 134 lb 4.184 oz Weight 141 lb 1.533 oz Most Recent Monitor Data Heart Rate from ECG 64 NIBP 57/31 NIBP BP-Mean 39 Respiration from ECG 22 SpO2 100 Physical Exam: The patient was seen and examined on the day of discharge. Problem - Problem (1) COVID-19 virus infection Code(s): U07.1 - COVID-19 Status: Acute (2) Dementia Code(s): F03.90 - UNSPECIFIED DEMENTIA WITHOUT BEHAVIORAL DISTURBANCE Status: Acute (3) Dislocation of left thumb Code(s): S63.105A - UNSPECIFIED DISLOCATION OF LEFT THUMB, INITIAL ENCOUNTER Status: Acute (4) Aspiration pneumonia Code(s): J69.0 - PNEUMONITIS DUE TO INHALATION OF FOOD AND VOMIT Status: Acute (5) Acute on chronic respiratory failure with hypoxia and hypercapnia Code(s): J96.21 - ACUTE AND CHRONIC RESPIRATORY FAILURE WITH HYPOXIA; J96.22 - ACUTE AND CHRONIC RESPIRATORY FAILURE WITH HYPERCAPNIA Status: Acute Plan - Discharge Medications Home Medications: Medication Instructions Recorded Confirmed Type Amiodarone HCl [Pacerone] 200 mg PO BID 12/06/20 12/06/20 History Apixaban [Eliquis] 2.5 mg PO BID 12/06/20 12/06/20 History Ascorbic Acid [Vitamin C] 1,000 mg PO DAILY 12/06/20 12/06/20 History Atorvastatin Calcium 20 mg PO HS 12/06/20 12/06/20 History Iron Polysaccharides Complex 150 mg PO DAILY 12/06/20 12/06/20 History [Niferex] Losartan Potassium 25 mg PO HS 12/06/20 12/06/20 History Magnesium Oxide [Mag-Oxide] 200 mg PO BID-WM 12/06/20 12/06/20 History Metoprolol Succinate [Toprol XL] 12.5 mg PO DAILY 12/06/20 12/06/20 History Pantoprazole [Protonix] 40 mg PO DAILY 12/06/20 12/06/20 History Potassium Chloride 20 meq PO DAILY 12/06/20 12/06/20 History Tamsulosin HCl [Flomax] 0.4 mg PO HS 12/06/20 12/06/20 History Allergies: No Known Allergies Allergy (Verified 12/06/20 20:14) - Follow up Plan Referrals: [facility] [Outside] PROVIDER,NO PCP [Primary Care Provider] - Disposition: Quality - Care Measures CORE MEASURES:: N/A
--- NOTE | 2020-12-18 19:36 | EKG ---
Test Reason : ROUTINE Blood Pressure : / mmHG Vent. Rate : 099 BPM Atrial Rate : 099 BPM P-R Int : 166 ms QRS Dur : 110 ms QT Int : 400 ms P-R-T Axes : 000 064 081 degrees QTc Int : 513 ms Sinus rhythm Septal infarct , age undetermined Prolonged QT Abnormal ECG Confirmed by KEE PRITCHETT MD ([id number]) on 12/18/2020 7:36:38 PM Referred By: PRINCE JEREZ Confirmed By:KEE PRITCHETT MD
--- NOTE | 2020-12-18 19:37 | EKG ---
Test Reason : Blood Pressure : / mmHG Vent. Rate : 060 BPM Atrial Rate : 060 BPM P-R Int : 202 ms QRS Dur : 102 ms QT Int : 536 ms P-R-T Axes : 063 064 081 degrees QTc Int : 536 ms Normal sinus rhythm T wave abnormality, consider anterior ischemia Prolonged QT Abnormal ECG When compared with ECG of 09-DEC-2020 23:30, (Unconfirmed) Fusion complexes are no longer Present Vent. rate has decreased BY 39 BPM Criteria for Septal infarct are no longer Present T wave inversion now evident in Anterior leads Nonspecific T wave abnormality no longer evident in Lateral leads Confirmed by KEE PRITCHETT MD ([id number]) on 12/18/2020 7:37:23 PM Referred By: MERI Confirmed By:KEE PRITCHETT MD
--- NOTE | 2020-12-18 19:38 | EKG ---
Test Reason : Blood Pressure : / mmHG Vent. Rate : 075 BPM Atrial Rate : 075 BPM P-R Int : 180 ms QRS Dur : 104 ms QT Int : 546 ms P-R-T Axes : 067 068 082 degrees QTc Int : 609 ms Normal sinus rhythm Voltage criteria for left ventricular hypertrophy Prolonged QT Abnormal ECG When compared with ECG of 10-DEC-2020 15:11, (Unconfirmed) QT has lengthened Confirmed by KEE PRITCHETT MD ([id number]) on 12/18/2020 7:38:06 PM Referred By: PRINCE JEREZ Confirmed By:KEE PRITCHETT MD
--- NOTE | 2020-12-18 19:38 | EKG ---
Test Reason : Blood Pressure : / mmHG Vent. Rate : 061 BPM Atrial Rate : 061 BPM P-R Int : 186 ms QRS Dur : 100 ms QT Int : 542 ms P-R-T Axes : 035 072 084 degrees QTc Int : 545 ms Normal sinus rhythm Nonspecific T wave abnormality Prolonged QT Abnormal ECG When compared with ECG of 09-DEC-2020 17:07, (Unconfirmed) QT has lengthened Confirmed by YARELY QUAN, KEE ([id number]) on 12/18/2020 7:37:29 PM Referred By: MERI Confirmed By:KEE PRITCHETT MD
--- NOTE | 2020-12-18 19:38 | EKG ---
Test Reason : Blood Pressure : / mmHG Vent. Rate : 088 BPM Atrial Rate : 088 BPM P-R Int : 152 ms QRS Dur : 104 ms QT Int : 436 ms P-R-T Axes : 044 066 051 degrees QTc Int : 527 ms Normal sinus rhythm Prolonged QT Abnormal ECG When compared with ECG of 11-DEC-2020 10:32, (Unconfirmed) Sinus rhythm has replaced Junctional rhythm Confirmed by YARELY QUAN, KEE ([id number]) on 12/18/2020 7:37:54 PM Referred By: MERI Confirmed By:KEE PRITCHETT MD
[2020-12-18] MEDS ORDERED: Pantoprazole 40 MG VIAL IVP SCH (21:00)
[2020-12-19 11:43] LABS: Ref Lab Test Ordered YEAST ID & SUSC; Reference Lab Name LABCORP
== END 2020-12-18 14:45 | disposition expired | DRG 981 ==
LOC: ERS 12:41 → 2SW 16:07 → OBSVTOIN 16:07 → 2SE 12-10 06:31 → IMCU/EMU 12-17 18:16
PROVIDERS: ADMIT Internal Medicine; ATTEND Internal Medicine
PROC: 8E0ZXY6 Isolation (ICD-10-PCS; principal; 2020-12-06)
PROC: 0PBQ0ZZ Excision of Left Metacarpal, Open Approach (ICD-10-PCS; 2020-12-07)
PROC: 01Q Peripheral Nervous System, Repair (ICD-10-PCS; 2020-12-07)
PROC: 01Q Peripheral Nervous System, Repair (ICD-10-PCS; 2020-12-07)
PROC: 0RSX04Z Reposition Left Finger Phalangeal Joint with Internal Fixation Device, Open Approach (ICD-10-PCS; 2020-12-07)
PROC: XW033E5 Introduction of Remdesivir Anti-infective into Peripheral Vein, Percutaneous Approach, New Technology Group 5 (ICD-10-PCS; 2020-12-10)
PROC: 5A09457 Assistance with Respiratory Ventilation, 24-96 Consecutive Hours, Continuous Positive Airway Pressure (ICD-10-PCS; 2020-12-10)
PROC: 0BH17EZ Insertion of Endotracheal Airway into Trachea, Via Natural or Artificial Opening (ICD-10-PCS; 2020-12-17)
PROC: 5A1935Z Respiratory Ventilation, Less than 24 Consecutive Hours (ICD-10-PCS; 2020-12-17)
PROC: 3E033XZ Introduction of Vasopressor into Peripheral Vein, Percutaneous Approach (ICD-10-PCS; 2020-12-17)
PROC: 06HY33Z Insertion of Infusion Device into Lower Vein, Percutaneous Approach (ICD-10-PCS; 2020-12-17)
DX: U07.1 COVID-19 (principal); I21.4 Non-ST elevation (NSTEMI) myocardial infarction; J12.82 Pneumonia due to coronavirus disease 2019; G92 Toxic encephalopathy; J69.0 Pneumonitis due to inhalation of food and vomit; J96.21 Acute and chronic respiratory failure with hypoxia; J96.22 Acute and chronic respiratory failure with hypercapnia; J44.0 Chronic obstructive pulmonary disease with (acute) lower respiratory infection; R64 Cachexia; Z68.1 Body mass index [BMI] 19.9 or less, adult; E87.0 Hyperosmolality and hypernatremia; S63.438A Traumatic rupture of volar plate of other finger at metacarpophalangeal and interphalangeal joint, initial encounter; Z66 Do not resuscitate; Z51.5 Encounter for palliative care; S63.125A Dislocation of interphalangeal joint of left thumb, initial encounter; X58.XXXA Exposure to other specified factors, initial encounter; S61.052A Open bite of left thumb without damage to nail, initial encounter; L08.9 Local infection of the skin and subcutaneous tissue, unspecified; I25.10 Atherosclerotic heart disease of native coronary artery without angina pectoris; G30.9 Alzheimer's disease, unspecified; F02.80 Dementia in other diseases classified elsewhere, unspecified severity, without behavioral disturbance, psychotic disturbance, mood disturbance, and anxiety; M25.511 Pain in right shoulder; G89.29 Other chronic pain; R07.81 Pleurodynia; I48.0 Paroxysmal atrial fibrillation; B37.9 Candidiasis, unspecified; G31.84 Mild cognitive impairment of uncertain or unknown etiology; T42.4X5A Adverse effect of benzodiazepines, initial encounter; T43.4X5A Adverse effect of butyrophenone and thiothixene neuroleptics, initial encounter; R13.10 Dysphagia, unspecified; R00.1 Bradycardia, unspecified; I25.2 Old myocardial infarction; Z95.1 Presence of aortocoronary bypass graft; Z87.891 Personal history of nicotine dependence; Z79.899 Other long term (current) drug therapy; Z79.01 Long term (current) use of anticoagulants; Z78.1 Physical restraint status
CPT/HCPCS: 0240U; 36415; 36416; 36600; 71045; 71275; 76000; 80048; 80053; 80061; 80076; 80202; 82550; 82553; 82728; 82805; 83605; 83735; 83880; 84100; 84484; 85025; 85379; 85610; 86140; 86769; 87040; 87070; 87106; 87205; 93005; 93010; 94002; 94003; 94660; 94667; 96365; 96367; C9113; J0360; J0692; J0696; J1100; J1450; J1630; J1650; J1885; J1940; J2060; J2185; J2270; J2405; J2704; J3010; J3260; J3370; J3475; J3490; J7050; P9047; Q9967; S0020